=== PATIENT | male | born 1985 | race Caucasian/White ===

== ENCOUNTER 2023-04-23 09:48 | Emergency (ER) | payer SELFPAY ==
--- OUTSIDE RECORDS SUMMARY | 2023-04-23 10:05 | XMS REPORT | Continuity of Care Document ---
:1985 Author Organization [facility] t Address [address] [facility] [address] [place] [id number] Care Team Providers Name Role Phone PCP, PATIENT DOES NOT HAVE A Primary Care Physician Unavaila ble RADIOLOGY Attending Clinician Unavailable Radiology Attending Clinician Unavailable STEFANI WATSON Attending Clinician Unavailable Chapincito Anderson MD Attending Clinician Mahad Hayden DO Attending Clinician Stefani Dean Attending Clinician Jose Angel Kate DO Attending Clinician Lab, Ad[facility] I Attending Clinician Unavailable Malorie Altamirano Attending Clinician Doctor Unassigned, [place] Attending Clinician Unavailable Milana Arreguin DO Attending Clinician MILANA ARREGUIN Attending Clinician Unavailable Harsh Beaver S Attending Clinician HARSH BADILLO Attending Clinician Unavailable Patricia Nassar RN Attending Clinician Binh Caruso Attending Clinician Valarie Felder MD Attending Clinician BINH TAVERAS Attending Clinician Unavailable Mickie Roberts Attending Clinician Jeremias Hazel Attending Clinician Dora Olivia MD Attending Clinician JEREMIAS ELIZONDO Attending Clinician Unavailable BRIANA NOLAN Admitting Clinician Unavailable Bradford MUNIZ, Valarie Admitting Clinician Corwin MUNIZ, Dora Admitting Clinician Payers Payer Name Policy Type Policy Number Effective Date Expiration Date S lalo [employer] [id number] 2020 00:00:00 Problems Condition Condition Condition Status Onset Resolution Last Treating Co mments Source Name Details Category Date Date Treatment Clinician Date Alcohol Alcohol Disease Active Univers withdrawal withdrawal 8-02 it y of 00:: [place] [facility] Sinus Sinus Disease Active Univers tachycardi tachycardi 2- it y of a a 00:: [place] [address] [facility] Essential Essential Disease Active Uni vers hypertensi hypertensi 2-29 it y of on on 00:: [place] [address] [facility] Branch Alcohol Alcohol Disease Active Univers intoxicati intoxicati 2-28 it y of on on 00:: [place] [address] Medical Branch Obesity Obesity Disease Active Univers (BMI (BMI 4-17 ity of 30-39.9) 30-39.9) 00:00: [place] [address] Medical Branch Allergies, Adverse Reactions, Alerts Allergy Allergy Status Severity Reaction(s) Onset Inactive Treating Comm ents Source Name Type Date Date Clinician NO KNOWN Drug Active Univers ALLERGIE Class ity of S [place] [facility] Social History Social Habit Start Date Stop Date Quantity Comments Source Exposure to Not sure Rembrandt of SARS-CoV-2 [place] [facility] (event) Branch History [facility] University o f Alcohol Binge [place] [facility] History of Current smoker University of tobacco use [place] [facility] History [facility] University o f Alcohol Comment [place] [facility] Alcohol intake 2021-01-04 2021-01-04 Current drinker Unive rsity of 00:00:00 00:00:00 of alcohol [place] [facility] (finding) Branch History [facility] 2020-01-19 2020-01-19 5 University o f Alcohol Frequency 00:00:00 00:00:00 [place] [facility] History [facility] 2020-01-19 2020-01-19 5 University o f Alcohol Std 00:00:00 00:00:00 [place] [facility] Tobacco use and 2020-01-18 2020-01-18 Smokeless tobacco Un iversity of exposure 00:00:00 00:00:00 non-user [facility] Sex Assigned At [birth year] Universit y of 00:00:00 00:00:00 [facility] Smoking Status Start Date Stop Date Source Ex-smoker 2020-01-18 00:00:00 2020-01-18 00:00:00 [facility] Medications Ordered Filled Start Stop Current Ordering Indication Dosage Frequency Signature Comments Components Source Medication Medication Date Date Medication? Clinician (SIG) Name Name TAKE 1 2022-0 No TABLET 9-15 DAILY. 00:00: 00 TAKE 1 2022-0 No 10 TABLET 9-05 TWICE 00:00: DAILY. 00 TAKE 1 2022-0 No TABLET 9-05 TWICE 00:00: DAILY. 00 TAKE 1 2022-0 No 750 TABLET AT 8-09 BEDTIME 00:00: NEEDED. 00 TAKE 1 2022-0 No 750 TABLET AT 8-09 BEDTIME 00:00: NEEDED. 00 TAKE 1 2022-0 No 750 TABLET AT 8-09 BEDTIME 00:00: NEEDED. 00 lisinopril 2022-0 No 1mg 5 mg tablet 7 00:00: 00 propranolol 2022-0 No 1mg 10 mg 7-22 tablet 00:00: 00 lisinopril 2022-0 No 1mg 5 mg tablet 7 00:00: 00 propranolol 2022-0 No 1mg 10 mg 7-22 tablet 00:00: 00 TAKE 1 2022-0 No TABLET 7-22 DAILY. 00:00: 00 propranolol 2022-0 No 1mg 10 mg 7-22 tablet 00:00: 00 lisinopril 2022-0 No 1mg 5 mg tablet 6 00:00: 00 propranolol 2022-0 No 1mg 10 mg 6-22 tablet 00:00: 00 lisinopril 2022-0 No 1mg 5 mg tablet 6 00:00: 00 propranolol 2022-0 No 1mg 10 mg 6-22 tablet 00:00: 00 lisinopril 2022-0 No 1mg 5 mg tablet 05-12 00:00: 00 propranolol 2022-0 No 1mg 10 mg 6-22 tablet 00:00: 00 lisinopril 2022-0 No 1mg 5 mg tablet 05-12 00:00: 00 propranolol 2022-0 No 1mg 10 mg 6-22 tablet 00:00: 00 lisinopril 2022-0 No 1mg 5 mg tablet 5-16 00:00: 00 propranolol 2022-0 No 1mg 10 mg 5-16 tablet 00:00: 00 lisinopril 2022-0 No 1mg 5 mg tablet 5-16 00:00: 00 propranolol 2022-0 No 1mg 10 mg 5-16 tablet 00:00: 00 lisinopril 2022-0 No 1mg 5 mg tablet 5-16 00:00: 00 propranolol 2022-0 No 1mg 10 mg 5-16 tablet 00:00: 00 lisinopril 2022-0 No 1mg 5 mg tablet 5-16 00:00: 00 propranolol 2022-0 No 1mg 10 mg 5-16 tablet 00:00: 00 lisinopril 2022-0 No 1mg 5 mg tablet 1 00:00: 00 propranolol 2022-0 No 1mg 10 mg 1-25 tablet 00:00: 00 lisinopril 2022-0 No 1mg 5 mg tablet 125 00:00: 00 lisinopril 2022-0 No 1mg 5 mg tablet 1 00:00: 00 propranolol 2022-0 No 1mg 10 mg 1-25 tablet 00:00: 00 propranolol 2022-0 No 1mg 10 mg 1-25 tablet 00:00: 00 lisinopril 2022-0 No 1mg 5 mg tablet 1 00:00: 00 propranolol 2022-0 No 1mg 10 mg 1-25 tablet 00:00: 00 lisinopril 1-1 No 1mg 5 mg tablet 029 00:00: 00 propranolol 2021-1 No 1mg 10 mg 0-29 tablet 00:00: 00 lisinopril 2021-1 No 1mg 5 mg tablet 0-29 00:00: 00 propranolol 2021-1 No 1mg 10 mg 0-29 tablet 00:00: 00 lisinopril 2021-1 No 1mg 5 mg tablet 0-29 00:00: 00 propranolol 2021-1 No 1mg 10 mg 0-29 tablet 00:00: 00 lisinopril 2021-1 No 1mg 5 mg tablet 0-29 00:00: 00 propranolol 2021-1 No 1mg 10 mg 0-29 tablet 00:00: 00 lisinopril 2020-1 No 1mg 5 mg tablet 0-12 00:00: 00 lisinopril 2020-1 No 1mg 5 mg tablet 0-12 00:00: 00 lisinopril 2020-1 No 1mg 5 mg tablet 0-12 00:00: 00 lisinopril 2020-1 No 1mg 5 mg tablet 0-12 00:00: 00 lisinopril 1-0 No 1mg 5 mg tablet 7 00:00: 00 propranolol 2021-0 No 1mg 10 mg 7-07 tablet 00:00: 00 lisinopril 1-0 No 1mg 5 mg tablet 05-27 00:00: 00 propranolol 1-0 No 1mg 10 mg 7-07 tablet 00:00: 00 lisinopril 1-0 No 1mg 5 mg tablet 05-27 00:00: 00 propranolol 1-0 No 1mg 10 mg 7-07 tablet 00:00: 00 lisinopril 1-0 No 1mg 5 mg tablet 05-27 00:00: 00 propranolol 1-0 No 1mg 10 mg 7-07 tablet 00:00: 00 hydrOXYzine 2020-0 2020- No 25mg 25 mg, Uni vers (ATARAX) 01-05 Oral, ity of tablet 25 00:00: 23:04 ONCE, 1 [place] mg [place] :[place] dose, [facility] 01/04/21 at Branch 1800, TIA metoclopram 2020- No 10mg 10 mg, Uni vers niko HCl 01-04 Slow IV ity of (REGLAN) 23:45: 22:39 Push, [place] injection 00 :00 ONCE, 1 Medical 10 mg dose, [place] Branch 01/04/21 at 1745, TIA ondansetron 2020- No 4mg 4 mg, Slow Univers (ZOFRAN 01-04 IV Push, ity of (PF)) 20:30: 19:33 ONCE, 1 [place] injection 4 00 :00 dose, [facility] mg 01/04/21 at Branch 1430, TIA LORazepam 2020-0 2020- No 1mg 1 mg, Slow U nivers (ATIVAN) 2-14 02-14 IV Push, ity of injection 1 20:30: 19:35 ONCE, 1 [place] mg 00 :00 dose, [facility] 01/04/21 at Branch 1430, STAT NaCl 0.9% 2020- No 1000mL at 999 Uni vers (NS) bolus -14 02-14 mL/hr, ity of infusion 19:30: 23:52 1,000 mL, [place] 1,000 mL 00 :00 IV Medical Infusion, Branch ONCE, 1 dose, [place] 01/04/21 at 1330, TIA hydrOXYzine 2020-0 Yes [id number] 25mg Take 1 Univers 25 mg 2-14 tablet by ity of tablet 00:00: mouth [place] 00 every 6 Medical (six) Branch hours as needed for Anxiety. hydrOXYzine 2020-0 Yes [id number] 25mg Take 1 Univers 25 mg 2-14 tablet by ity of tablet 00:00: mouth [place] 00 every 6 Medical (six) Branch hours as needed for Anxiety. hydrOXYzine 2020-0 Yes [id number] 25mg Take 1 Univers 25 mg 2-14 tablet by ity of tablet 00:00: mouth [place] 00 every 6 Medical (six) Branch hours as needed for Anxiety. hydrOXYzine 2020-0 Yes [id number] 25mg Take 1 Univers 25 mg 2-14 tablet by ity of tablet 00:00: mouth [place] 00 every 6 Medical (six) Branch hours as needed for Anxiety. hydrOXYzine 2020-0 Yes [id number] 25mg Take 1 Univers 25 mg 2-14 tablet by ity of tablet 00:00: mouth [place] 00 every 6 Medical (six) Branch hours as needed for Anxiety. hydrOXYzine 2020-0 Yes [id number] 25mg Take 1 Univers 25 mg 2-14 tablet by ity of tablet 00:00: mouth [place] 00 every 6 Medical (six) Branch hours as needed for Anxiety. hydrOXYzine 2020-0 Yes [id number] 25mg Take 1 Univers 25 mg 2-14 tablet by ity of tablet 00:00: mouth [place] 00 every 6 Medical (six) Branch hours as needed for Anxiety. hydrOXYzine 2020-0 Yes [id number] 25mg Take 1 Univers 25 mg 2-14 tablet by ity of tablet 00:00: mouth [place] 00 every 6 Medical (six) Branch hours as needed for Anxiety. hydrOXYzine 2020-0 Yes [id number] 25mg Take 1 Univers 25 mg 2-14 tablet by ity of tablet 00:00: mouth [place] 00 every 6 Medical (six) Branch hours as needed for Anxiety. lisinopril 1-0 No 1mg 5 mg tablet 12-17 00:00: 00 lisinopril 1-0 No 1mg 5 mg tablet 12-17 00:00: 00 propranolol 1-0 No 1mg 10 mg -27 tablet 00:00: 00 propranolol 1-0 No 1mg 10 mg -27 tablet 00:00: 00 lisinopril 1-0 No 1mg 5 mg tablet 12-17 00:00: 00 propranolol 1-0 No 1mg 10 mg -27 tablet 00:00: 00 lisinopril 1-0 No 1mg 5 mg tablet 12-17 00:00: 00 propranolol 1-0 No 1mg 10 mg -27 tablet 00:00: 00 lisinopril 1-0 No 1mg 5 mg tablet 12-12 00:00: 00 propranolol 1-0 No 1mg 10 mg -22 tablet 00:00: 00 lisinopril 1-0 No 1mg 5 mg tablet 12-12 00:00: 00 propranolol 1-0 No 1mg 10 mg -22 tablet 00:00: 00 lisinopril 1-0 No 1mg 5 mg tablet 12-12 00:00: 00 propranolol 1-0 No 1mg 10 mg -22 tablet 00:00: 00 lisinopril 1-0 No 1mg 5 mg tablet 12-12 00:00: 00 propranolol 1-0 No 1mg 10 mg -22 tablet 00:00: 00 ondansetron 2019- No 4mg 4 mg, Slow Univers (ZOFRAN 06-29 IV Push, ity of (PF)) 00:15: 23:24 ONCE, 1 [place] injection 4 00 :00 dose, [facility] Med ical mg 06/28/20 at Branch 1915, TIA iohexol 0 2020- No 120mL 120 mL, Unive rs (OMNIPAQUE 06-28 08-08 Intravenou it y of 350 22:30: 22:30 s, ONCE, 1 [place] BULK-150 00 :00 dose, Sat Medica l mL) 06/28/20 at Branch injection 1730, 120 mL Routine ondansetron 2020-0 2020- No 4mg 4 mg, Univ ers (ZOFRAN-ODT 06-26- Oral, ity of ) 15:45: 14:38 ONCE, 1 [place] disintegrat 00 :00 dose, [facility] Med ical ing tablet 06/26/20 at Bran ch 4 mg 1045, Routine chlordiazeP 2020-0 2020- No 50mg 50 mg, Uni vers OXIDE 06-26-06 Oral, ity of (LIBRIUM) 15:15: 14:17 ONCE, 1 [place] capsule 50 00 :00 dose, [facility] Medi michelle mg 06/26/20 at Branch 1015, TIA ondansetron 2020-0 Yes [id number] 4mg Take 1 Univers 4 mg 8-06 tablet by ity of disintegrat 00:00: mouth [place] ing tablet 00 every 8 Medica l (eight) Branch hours as needed for Nausea and Vomiting (N/V). ondansetron 2020-0 Yes [id number] 4mg Take 1 Univers 4 mg 8-06 tablet by ity of disintegrat 00:00: mouth [place] ing tablet 00 every 8 Medica l (eight) Branch hours as needed for Nausea and Vomiting (N/V). ondansetron 2020-0 Yes [id number] 4mg Take 1 Univers 4 mg 8-06 tablet by ity of disintegrat 00:00: mouth [place] ing tablet 00 every 8 Medica l (eight) Branch hours as needed for Nausea and Vomiting (N/V). ondansetron 2020-0 Yes [id number] 4mg Take 1 Univers 4 mg 8-06 tablet by ity of disintegrat 00:00: mouth [place] ing tablet 00 every 8 Medica l (eight) Branch hours as needed for Nausea and Vomiting (N/V). ondansetron 2020-0 Yes [id number] 4mg Take 1 Univers 4 mg 8-06 tablet by ity of disintegrat 00:00: mouth [place] ing tablet 00 every 8 Medica l (eight) Branch hours as needed for Nausea and Vomiting (N/V). ondansetron 2020-0 Yes [id number] 4mg Take 1 Univers 4 mg 8-06 tablet by ity of disintegrat 00:00: mouth [place] ing tablet 00 every 8 Medica l (eight) Branch hours as needed for Nausea and Vomiting (N/V). ondansetron 2020-0 Yes [id number] 4mg Take 1 Univers 4 mg 8-06 tablet by ity of disintegrat 00:00: mouth [place] ing tablet 00 every 8 Medica l (eight) Branch hours as needed for Nausea and Vomiting (N/V). ondansetron 2020-0 Yes [id number] 4mg Take 1 Univers 4 mg 8-06 tablet by ity of disintegrat 00:00: mouth [place] ing tablet 00 every 8 Medica l (eight) Branch hours as needed for Nausea and Vomiting (N/V). ondansetron 2020-0 Yes [id number] 4mg Take 1 Univers 4 mg 8-06 tablet by ity of disintegrat 00:00: mouth [place] ing tablet 00 every 8 Medica l (eight) Branch hours as needed for Nausea and Vomiting (N/V). ondansetron 2020-0 Yes [id number] 4mg Take 1 Univers 4 mg 8-06 tablet by ity of disintegrat 00:00: mouth [place] ing tablet 00 every 8 Medica l (eight) Branch hours as needed for Nausea and Vomiting (N/V). ondansetron 2020-0 Yes [id number] 4mg Take 1 Univers 4 mg 8-06 tablet by ity of disintegrat 00:00: mouth [place] ing tablet 00 every 8 Medica l (eight) Branch hours as needed for Nausea and Vomiting (N/V). ondansetron 2020-0 Yes [id number] 4mg Take 1 Univers 4 mg 8-06 tablet by ity of disintegrat 00:00: mouth [place] ing tablet 00 every 8 Medica l (eight) Branch hours as needed for Nausea and Vomiting (N/V). chlordiazeP 2020-0 2020- No [id number] Take 2 Univers OXIDE 25 mg 8- 08-11 capsules ity of capsule 00:00: 04:59 by mouth 4 [place] 00 :00 (four) Medical times Branch daily for 1 day, THEN 1 capsule 4 (four) times daily for 1 day, THEN 1 capsule 2 (two) times daily for 1 day, THEN 1 capsule at bedtime for 1 day. chlordiazeP 2020-0 2020- No [id number] Take 2 Univers OXIDE 25 mg 8- 08-11 capsules ity of capsule 00:00: 04:59 by mouth 4 [place] 00 :00 (four) Medical times Branch daily for 1 day, THEN 1 capsule 4 (four) times daily for 1 day, THEN 1 capsule 2 (two) times daily for 1 day, THEN 1 capsule at bedtime for 1 day. chlordiazeP 2020-0 2020- No [id number] Take 2 Univers OXIDE 25 mg 8- capsules ity of capsule 00:00: 04:59 by mouth 4 [place] 00 :00 (four) Medical times Branch daily for 1 day, THEN 1 capsule 4 (four) times daily for 1 day, THEN 1 capsule 2 (two) times daily for 1 day, THEN 1 capsule at bedtime for 1 day. lisinopril 2020-0 Yes [id number] 5mg Take 1 Univers 5 mg tablet 8-05 tablet by ity of 00:00: mouth [place] 00 daily. Medical Branch lisinopril 2020-0 Yes [id number] 5mg Take 1 Univers 5 mg tablet 8-05 tablet by ity of 00:00: mouth [place] 00 daily. Medical Branch lisinopril 2020-0 Yes [id number] 5mg Take 1 Univers 5 mg tablet 8-05 tablet by ity of 00:00: mouth [place] 00 daily. Medical Branch lisinopril 2020-0 Yes [id number] 5mg Take 1 Univers 5 mg tablet 8-05 tablet by ity of 00:00: mouth [place] 00 daily. Medical Branch lisinopril 2020-0 Yes [id number] 5mg Take 1 Univers 5 mg tablet 8-05 tablet by ity of 00:00: mouth [place] 00 daily. Medical Branch lisinopril 2020-0 Yes [id number] 5mg Take 1 Univers 5 mg tablet 8-05 tablet by ity of 00:00: mouth [place] 00 daily. Medical Branch lisinopril 2020-0 Yes [id number] 5mg Take 1 Univers 5 mg tablet 8-05 tablet by ity of 00:00: mouth [place] 00 daily. Medical Branch lisinopril 2020-0 Yes [id number] 5mg Take 1 Univers 5 mg tablet 8-05 tablet by ity of 00:00: mouth [place] 00 daily. Medical Branch lisinopril 2020-0 Yes [id number] 5mg Take 1 Univers 5 mg tablet 8-05 tablet by ity of 00:00: mouth [place] 00 daily. Medical Branch lisinopril 2020-0 Yes [id number] 5mg Take 1 Univers 5 mg tablet 8-05 tablet by ity of 00:00: mouth [place] 00 daily. Medical Branch lisinopril 2020-0 Yes [id number] 5mg Take 1 Univers 5 mg tablet 8-05 tablet by ity of 00:00: mouth [place] 00 daily. Medical Branch lisinopril 2020-0 Yes [id number] 5mg Take 1 Univers 5 mg tablet 8-05 tablet by ity of 00:00: mouth [place] 00 daily. Medical Branch lisinopril 2020-0 Yes [id number] 5mg Take 1 Univers 5 mg tablet 8-05 tablet by ity of 00:00: mouth [place] 00 daily. Medical Branch lisinopril 2020-0 Yes [id number] 5mg Take 1 Univers 5 mg tablet 8-05 tablet by ity of 00:00: mouth [place] 00 daily. Medical Branch venlafaxine 2020-0 Yes 837 150mg Take 150 U nivers XR 150 mg 8-04 mg by ity of 24 hr 16:09: mouth [place] capsule 33 daily with Medica l breakfast. Branch Indication s: anxious venlafaxine 2020-0 Yes 837 150mg Take 150 U nivers XR 150 mg 8-04 mg by ity of 24 hr 16:09: mouth [place] capsule 33 daily with Medica l breakfast. Branch Indication s: anxious venlafaxine 2020-0 Yes 837 150mg Take 150 U nivers XR 150 mg 8-04 mg by ity of 24 hr 16:09: mouth [place] capsule 33 daily with Medica l breakfast. Branch Indication s: anxious venlafaxine 2020-0 Yes 837 150mg Take 150 U nivers XR 150 mg 8-04 mg by ity of 24 hr 16:09: mouth [place] capsule 33 daily with Medica l breakfast. Branch Indication s: anxious venlafaxine 2020-0 Yes 837 150mg Take 150 U nivers XR 150 mg 8-04 mg by ity of 24 hr 16:09: mouth [place] capsule 33 daily with Medica l breakfast. Branch Indication s: anxious venlafaxine 2020-0 Yes 837 150mg Take 150 U nivers XR 150 mg 8-04 mg by ity of 24 hr 16:09: mouth [place] capsule 33 daily with Medica l breakfast. Branch Indication s: anxious venlafaxine 2020-0 Yes 837 150mg Take 150 U nivers XR 150 mg 8-04 mg by ity of 24 hr 16:09: mouth [place] capsule 33 daily with Medica l breakfast. Branch Indication s: anxious venlafaxine 2020-0 Yes 837 150mg Take 150 U nivers XR 150 mg 8-04 mg by ity of 24 hr 16:09: mouth [place] capsule 33 daily with Medica l breakfast. Branch Indication s: anxious venlafaxine 2020-0 Yes 837 150mg Take 150 U nivers XR 150 mg 8-04 mg by ity of 24 hr 16:09: mouth [place] capsule 33 daily with Medica l breakfast. Branch Indication s: anxious venlafaxine 2020-0 Yes 837 150mg Take 150 U nivers XR 150 mg 8-04 mg by ity of 24 hr 16:09: mouth [place] capsule 33 daily with Medica l breakfast. Branch Indication s: anxious venlafaxine 2020-0 Yes 837 150mg Take 150 U nivers XR 150 mg 8-04 mg by ity of 24 hr 16:09: mouth [place] capsule 33 daily with Medica l breakfast. Branch Indication s: anxious venlafaxine 2020-0 Yes 837 150mg Take 150 U nivers XR 150 mg 8-04 mg by ity of 24 hr 16:09: mouth [place] capsule 33 daily with Medica l breakfast. Branch Indication s: anxious venlafaxine 2020-0 Yes 837 150mg Take 150 U nivers XR 150 mg 8-04 mg by ity of 24 hr 16:09: mouth [place] capsule 33 daily with Medica l breakfast. Branch Indication s: anxious traMADol 50 2020-0 2020- No [id number] 50mg Take 50 mg Univers mg tablet 06-24 by mouth ity o f 15:08: 00:00 every 6 [place] 48 :00 (six) Medical hours as Branch needed. Indication s: pain venlafaxine 2020-0 Yes 837 150mg Take 150 U nivers XR 150 mg 8-04 mg by ity of 24 hr 11:09: mouth [place] capsule 33 daily with Medica l breakfast. Branch Indication s: anxious oxazepam 2020-0 2020- No 15mg [Order 1 Univ ers (SERAX) 06-24 Start] ity of capsule 15 05:00: 02:59 Name: [place] mg 00 :00 oxazepam Medical (SERAX) Branch capsule 15 mg Signed Summary: 15 mg, Oral, Q8H, 3 doses, First dose on Tue06/24/20 at 0000, Last dose on Tue06/24/20 at 1400, Routine [Order 1 End] [Order 2 Start] Name: oxazepam (SERAX) capsule 15 mg Signed Summary: 15 mg, Oral, Q12H, 2 doses, First dose on Tue06/24/20 at 2200, Last dose on Tue06/25/20 at 0800, Routine [Order 2 End] melatonin 2020-0 Yes 3mg 3 mg, Univers (MELATIN) 8-04 Oral, ity of tablet 3 mg 02:10: QHSPRN, [place] 23 Starting Medical 06/23/20 Branch at 2110, Until Discontinu ed, Routine, Insomnia propranolol 2020-0 Yes [id number] 10mg Take 1 Univers 10 mg 8-04 tablet by ity of tablet 00:00: mouth 2 (two) Medical times Branch daily. propranolol 2020-0 Yes [id number] 10mg Take 1 Univers 10 mg 8-04 tablet by ity of tablet 00:00: mouth (two) Medical times Branch daily. propranolol 2020-0 Yes [id number] 10mg Take 1 [facility] 10 mg 8-04 tablet by ity of tablet 00:00: mouth (two) Medical times Branch daily. propranolol 2020-0 Yes [id number] 10mg Take 1 Univers 10 mg 8-04 tablet by ity of tablet 00:00: mouth (two) Medical times Branch daily. propranolol 2020-0 Yes [id number] 10mg Take 1 Univers 10 mg 8-04 tablet by ity of tablet 00:00: mouth (two) Medical times Branch daily. propranolol 2020-0 Yes [id number] 10mg Take 1 Univers 10 mg 8-04 tablet by ity of tablet 00:00: mouth 2 (two) Medical times Branch daily. propranolol 2020-0 Yes [id number] 10mg Take 1 Univers 10 mg 8-04 tablet by ity of tablet 00:00: mouth (two) Medical times Branch daily. propranolol 2020-0 Yes [id number] 10mg Take 1 Univers 10 mg 8-04 tablet by ity of tablet 00:00: mouth 2 (two) Medical times Branch daily. propranolol 2020-0 Yes [id number] 10mg Take 1 Univers 10 mg 8-04 tablet by ity of tablet 00:00: mouth 2 [place] 00 (two) Medical times Branch daily. propranolol 2020-0 Yes [id number] 10mg Take 1 Univers 10 mg 8-04 tablet by ity of tablet 00:00: mouth 2 [place] 00 (two) Medical times Branch daily. propranolol 2020-0 Yes [id number] 10mg Take 1 Univers 10 mg 8-04 tablet by ity of tablet 00:00: mouth 2 [place] 00 (two) Medical times Branch daily. propranolol 2020-0 Yes [id number] 10mg Take 1 Univers 10 mg 8-04 tablet by ity of tablet 00:00: mouth 2 [place] 00 (two) Medical times Branch daily. propranolol 2020-0 Yes [id number] 10mg Take 1 Univers 10 mg 8-04 tablet by ity of tablet 00:00: mouth 2 [place] (two) Medical times Branch daily. propranolol 2020-0 Yes [id number] 10mg Take 1 Univers 10 mg 8-04 tablet by ity of tablet 00:00: mouth 2 [place] (two) Medical times Branch daily. lisinopril 2020-0 Yes 5mg 5 mg, Univer s (PRINIVIL,Z 8- Oral, ity of ESTRIL) 14:00: DAILY, [place] tablet 5 mg 00 First dose Me dical on [facility] 06/23/20 at 0900, Until Discontinu ed, Routine foLIC acid 2020-0 Yes 1mg 1 mg, Univer s (FOLATE) 8 Oral, ity of tablet 1 mg 14:00: DAILY, [place] 00 First dose Medical on [facility] 06/23/20 at 0900, Until Discontinu ed, Routine thiamine 2020-0 Yes 100mg 100 mg, Unive rs (VITAMIN 8- Oral, ity of B1) tablet 14:00: DAILY, [place] 100 mg 00 First dose Medical on [facility] 06/23/20 at 0900, Until Discontinu ed, Routine enoxaparin 2020-0 Yes 40mg 40 mg, Unive rs (LOVENOX) 8 Subcutaneo ity of injection 14:00: [place], DAILY, [place] 40 mg 00 First dose Medical on [facility] 06/23/20 at 0900, Until Discontinu ed, Routine thiamine 2020-0 2020- No IV Univers (VITAMIN 8 08- Infusion, ity o f B1) 100 mg, 14:00: 22:09 at 100 [place] foLIC acid 00 :05 mL/hr, Medical (FOLATE) 1 DAILY, Branch mg, First dose multivitami on Tue n adult 06/23/20 at (INFUVITE 0900, ADULT) Until 3,300 unit- Discontinu 150 mcg/10 ed, 1,000 mL 10 mL in mL
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 venlafaxine 2020-0 Yes 837 75mg 75 mg, Univ ers XR (EFFEXOR 8-03 Oral, QAM ity of XR) 24 hr 13:00: WITH [place] capsule 75 00 BREAKFAST, Med ical mg First dose Branch on Tue06/23/20 at 0800, Until Discontinu ed, Routine propranolol 2020-0 Yes 10mg 10 mg, Univ ers (INDERAL) 8-03 Oral, BID, ity of tablet 10 03:00: First dose [place] mg 00 on [facility] 06/22/20 at Branch 2200, Until Discontinu ed, Routine LORazepam 2020-0 2020- No 2mg 2 mg, Slow U nivers (ATIVAN) 8 08-03 IV Push, ity of injection 2 03:00: 01:51 ONCE, 1 [place] mg 00 :00 dose, [facility] 06/22/20 at Branch 2200, STAT LORazepam 2020-0 Yes 2mg 2 mg, Slow Un jesus (ATIVAN) 8 IV Push, ity of injection 2 02:43: Q2HPRN, [place] mg 24 Starting [facility] 06/22/20 Branch at 2143, Until Discontinu ed, Routine, alcohol withdrawal oxazepam 2020-0 Yes 15mg 15 mg, Univers (SERAX) 8- Oral, ity of capsule 15 02:42: Q4HPRN, [place] mg 55 Starting [facility] 06/22/20 [place] at 2142, Until Discontinu ed, Routine, Only while awake for DBP equal to or greater than 100, HR equal to or greater than 100. glucagon 2020-0 Yes 1mg 1 mg, Univers (GLUCAGEN 06-23 Intramuscu ity of DIAGNOSTIC 02:41: [place], PRN, [place] KIT) 46 Starting Medical injection 1 [place] 06/22/20 Br anch mg at 2141, Until Discontinu ed, TIA, Blood Glucose < or = 70 mg/dL and patient is unable to swallow or has mental changes. dextrose 50 2019-0 Yes 25mL 25 mL, Univ ers % in water 06-23 Slow IV ity of (D50W) 02:41: Push, PRN, [place] injection 46 Starting Medica l 25 mL [place] 06/22/20 Branch at 2141, Until Discontinu ed, TIA, Blood Glucose < or = 70 mg/dL and patient is unable to swallow or has mental status changes. hydralAZINE 2019-0 2020- No 20mg 20 mg, Uni vers (APRESOLINE 06-23 Slow IV ity of ) injection 01:00: 00:22 Push, ONCE [place] 20 mg 00 :00 NOW, 1 Medical dose, [facility] 06/22/20 at 2000, TIA ondansetron 2019-0 2020- No 8mg 8 mg, Slow Univers (ZOFRAN 06-23 IV Push, ity of (PF)) 00:00: 23:09 ONCE, 1 [place] injection 8 00 :00 dose, [facility] mg 06/22/20 at Branch 1900, TIA LORazepam 2019- 2020- No 2mg 2 mg, Slow U nivers (ATIVAN) 06-23 IV Push, ity of injection 2 00:00: 23:11 ONCE[place] 1 [place] 00 :[place] dose, [facility] 06/22/20 at Branch 1900, STAT foLIC acid 2020- No 1mg 1 mg, Unive rs (FOLATE) 06-23 Oral, ity of tablet 1 mg 00:00: 23:14 [place]CE, 1 [place] :[place] dose, [facility] 06/22/20 at Branch 1900, TIA thiamine 2019-0 2020- No 100mg 100 mg, Univ ers (VITAMIN 06-23 Intravenou ity of B1) 00:00: 23:12 s, ONCE, 1 [place] injection 00 :00 dose, [facility] 100 mg 06/22/20 at Branch 1900, TIA
In dication: [place] NaCl 0.9% 2019-0 2020- No 30mL/kg at 999 Un jesus (NS) bolus 8 08-03 mL/hr, ity of infusion 23:00: 02:55 2,721 [place] 2,721 [place] 00 :00 (30 mL/kg Medica l ?90.7 kg), Branch IV Infusion, ONCE, 1 dose, 06/22/20 at 1800, TIA propranolol 2020-0 No 1mg 10 mg 7-21 tablet 00:00: 00 lisinopril 2020-0 No 1mg 5 mg tablet 7 00:00: 00 propranolol 2020-0 No 1mg 10 mg 7-21 tablet 00:00: 00 lisinopril 2020-0 No 1mg 5 mg tablet 7 00:00: 00 propranolol 2020-0 No 1mg 10 mg 7-21 tablet 00:00: 00 lisinopril 2020-0 No 1mg 5 mg tablet 7 00:00: 00 propranolol 2020-0 No 1mg 10 mg 7-21 tablet 00:00: 00 lisinopril 2020-0 No 1mg 5 mg tablet 7 00:00: 00 lisinopril 2020-0 No 1mg 5 mg tablet 6 00:00: 00 propranolol 2020-0 No 1mg 10 mg 6-09 tablet 00:00: 00 lisinopril 2020-0 No 1mg 5 mg tablet 6 00:00: 00 propranolol 2020-0 No 1mg 10 mg 6-09 tablet 00:00: 00 lisinopril 2020-0 No 1mg 5 mg tablet 6 00:00: 00 propranolol 2020-0 No 1mg 10 mg 6-09 tablet 00:00: 00 lisinopril 2020-0 No 1mg 5 mg tablet 6 00:00: 00 propranolol 2020-0 No 1mg 10 mg 6-09 tablet 00:00: 00 lisinopril 2020-0 No 1mg 10 mg 5-26 tablet 00:00: 00 lisinopril 2020-0 No 1mg 10 mg 5-26 tablet 00:00: 00 lisinopril 2020-0 No 1mg 10 mg 5-26 tablet 00:00: 00 lisinopril 2020-0 No 1mg 10 mg 5-26 tablet 00:00: 00 lisinopril 2020-0 No 1mg 10 mg 5-04 tablet 00:00: 00 lisinopril 2020-0 No 1mg 10 mg 5-04 tablet 00:00: 00 lisinopril 2020-0 No 1mg 10 mg 5-04 tablet 00:00: 00 lisinopril 2020-0 No 1mg 10 mg 5-04 tablet 00:00: 00 propranolol 2020-0 No 1mg 10 mg 4-07 tablet 00:00: 00 propranolol 2020-0 No 1mg 10 mg 4-07 tablet 00:00: 00 propranolol 2020-0 No 1mg 10 mg 4-07 tablet 00:00: 00 propranolol 2020-0 No 1mg 10 mg 4-07 tablet 00:00: 00 propranolol 2020-0 No 1mg 10 mg 3-01 tablet 00:00: 00 propranolol 2020-0 No 1mg 10 mg 3-01 tablet 00:00: 00 propranolol 2020-0 No 1mg 10 mg 3-01 tablet 00:00: 00 propranolol 2020-0 No 1mg 10 mg 3-01 tablet 00:00: 00 foLIC acid 2019-0 2020- No [id number] 1mg Take 1 Univers 1 mg tablet 01-19 tablet by it y of 00:00: 04:59 mouth [place] 00 :00 daily for Medical 30 days. Branch thiamine 2020-0 2020- No [id number] 100mg Take 1 U nivers 100 mg -02-19 tablet by ity of tablet 00:00: 04:59 mouth [place] 00 :00 daily for Medical 30 days. Branch foLIC acid 2019-0 2020- No [id number] 1mg Take 1 Univers 1 mg tablet 01-19 tablet by it y of 00:00: 04:59 mouth [place] 00 :00 daily for Medical 30 days. Branch thiamine 2020-0 2020- No [id number] 100mg Take 1 U nivers 100 mg -11 24- tablet by ity of tablet 00:00: 04:59 mouth [place] 00 :00 daily for Medical 30 days. Branch foLIC acid 2020-0 2020- No [id number] 1mg Take 1 Univers 1 mg tablet 01-19 tablet by it y of 00:00: 04:59 mouth [place] 00 :00 daily for Medical 30 days. Branch thiamine 2020-0 2020- No [id number] 100mg Take 1 U nivers 100 mg -02-19 tablet by ity of tablet 00:00: 04:59 mouth [place] 00 :00 daily for Medical 30 days. Branch oxazepam 15 2019-0 2020- No [id number] 15mg Take 1 Univers mg capsule 01-19 capsule by it y of 00:00: 05:59 mouth [place] 00 :00 every 12 Medical (twelve) Branch hours for 2 doses. oxazepam 15 2020-0 2020- No [id number] 15mg Take 1 Univers mg capsule 01-19 capsule by it y of 00:00: 05:59 mouth [place] 00 :00 every 12 Medical (twelve) Branch hours for 2 doses. oxazepam 15 2019-0 2020- No [id number] 15mg Take 1 Univers mg capsule 01-19 capsule by it y of 00:00: 05:59 mouth [place] 00 :00 every 12 Medical (twelve) Branch hours for 2 doses. oxazepam 2020-0 2020- No 15mg [Order 1 Univ ers (SERAX) 01-19 Start] ity of capsule 15 00:00: 19:59 Name: [place] mg 00 :00 oxazepam Medical (SERAX) Branch capsule 15 mg Signed Summary: 15 mg, Oral, Q8H, 3 doses, First dose on 01/19/20 at 1800, Last dose on 01/20/20 at 0600, Routine [Order 1 End] [Order 2 Start] Name: oxazepam (SERAX) capsule 15 mg Signed Summary: 15 mg, Oral, Q12H, 2 doses, First dose on 01/20/20 at 1400, Last dose on 01/20/20 at 2000, Routine [Order 2 End] venlafaxine 2020-0 Yes [id number] 150mg Take 150 U nivers XR 150 mg 2-29 mg by ity of 24 hr 19:35: mouth [place] capsule 37 daily with Medica l breakfast. Branch Indication s: anxious traMADol 50 2020-0 Yes [id number] 50mg Take 50 mg Univers mg tablet 2-29 by mouth ity of 19:35: every 6 [place] 37 (six) Medical hours as Branch needed. Indication s: pain venlafaxine 2020-0 Yes 837 150mg Take 150 U nivers XR 150 mg 2-29 mg by ity of 24 hr 19:35: mouth [place] capsule 37 daily with Medica l breakfast. Branch Indication s: anxious traMADol 50 2020-0 Yes [id number] 50mg Take 50 mg Univers mg tablet 2-29 by mouth ity of 19:35: every 6 [place] 37 (six) Medical hours as Branch needed. Indication s: pain venlafaxine 2020-0 Yes 837 150mg Take 150 U nivers XR 150 mg 2-29 mg by ity of 24 hr 19:35: mouth [place] capsule 37 daily with Medica l breakfast. Branch Indication s: anxious traMADol 50 2020-0 Yes [id number] 50mg Take 50 mg Univers mg tablet 2-29 by mouth ity of 19:35: every 6 [place] 37 (six) Medical hours as Branch needed. Indication s: pain venlafaxine 2020-0 Yes 837 150mg Take 150 U nivers XR 150 mg 2-29 mg by ity of 24 hr 19:35: mouth [place] capsule 37 daily with Medica l breakfast. Branch Indication s: anxious traMADol 50 2020-0 Yes [id number] 50mg Take 50 mg Univers mg tablet 2-29 by mouth ity of 19:35: every 6 [place] 37 (six) Medical hours as Branch needed. Indication s: pain foLIC acid 2020-0 Yes 1mg 1 mg, Univer s (FOLATE) -29 Oral, ity of tablet 1 mg 15:00: DAILY, [place] 00 First dose Medical on Sat Branch 01/19/20 at 0900, Until Discontinu ed, Routine docusate 2020-0 Yes 100mg 100 mg, Unive rs (COLACE) - Oral, BID, ity o f capsule 100 14:00: First dose [place] mg 00 on Sat Medical 01/19/20 at Branch 0800, Until Discontinu ed, Routine lactated 2020-0 2020- No 1000mL at 125 Univ ers ringers IV 03-01 mL/hr, ity of infusion 06:30: 06:29 1,000 mL, [place] 1,000 mL 00 :00 IV Medical Infusion, Branch CONTINUOUS , Starting 01/19/20 at 0030, Until 01/20/20 at 0029, Routine multivitami 2020-0 Yes 1{tbl} 1 tablet, Univers n tablet 1 Oral, ity of tablet 05:30: DAILY, [place] 00 First dose Medical on Tue Branch 01/18/20 at 2330, Until Discontinu ed, Routine thiamine 2020-0 Yes 100mg 100 mg, Unive rs (VITAMIN 2- Oral, ity of B1) tablet 05:30: DAILY, [place] 100 mg 00 First dose Medical on Fri Branch 01/18/20 at 2330, Until Discontinu ed, Routine propranolol 2020-0 Yes 10mg 10 mg, Univ ers (INDERAL) - Oral, BID, ity of tablet 10 05:30: First dose [place] 00 on [facility] 01/18/20 at Branch 2330, Until Discontinu ed, Routine traMADol 2020-0 Yes 50mg 50 mg, Univers (ULTRAM) - Oral, ity of tablet 50 05:19: Q8HPRN, [place] mg 25 Starting Medical [facility] 01/18/20 at 2319, Until Discontinu ed, Routine, Pain (scale 4-6), Pain (scale 7-10) ondansetron 2020-0 Yes 4mg 4 mg, Slow Univers (ZOFRAN IV Push, ity of (PF)) 05:18: Q6HPRN, [place] injection 4 23 Starting Medi michelle mg [facility] 01/18/20 at 2318, Until Discontinu ed, Routine, Nausea and Vomiting (N/V) NaCl 0.9% 2020-0 2020- No 1000mL at 999 Uni vers (NS) bolus -29 mL/hr, ity of infusion 03:00: 02:08 1,000 mL, [place] 1,000 mL 00 :00 IV Medical Infusion, [place] ONCE, 1 dose, [facility] 01/18/20 at 2100, STAT foLIC acid 2020-0 2020- No 1mg 1 mg, Unive rs (FOLATE) Oral, ity of tablet 1 mg 02:45: 02:08 ONCE, 1 [place] 00 :00 dose, [facility] 01/18/20 at Branch 2045, TIA oxazepam 2020-0 Yes 15mg 15 mg, Univers (SERAX) - Oral, ity of capsule 15 01:38: Q4HPRN, [place] mg 27 Starting Medical [facility] 01/18/20 at 1938, Until Discontinu ed, Routine, Only while awake for DBP equal to or greater than 100, HR equal to or greater than 100. NaCl 0.9% 2020-0 2020- No 1000mL at 999 Uni vers (NS) bolus --29 mL/hr, ity of infusion 00:15: 00:48 1,000 mL, [place] 1,000 mL 00 :00 IV Medical Infusion, Branch ONCE, 1 dose, 01/18/20 at 1815, STAT LORazepam 2019-2019- No 1mg 1 mg, Slow U nivers (ATIVAN) 01-18 IV Push, ity of injection 1 00:15: 23:24 ONCE, 1 [place] mg 00 :00 dose, Fri Medical 01/18/20 at Branch 1815, STAT propranolol 2019-0 2020- No [id number] 10mg Take 1 Univers 10 mg 02-18 tablet by ity of tablet 00:00: 04:59 mouth 2 [place] 00 :00 (two) Medical times Branch daily for 30 days. propranolol 2020-0 2020- No [id number] 10mg Take 1 Univers 10 mg 02-18 tablet by ity of tablet 00:00: 04:59 mouth 2 [place] 00 :00 (two) Medical times Branch daily for 30 days. propranolol 2019-0 2020- No [id number] 10mg Take 1 Univers 10 mg 02-18 tablet by ity of tablet 00:00: 04:59 mouth 2 [place] 00 :00 (two) Medical times Branch daily for 30 days. oxazepam 15 2019-0 2020- No [id number] 15mg Take 1 Univers mg capsule 01-20 capsule by it y of 00:00: 05:59 mouth [place] 00 :00 every 6 Medical (six) Branch hours for 2 doses. oxazepam 15 2019-0 2020- No [id number] 15mg Take 1 Univers mg capsule 01-20 capsule by it y of 00:00: 05:59 mouth [place] 00 :00 every 8 Medical (eight) Branch hours for 3 doses. Immunizations Ordered Immunization Filled Immunization Date Status Commen ts Source Name Name Pfizer COVID-19 Vaccine 2021-07-20 Completed 00:00:00 Pfizer COVID-19 Vaccine 2021-07-20 Completed 00:00:00 Pfizer COVID-19 Vaccine 2021-07-20 Completed 00:00:00 Pfizer COVID-19 Vaccine 2021-07-20 Completed 00:00:00 Pfizer COVID-19 Vaccine 2021-06-29 Completed 00:00:00 Pfizer COVID-19 Vaccine 2021-06-29 Completed 00:00:00 Pfizer COVID-19 Vaccine 2021-06-29 Completed 00:00:00 Pfizer COVID-19 Vaccine 2021-06-29 Completed 00:00:00 Vital Signs Vital Name Observation Time Observation Value Comments Source Systolic blood 2021-01-22 16:25:00 122 mm[Hg] Univer sity of pressure [place] [facility] Diastolic blood 2021-01-22 16:25:00 81 mm[Hg] Unive rsity of pressure [place] [facility] Body height 2021-01-22 16:25:00 172.7 cm [facility] [place] [facility] Body weight 2021-01-22 16:25:00 90.719 kg [facility] [place] [facility] BMI 2021-01-22 16:25:00 30.41 kg/m2 [facility] [place] [facility] Systolic blood 2021-01-21 14:49:00 134 mm[Hg] Univer sity of pressure [place] [facility] Diastolic blood 2021-01-21 14:49:00 83 mm[Hg] Unive rsity of pressure [place] [facility] Heart rate 2021-01-21 14:49:00 72 /min [facility] [place] [facility] Body temperature 2021-01-21 14:49:00 37.33 Sona [facility] ers[facility] [place] [facility] Respiratory rate 2021-01-21 14:49:00 16 /min Univ ersity [facility] [place] [facility] Body height 2021-01-21 14:49:00 172.7 cm [facility] [place] [facility] Body weight 2021-01-21 14:49:00 90.719 kg [facility] [place] [facility] BMI 2021-01-21 14:49:00 30.41 kg/m2 [facility] [place] [facility] Oxygen saturation in 2021-01-21 14:49:00 97 /min University of Arterial blood by [place] [employer]xim[facility] michelle Pulse oximetry Branch Heart rate 2021-01-04 23:35:00 93 /min [facility] [place] [facility] Respiratory rate 2021-01-04 23:35:00 18 /min Univ ersity of [place] [facility] Oxygen saturation in 2021-01-04 23:35:00 97 /min University of Arterial blood by [place] [employer] michelle Pulse oximetry Branch Systolic blood 2021-01-04 23:05:00 175 mm[Hg] Univer sity of pressure [place] [facility] Diastolic blood 2021-01-04 23:05:00 89 mm[Hg] Unive rsity of pressure [place] [facility] Body temperature 2021-01-04 19:08:00 37.06 Sona [facility] ers[facility] [place] [facility] Body weight 2021-01-04 19:08:00 95.255 kg [facility] [place] [facility] BMI 2021-01-04 19:08:00 31.93 kg/m2 [facility] [place] [facility] Systolic blood 2020-06-29 01:00:00 124 mm[Hg] Univer sity of pressure [place] [facility] Diastolic blood 2020-06-29 01:00:00 100 mm[Hg] Unive rsity of pressure [place] [facility] Heart rate 2020-06-29 01:00:00 70 /min [facility] [place] [facility] Respiratory rate 2020-06-29 01:00:00 18 /min Univ ersity [facility] [place] [facility] Oxygen saturation in 2020-06-29 01:00:00 100 /min University of Arterial blood by [place] Pulse oximetry Branch Body temperature 2020-06-28 20:12:00 37.5 Sona Univ ers[facility] [place] [facility] Body weight 2020-06-28 20:12:00 90.719 kg [facility] [place] [facility] BMI 2020-06-28 20:12:00 30.41 kg/m2 [facility] [place] [facility] Systolic blood 2020-06-26 15:00:00 110 mm[Hg] Univer sity of pressure [place] [facility] Diastolic blood 2020-06-26 15:00:00 73 mm[Hg] Unive rsity of pressure [place] [facility] Heart rate 2020-06-26 15:00:00 95 /min [facility] [place] [facility] Respiratory rate 2020-06-26 15:00:00 18 /min Univ ersity [facility] [place] [facility] Oxygen saturation in 2020-06-26 15:00:00 100 /min University of Arterial blood by [place] Pulse oximetry Branch Body temperature 2020-06-26 13:56:00 37.11 Sona Univ ers[facility] [place] [facility] Body weight 2020-06-26 13:56:00 99.791 kg [facility] [place] [facility] BMI 2020-06-26 13:56:00 33.45 kg/m2 [facility] [place] [facility] Systolic blood 2020-06-24 12:44:00 133 mm[Hg] Univer sity of pressure [place] [facility] Diastolic blood 2020-06-24 12:44:00 81 mm[Hg] Unive rsity of pressure [place] [facility] Heart rate 2020-06-24 12:44:00 71 /min [facility]i ty [facility] [place] [facility] [place] Body temperature 2020-06-24 12:44:00 36.56 Sona [facility] [place] [facility] Respiratory rate 2020-06-24 12:44:00 16 /min Univ ersity [facility] [place] [facility] Oxygen saturation in 2020-06-24 12:44:00 92 /min University of Arterial blood by [facility] Pulse oximetry Branch Body height 2020-06-23 03:30:00 172.7 cm [facility] [place] [facility] Body weight 2020-06-23 03:30:00 90.719 kg [facility] [place] [facility] BMI 2020-06-23 03:30:00 30.41 kg/m2 [facility] [place] [facility] [place] Body temperature 2020-01-19 11:07:00 36.17 Sona [facility] [place] [facility] Respiratory rate 2020-01-19 11:07:00 18 /min Univ ersity [facility] [place] [facility] Oxygen saturation in 2020-01-19 11:07:00 96 /min University of Arterial blood by [facility] Pulse oximetry Branch Systolic blood 2020-01-19 11:07:00 139 mm[Hg] Univer sity of pressure [place] [facility] Diastolic blood 2020-01-19 11:07:00 98 mm[Hg] Unive rsity of pressure [place] [facility] [place] Heart rate 2020-01-19 11:07:00 64 /min [facility] [place] [facility] Body height 2020-01-19 05:30:00 172.7 cm [facility] [place] [facility] Body weight 2020-01-19 05:30:00 91.491 kg [facility] [place] [facility] BMI 2020-01-19 05:30:00 30.67 kg/m2 [facility] [place] [facility] BP Systolic 2022-08-05 08:23:00 144 mm[Hg] BP Diastolic 2022-08-05 08:23:00 85 mm[Hg] Weight Measured 2022-08-05 08:23:00 226.00 pounds Height Measured 2022-08-05 08:23:00 68.00 inches Body Temperature 2022-08-05 08:23:00 98.20 degrees Heart Rate 2022-08-05 08:23:00 67.00 /min Respiratory Rate 2022-08-05 08:23:00 18.00 /min BP Systolic 2022-07-26 09:56:00 130 mm[Hg] BP Diastolic 2022-07-26 09:56:00 88 mm[Hg] Weight Measured 2022-07-26 09:56:00 223.00 pounds Height Measured 2022-07-26 09:56:00 68.00 inches Body Temperature 2022-07-26 09:56:00 98.10 degrees Heart Rate 2022-07-26 09:56:00 81.00 /min Respiratory Rate 2022-07-26 09:56:00 19.00 /min BP Systolic 2022-06-29 15:47:00 149 mm[Hg] BP Diastolic 2022-06-29 15:47:00 102 mm[Hg] Weight Measured 2022-06-29 15:47:00 225.20 pounds Height Measured 2022-06-29 15:47:00 68.00 inches Body Temperature 2022-06-29 15:47:00 98.30 degrees Heart Rate 2022-06-29 15:47:00 81.00 /min Respiratory Rate 2022-06-29 15:47:00 18.00 /min BP Systolic 2022-05-12 08:30:00 128 mm[Hg] BP Diastolic 2022-05-12 08:30:00 81 mm[Hg] Weight Measured 2022-05-12 08:30:00 224.20 pounds Height Measured 2022-05-12 08:30:00 68.00 inches Body Temperature 2022-05-12 08:30:00 98.20 degrees Heart Rate 2022-05-12 08:30:00 78.00 /min Respiratory Rate 2022-05-12 08:30:00 18.00 /min BP Systolic 2021-12-15 16:57:00 138 mm[Hg] BP Diastolic 2021-12-15 16:57:00 88 mm[Hg] Weight Measured 2021-12-15 16:57:00 221.80 pounds Height Measured 2021-12-15 16:57:00 68.00 inches Body Temperature 2021-12-15 16:57:00 98.20 degrees Heart Rate 2021-12-15 16:57:00 83.00 /min Respiratory Rate 2021-12-15 16:57:00 BP Systolic 2021-09-14 10:39:00 148 mm[Hg] BP Diastolic 2021-09-14 10:39:00 98 mm[Hg] Weight Measured 2021-09-14 10:39:00 218.20 pounds Height Measured 2021-09-14 10:39:00 68.00 inches Body Temperature 2021-09-14 10:39:00 97.40 degrees Heart Rate 2021-09-14 10:39:00 60.00 /min Respiratory Rate 2021-09-14 10:39:00 18.00 /min BP Systolic 2021-05-27 11:04:00 128 mm[Hg] BP Diastolic 2021-05-27 11:04:00 85 mm[Hg] Weight Measured 2021-05-27 11:04:00 216.40 pounds Height Measured 2021-05-27 11:04:00 68.00 inches Body Temperature 2021-05-27 11:04:00 98.10 degrees Heart Rate 2021-05-27 11:04:00 83.00 /min Respiratory Rate 2021-05-27 11:04:00 17.00 /min BP Systolic 2020-12-12 11:48:00 115 mm[Hg] BP Diastolic 2020-12-12 11:48:00 78 mm[Hg] Weight Measured 2020-12-12 11:48:00 210.00 pounds Height Measured 2020-12-12 11:48:00 68.00 inches Body Temperature 2020-12-12 11:48:00 98.20 degrees Heart Rate 2020-12-12 11:48:00 81.00 /min Respiratory Rate 2020-12-12 11:48:00 16.00 /min BP Systolic 2020-06-10 10:58:00 142 mm[Hg] BP Diastolic 2020-06-10 10:58:00 93 mm[Hg] Weight Measured 2020-06-10 10:58:00 207.00 pounds Height Measured 2020-06-10 10:58:00 68.00 inches Body Temperature 2020-06-10 10:58:00 98.60 degrees Heart Rate 2020-06-10 10:58:00 78.00 /min Respiratory Rate 2020-06-10 10:58:00 16.00 /min BP Systolic 2020-04-29 14:14:00 138 mm[Hg] BP Diastolic 2020-04-29 14:14:00 88 mm[Hg] Weight Measured 2020-04-29 14:14:00 202.00 pounds Height Measured 2020-04-29 14:14:00 68.00 inches Body Temperature 2020-04-29 14:14:00 98.30 degrees Heart Rate 2020-04-29 14:14:00 98.00 /min Respiratory Rate 2020-04-29 14:14:00 BP Systolic 2020-04-15 10:54:00 128 mm[Hg] BP Diastolic 2020-04-15 10:54:00 80 mm[Hg] Weight Measured 2020-04-15 10:54:00 206.00 pounds Height Measured 2020-04-15 10:54:00 68.00 inches Body Temperature 2020-04-15 10:54:00 97.90 degrees Heart Rate 2020-04-15 10:54:00 80.00 /min Respiratory Rate 2020-04-15 10:54:00 16.00 /min Height Measured 2020-03-24 14:12:00 68.00 inches Body Temperature 2020-03-24 14:12:00 98.00 degrees Heart Rate 2020-03-24 14:12:00 93.00 /min Respiratory Rate 2020-03-24 14:12:00 16.00 /min BP Systolic 2020-03-24 14:12:00 145 mm[Hg] BP Diastolic 2020-03-24 14:12:00 95 mm[Hg] Weight Measured 2020-03-24 14:12:00 201.80 pounds BP Systolic 2020-02-22 10:36:00 149 mm[Hg] BP Diastolic 2020-02-22 10:36:00 94 mm[Hg] Weight Measured 2020-02-22 10:36:00 Height Measured 2020-02-22 10:36:00 Body Temperature 2020-02-22 10:36:00 Heart Rate 2020-02-22 10:36:00 Respiratory Rate 2020-02-22 10:36:00 Procedures Procedure Date / Time Performing Clinician Source Performed US ABDOMEN LIMITED 2022-08-12 14:09:16 [facility] CONSENT/REFUSAL FOR 2022-08-12 13:30:26 Doctor Unassigned, [facility] ASSIGNMENT OF BENEFITS 2022-08-12 13:29:52 Doctor Unassigned, No [facility] XR HAND 3+ VW RIGHT 2021-01-21 15:30:47 Jose Angel Kate [facility] CONSENT/REFUSAL FOR 2021-01-21 14:42:20 Doctor Unassigned, No [facility] CT HEAD WO CONTRAST 2021-01-04 19:58:17 Milana Arreguin [facility] LIPASE 2021-01-04 19:33:00 Milana Arreguin [facility] HEPATIC FUNCTION PANEL 2021-01-04 19:33:00 Milana [facility] ([id number] (ALB,T.PRO,BILI [facility] Branch T,BU/BC,ALT,AST,ALK PHOS) BASIC METABOLIC PANEL 2021-01-04 19:33:00 [facility]reg[facility] [place] (NA, K, CL, CO2, Medical Branch GLUCOSE, BUN, CREATININE, CA) ETHANOL 2021-01-04 19:33:00 Milana Arreguin [facility] CBC WITH DIFF 2021-01-04 19:33:00 Milana Arreguin [facility] NOTICE OF PRIVACY 2021-01-04 19:03:20 Doctor Unassigned, No Univ [facility] PRACTICES [facility] CONSENT/REFUSAL FOR 2021-01-04 19:02:40 Doctor Unassigned, No Un iversity [facility] DIAGNOSIS AND TREATMENT [facility] CT ABDOMEN PELVIS W 2020-06-28 22:27:07 Harsh Badillo [facility] CONTRAST Medical Branch URINALYSIS 2020-06-28 21:34:00 Harsh Badillo [facility] Medical [place] LIPASE 2020-06-28 21:21:00 Harsh Badillo [facility] Medical Branch COMP. METABOLIC PANEL 2020-06-28 21:21:00 Harsh Badillo [facility] ([id number]) Medical Branch CBC WITH DIFF 2020-06-28 21:21:00 Harsh Badillo [facility] NOTICE OF PRIVACY 2020-06-28 20:01:32 Doctor Unassigned, No [facility] PRACTICES Name Medical Branch CONSENT/REFUSAL FOR 2020-06-28 20:00:56 Doctor Unassigned, No [facility] Name Medical Branch CONSENT/REFUSAL FOR 2020-06-26 13:52:05 Doctor Unassigned, No Un [facility] DIAGNOSIS AND TREATMENT Name Medical Branch COMP. METABOLIC PANEL 2020-06-24 08:57:00 Sin Rasmussen [facility] ([id number]) Medical Branch US ABDOMEN LIMITED 2020-06-24 00:05:32 Sin Rasmussen [facility] ADC / LCC - DRUG SCREEN 2020-06-23 11:38:00 [facility] TRIAGE Medical Branch MAGNESIUM 2020-06-23 10:51:00 [facility] BASIC METABOLIC PANEL 2020-06-23 10:51:00 [facility] (NA, K, CL, CO2, Medical Branch GLUCOSE, BUN, CREATININE, CA) COVID-19 (ID NOW RAPID 2020-06-23 00:20:00 Emigdio [facility] TESTING) Medical Branch XR CHEST 1 VW 2020-06-23 00:07:39 Emigdio [facility] EKG-12 LEAD 2020-06-22 23:24:24 Emigdio [facility] PHOSPHORUS 2020-06-22 23:05:00 Emigdio [facility] MAGNESIUM 2020-06-22 23:05:00 Emigdio [facility] TROPONIN I 2020-06-22 23:05:00 Emigdio [facility] HEPATIC FUNCTION PANEL 2020-06-22 23:05:00 Emigdio [facility] ([id number]) (ALB,T.PRO,BILI Medical Branch T,BU/BC,ALT,AST,ALK PHOS) BASIC METABOLIC PANEL 2020-06-22 23:05:00 Binh Taveras [facility] (NA, K, CL, CO2, Medical Branch GLUCOSE, BUN, CREATININE, CA) ETHANOL 2020-06-22 23:05:00 [facility] 2020-06-22 23:05:00 Emigdio [facility] URINALYSIS 2020-06-22 23:05:00 Emigdio [facility] N-TERMINAL PRO-BNP 2020-06-22 23:05:00 [facility] 2020-06-22 22:57:51 Emigdio [facility] NOTICE OF PRIVACY 2020-06-22 22:36:32 Doctor Unassigned, No [facility] PRACTICES Name Medical Branch CONSENT/REFUSAL FOR 2020-06-22 22:36:16 Doctor Unassigned, No [facility] DIAGNOSIS AND TREATMENT Name [facility] COMP. METABOLIC PANEL 2020-01-19 10:18:00 Corwin roney [facility] ([id number]) Medical Branch ETHANOL 2020-01-19 10:18:00 Corwin roney [facility] CBC WITH DIFFERENTIAL 2020-01-19 10:18:00 [facility]win [facility] HEPATITIS B SURFACE 2020-01-19 10:18:00 Corwin [facility] ANTIBODY [facility] HEPATITIS B SURFACE 2020-01-19 10:18:00 [facility] ANTIGEN [facility] HCV ANTIBODY 2020-01-19 10:18:00 Corwin [facility] HEPATITIS B CORE 2020-01-19 10:18:00 Corwin [facility] ANTIBODY IGM [facility] HAV ANTIBODY (IGG AND 2020-01-19 10:18:[address] [facility] IGM) [facility] EKG-12 LEAD 2020-01-19 05:28:07 Corwin [facility] EKG-12 LEAD 2020-01-18 23:25:58 Mihkail [facility] ADC / LCC - DRUG SCREEN 2020-01-18 23:23:00 Mikhail [facility] TRIAGE [facility] CREATINE KINASE 2020-01-18 23:07:00 Dora Olivia [facility] TROPONIN I 2020-01-18 23:07:00 Mikhail [facility] THYROID STIMULATING 2020-01-18 23:07:00 Dora Olivia [facility] HORMONE [facility] COMP. METABOLIC PANEL 2020-01-18 23:07:00 Mikhail Jeremias [facility] ([id number]) Medical Branch ETHANOL 2020-01-18 23:07:00 Mikhail [facility] CBC WITH DIFFERENTIAL 2020-01-18 23:07:00 Mikhail Jeremias [facility] GLYCOSYLATED HEMOGLOBIN 2020-01-18 23:07:00 Corwin [facility] (A1C) [facility] HIV 1/2 AG-AB WITH 2020-01-18 23:07:00 Dora Olivia [facility] REFLEX [facility] EKG-12 LEAD 2020-01-18 23:06:24 Mikhail Jeremias [facility] CONSENT/REFUSAL FOR 2020-01-18 22:29:16 Doctor Unassigned, No Un [facility] DIAGNOSIS AND TREATMENT Name Medical Branch Plan of Care Planned Activity Planned Date Details Comments Source Goal Plan of Care Note [code = 05269-3] Goal Plan of Care Note [code = 02857-4] Goal Plan of Care Note [code = 82920-5] Goal Plan of Care Note [code = 73246-3] Goal Plan of Care Note [code = 47090-9] Goal Plan of Care Note [code = 85636-0] Goal Plan of Care Note [code = 47542-7] Goal Plan of Care Note [code = 78916-6] Goal Plan of Care Note [code = 80257-6] Goal Plan of Care Note [code = 85394-5] Goal Plan of Care Note [code = 44201-8] Goal Plan of Care Note [code = 02756-3] Goal Plan of Care Note [code = 87250-5] Goal Plan of Care Note [code = 78512-6] Goal Plan of Care Note [code = 88394-4] Goal Plan of Care Note [code = 26485-1] Goal Plan of Care Note [code = 58613-9] Goal Plan of Care Note [code = 46929-4] Goal Plan of Care Note [code = 55653-5] Goal Plan of Care Note [code = 51081-4] Goal Plan of Care Note [code = 69533-7] Goal Plan of Care Note [code = 30206-6] Goal Plan of Care Note [code = 91492-5] Goal Plan of Care Note [code = 35399-6] Goal Plan of Care Note [code = 23670-2] Goal Plan of Care Note [code = 01453-1] Goal Plan of Care Note [code = 81864-2] Goal Plan of Care Note [code = 55919-7] Goal Plan of Care Note [code = 88382-1] Goal Plan of Care Note [code = 68086-3] Goal Plan of Care Note [code = 64333-4] Goal Plan of Care Note [code = 15235-7] Goal Plan of Care Note [code = 92259-1] Goal Plan of Care Note [code = 86207-3] Goal Plan of Care Note [code = 57135-2] Goal Plan of Care Note [code = 87724-2] Goal Plan of Care Note [code = 84237-0] Goal Plan of Care Note [code = 40347-5] Goal Plan of Care Note [code = 41337-5] Goal Plan of Care Note [code = 75891-9] Goal Plan of Care Note [code = 99762-6] Goal Plan of Care Note [code = 27281-7] Goal Plan of Care Note [code = 79024-1] Goal Plan of Care Note [code = 29623-1] Goal Plan of Care Note [code = 63896-9] Goal Plan of Care Note [code = 37724-5] Encounters Start End Encounter Admission Attending Care Care Encounter Source Date/Time Date/Time Type Type Clinicians Facility Department ID 2021-09-20 Emergency [facility] [id number] [facility]-02-02 2023-02-02 Outpatient NADEGE LIGHT [id number] Saleem 09:05:12 09:05:12 0315 Radha Mtz 2022-11-09 2022-11-09 Outpatient [facility] [id number] Saleem 10:37:35 10:37:35 1220 F Smith 2022-09-06 2022-09-06 Outpatient [facility] [id number] Saleem 12:56:10 12:56:10 1017 F Smith 2022-08-12 2022-08-12 Outpatient R RADIOLOGY [facility] RAD [id number] Univers 08:32:30 23:59:00 ity of [facility] 2022-08-12 2022-08-12 Hospital Radiology [facility] 1.2.840.114 [id number] [facility] 08:32:30 23:59:00 Encounter [place] 350.1.13.10 ity [facility] 4.2.7.2.686 [facility] [id number] [address] 2022-08-05 2022-08-05 Outpatient 2f4v2kk0- [id number] 0c 7d7xh3-9 00:00:00 00:00:00 Visit 35ab-4b63 5ab-4b63-a -l634-596 682-4890a5 5q6949td3 497bb9 2022-07-26 2022-07-26 Outpatient [id number] 788164-6 00:00:00 00:00:00 Visit 5140-4cb7 140-4cb7-a -g9h4-u60 7b0-b645s7 1y321gu44 07db18 2022-06-29 2022-06-29 Outpatient z3iew979- [id number] a2 iiw733-3 00:00:00 00:00:00 Visit 053d-4efe 53d-4efe-8 -83ff-e2a 3ff-e2a5c0 1m774fx15 58eb08 2022-06-11 2022-06-11 Outpatient 3kjgb5l8- [id number] 0e hhw3b7-1 00:00:00 00:00:00 Visit 28af-46f6 8af-46f6-a -c08x-475 66d-4312a6 7r6w61h51 f50e85 2021-02-23 2021-02-23 Outpatient Kristie WATSON [facility] [id number] Univers 14:45:00 14:45:00 [facility] 2021-02-23 2021-02-23 Telephone Justin [facility] 1.2.840.114 [id number] Univers 00:00:00 00:00:00 [place] [facility] [id number] it y of Surgical 4.2.7.2.686 [place] Specialti [phone] Me dical es 198 [facility] 2021-02-09 2021-02-09 Patient Catracho [facility] 1.2.840.114 [id number] Univers 00:00:00 00:00:00 Outreach Mahad PRIMARY [id number] i ty of [facility] [place]2.[place].2.[place] [facility] [phone] Me dical [address] [place] 2021-01-22 2021-01-22 Office Shirley [facility] 1.2.840.114 [id number] Univers 10:16:48 10:31:48 Visit [facility] [id number] it y of Surgical 4.2.7.2.686 [place] Specialti [phone] Me dical es 198 [facility] 2021-01-22 2021-01-22 Outpatient R SHIRLEY [facility] [id number] Univers 10:15:00 10:15:00 [facility] 2021-01-21 2021-01-21 Emergency [facility] 1.2.194.193 [id number] Univers 08:52:00 10:40:00 Jose Angel Dean [id number] i ty [place] [phone] [facility] michelle [address] [place] 2021-01-21 2021-01-21 Laboratory Lab, Adc Fam Pob I [facility] 1.2. 840.114 [id number] Univers 08:29:38 08:49:38 Only Malorie [facility] 350.1.13.10 ity of [place] 4.2.7.2.686 [place] as Professio [phone] Me dical nal [address] [place] [address] [facility] 2021-01-21 2021-01-21 Outpatient R [facility] [id number] Univers 08:20:00 08:20:00 ity of [facility] 2021-01-21 2021-01-21 Letter Doctor MARIA DOLORES 1.2.840.114 [id number] Univers 00:00:00 00:00:00 (Out) Unassigned, RICHARD [id number] ity of [place] [facility] 4.2.7.2.686 Twan as [phone] [facility] [address] [place] 2021-01-04 2021-01-04 Emergency [facility] 1.2.840.114 [id number] Univers 13:09:00 18:00:00 Milana Dean [id number] ity of [place] 4.2.7.2.686 [facility] [phone] [facility] [address] [place] 2021-01-04 2021-01-04 Emergency [facility] [id number] Univers 13:09:00 13:09:00 MILANA ity [facility] 2020-06-28 2020-06-28 Emergency [facility] 1.2.994.409 [id number] Univers 15:14:00 20:34:00 Harsh Dean 350.1.13.10 i ty of [place] 4.2.7.2.686 [facility] [id number] [facility] [address] [place] 2020-06-28 2020-06-28 Emergency [facility] [id number] Univers 15:01:00 15:01:00 HARSH ity [facility] 2020-06-28 2020-06-28 Orders Doctor MARIA DOLORES 1.2.840.114 [id number] Univers 00:00:00 00:00:00 Only Unassigned, RICHARD [id number] ity of [place] [facility] 4.2.7.2.686 Twan as [phone] [facility] 009 Branch 2020-06-26 2020-06-26 Emergency [facility] 1.2.853.824 [id number] Univers 09:01:00 10:58:00 Jose Angel Dean 350.1.13.10 i ty of [place] 4.2.7.2.686 [facility] [phone] [facility] [address] [place] 2020-06-26 2020-06-26 Emergency X [facility] ERT [id number] Univers 08:52:00 08:52:00 ity of [facility] 2020-06-25 2020-06-25 Transition Chito Nassar 1.2.840.114 [id number] Univers 00:00:00 00:00:00 of Care Patricia Goodmany 350.1.13.10 i ty of [place].2.[place] [phone] [facility] [address] [place] 2020-06-22 2020-06-24 [facility] Lenka Taverasanne [facility] 1.2.840. 114 [id number] Univers 17:49:00 11:00:00 Encounter Valarie Felder [id number] ity of [place] 4.2.7.2.686 [facility] [id number] [address] 2020-06-22 2020-06-22 Emergency X [facility] ERT [id number] Univers 17:38:00 17:38:00 BINH ity of [facility] 2020-06-22 2020-06-22 Orders Doctor MARIA DOLORES 1.2.840.114 [id number] Univers 00:00:00 00:00:00 Only Unassigned, RICHARD 350.1.13.10 ity of [place] [facility] 4.2.7.2.686 [place] [phone] [facility] 009 Branch 2020-01-21 2020-01-21 Transition Chito Roberts 1.2.840.114 [id number] Univers 00:00:00 00:00:00 of Care Mickie Goodmany 350.1.13.10 ity of [place]2.[place] [phone] [facility] [address] [place] 2020-01-18 2020-01-19 [facility] 1.2.840.1 14 [id number] Univers 16:59:04 13:32:00 Encounter Dora Olivia 350.1.13.10 ity of [place] 4.2.7.2.686 [facility] [phone] [facility] 081 Branch 2020-01-18 2020-01-18 Emergency X MIKHAIL [facility] ERT [id number] Univers 16:59:04 16:59:04 JEREMIAS redding [facility] Results Test Description Test Time Test Comments Results Result Comments Source LIPID PANEL 2023-02-03 06:06:02 Test Item Value Reference Range Interpretation Comme nts CHOLESTEROL (test code = 2210) 263 MG/DL <200 H TRIGLYCERIDES (test code = 2232) 171 MG/DL <150 H HDL CHOLESTEROL (test code = 38 MG/DL >39 L 2219) CALC LDL CHOL (test code = 2237) 191 MG/DL <100 H NOTE: CALCULATED LDL IS BASED ON MIKHAIL-VELIZ METHOD WHICHINCLUDES A DJUSTABLE TRIGLYCERIDE:VL DL CHOLESTEROL RATIO.THIS FACT OR VARIES BY MEASURED TRIGLY CERIDE AND NON-HDLCHOLESTE ROL CONCENTRATIONS WITH INCREASED CALCULATED LDL SEENIN HIGHER T RIGLYCERIDE OR LOWER NON-HDL S PECIMENS. FOR MOREINFORMATION , SEE CLIENT ANNOUNCEMENT AT [email or web address] RATIO LDL/HDL (test code = 5.03 RATIO <3.55 H 2237) COMPREHENSIVE METABOLIC [id number] 06:06:02 Test Item Value Reference Range Interpretation Comments GLUCOSE (test code = 129 MG/DL 70-99 H 2216) BUN (test code = 8 MG/DL 6-20 2207) CREATININE (test 0.57 MG/DL 0.80-1.40 L code = 2214) eGFR (2020 CKD-EPI) 128 >60 (test code = 94300) ML/MIN/1.73 CALC BUN/CREAT (test 14 RATIO 05-18 code = 2235) SODIUM (test code = 139 MEQ/L 055-480 7666) POTASSIUM (test code 4.4 MEQ/L 3.5-5.4 = 2227) CHLORIDE (test code 102 MEQ/L 95-107 = 221) CARBON DIOXIDE (test 23 MEQ/L 19-31 code = 2206) CALCIUM (test code = 9.5 MG/DL 8.5-10.5 2208) PROTEIN, TOTAL (test 7.4 G/DL 6.1-8.3 code = 2229) ALBUMIN (test code = 4.6 G/DL 3.5-5.2 2200) CALC GLOBULIN (test 2.8 G/DL 1.9-3.7 code = 2240) CALC A/G RATIO (test 1.6 RATIO 1.0-2.6 code = 2234) BILIRUBIN, TOTAL 0.5 MG/DL See_Comment [Automated message] (test code = 2207) The syste m which generated this result transmitted ref erence range: <=1.2. T he reference range was not used to int erpret this result as normal/abnormal . ALKALINE PHOSPHATASE 101 U/L 40-117 (test code = 220) AST (test code = 201 U/L 9-50 H 2217) ALT (test code = 128 U/L 5-50 H CPL leung s 2218) important patho logy staff changes effective 01/19. New patholo gy staff will prov niko uninterrupted, excellent patie nt care and clinic al consultation. S ee URL: [email or web address]. UNLE SS OTHERWISE INDIC ATED, ALL TESTING PER FORMED AT CL[facility]ICAL [facility] [employer], [facility]. [address] [place] [address] DELVIN PHILLIPS DIRECTOR: Caryn WEI EASTON NUMBER [id number] CAP ACCREDITATION N O. [id number] COMPREHENSIVE METABOLIC [id number] 03:35:07 Test Item Value Reference Range Interpretation Comments GLUCOSE (test code = 105 MG/DL 70-99 H 2216) BUN (test code = 7 MG/DL 6-20 2207) CREATININE (test 0.64 MG/DL 0.80-1.40 L code = 2214) eGFR (2020 CKD-EPI) 123 >60 (test code = 97260) ML/MIN/1.73 CALC BUN/CREAT (test 11 RATIO 6-28 code = 2235) SODIUM (test code = 141 MEQ/L 553-957 7447) POTASSIUM (test code 4.8 MEQ/L 3.5-5.4 = 2227) CHLORIDE (test code 103 MEQ/L 95-107 = 2214) CARBON DIOXIDE (test 23 MEQ/L 19-31 code = 220) CALCIUM (test code = 9.2 MG/DL 8.5-10.5 2208) PROTEIN, TOTAL (test 7.5 G/DL 6.1-8.3 code = 2229) ALBUMIN (test code = 4.5 G/DL 3.5-5.2 2200) CALC GLOBULIN (test 3.0 G/DL 1.9-3.7 code = 2240) CALC A/G RATIO (test 1.5 RATIO 1.0-2.6 code = 2234) BILIRUBIN, TOTAL 0.5 MG/DL See_Comment [Automated message] (test code = 2207) The syste m which generated this result transmitted ref erence range: <=1.2. T he reference range was not used to int erpret this result as normal/abnormal . ALKALINE PHOSPHATASE 103 U/L 40-117 (test code = 2204) AST (test code = 137 U/L 9-50 H 2217) ALT (test code = 115 U/L 5-50 H UNLESS OTH ERWISE 2218) INDICATED, ALL TESTING PERFORM ED [facility]CLINICAL PATH [facility] [employer], [facility]. [address] [place] [id number] [place] [address] DIRECTOR: PRISCA HERNANDEZ M.D. CLIA NUMBER [id number] CAP ACCREDITATION N O. [id number] HEPATITIS PANEL, [id number] 06:55:10 Test Item Value Reference Range Interpretation Comments HEPATITIS A IgM (test NON-REACTIVE NON-REACTIVE code = 95944) HEPATITIS B CORE IgM NON-REACTIVE NON-REACTIVE (test code = 4644) HEPATITIS B SURF AG NON-REACTIVE NON-REACTIVE (test code = 2739) HEPATITIS C ANTIBODY NON-REACTIVE NON-REACTIVE (test code = 4675) INTERPRETATION (NOTE) Hepatitis A HEPATITIS A: (test serology shows no code = 2552) evidence of acu te hepatitis A. INTERPRETATION (NOTE) Hepatitis B HEPATITIS B: (test serology shows no code = 51193) evidence of ac sherry hepatitis B and no indication of exposure to hepatitis B vir us in the previous si xto eight months. INTERPRETATION (NOTE) Hepatitis C HEPATITIS C: (test serology shows no code = 95540) evidence of ex posure to hepatitisC v irus at this time. I t can take up to 12 m onths after exposure tothe hepatitis C vir us for antibodies to become detectab le in the blood in ce rtain patients. UNLES S OTHERWISE INDIC ATED, ALL TESTING PERFORMED [facility] [place]. [address] [place] [address] [facility] DIRECTOR: Caryn CHARLESIA NUMBER [id number] [facility] [id number] HEMOGLOBIN [id number] 06:25:42 Test Item Value Reference Range Interpretation Comments HEMOGLOBIN A1c (test code = 35865) 6.0 % 4.2-5.6 H COMPREHENSIVE METABOLIC [id number] 06:24:21 Test Item Value Reference Range Interpretation Comments GLUCOSE (test code = 104 MG/DL 70-99 H 2216) BUN (test code = 7 MG/DL 6-20 2207) CREATININE (test 0.68 MG/DL 0.80-1.40 L code = 221) eGFR (2020 CKD-EPI) 122 >60 (test code = 04151) ML/MIN/1.73 CALC BUN/CREAT (test 10 RATIO 6-28 code = 2235) SODIUM (test code = 140 MEQ/L 356-720 1334) POTASSIUM (test code 4.3 MEQ/L 3.5-5.4 = 2227) CHLORIDE (test code 101 MEQ/L 95-107 = 221) CARBON DIOXIDE (test 22 MEQ/L 19-31 code = 2206) CALCIUM (test code = 9.6 MG/DL 8.5-10.5 2208) PROTEIN, TOTAL (test 7.1 G/DL 6.1-8.3 code = 2229) ALBUMIN (test code = 4.2 G/DL 3.5-5.2 2200) CALC GLOBULIN (test 2.9 G/DL 1.9-3.7 code = 2240) CALC A/G RATIO (test 1.4 RATIO 1.0-2.6 code = 2234) BILIRUBIN, TOTAL 0.6 MG/DL See_Comment [Automated message] (test code = 2207) The syste m which generated this result transmit charli reference range : <=1.2. The refe rence range was not u sed to interpret th is result as normal/abnormal . ALKALINE PHOSPHATASE 102 U/L 40-117 (test code = 2204) AST (test code = 170 U/L 9-50 H 2217) ALT (test code = 98 U/L 5-50 H 2218) LIPID [id number] 06:24:21 Test Item Value Reference Range Interpretation Comments CHOLESTEROL (test 235 MG/DL <200 H code = 2210) TRIGLYCERIDES (test 173 MG/DL <150 H code = 2232) HDL CHOLESTEROL (test 30 MG/DL >39 L code = 2220) CALC LDL CHOL (test 172 MG/DL <100 H NOTE: C ALCULATED LDL code = 2237) IS BASED ON MIKHAIL-VELIZ METHOD WHICHINCLUDES ADJUSTABLE TRIGLYCERIDE:VL DL CHOLESTEROL RAT IO.THIS FACTOR VARIES B Y MEASURED TRIGLY CERIDE AND NON-HDLCHOL ESTEROL CONCENTRATIONS WITH INCREASED CALCU LATED LDL SEENIN HIGH ER TRIGLYCERIDE OR LOWER NON-HDL SPECIME NS. FOR MOREINFORMATION , SEE CLIENT ANNOUNCE MENT AT [email or web address] [email or web address] RATIO LDL/HDL 5.73 RATIO <3.55 H UNLESS O THERWISE (test code = 2238) INDICATED , ALL TESTING PERFORMED [facility], [facility]. [address] [place] [address] [employer] DIRECTOR: PRISCA HERNANDEZ M.D. CLIA NUMBER [id number] CAP ACCREDITATION N O. [id number] COMPREHENSIVE METABOLIC [id number] 00:00:00 Test Item Value Reference Range Interpretation Comments GLUCOSE (test code = 2217) 104 MG/DL BUN (test code = 2208) 7 MG/DL CREATININE (test code = 2214) 0.68 MG/DL eGFR (2020 CKD-EPI) (test 122 ML/MIN/1.73 code = 99376) CALC BUN/CREAT (test code = 10 RATIO 2235) SODIUM (test code = 2231) 140 MEQ/L POTASSIUM (test code = 2228) 4.3 MEQ/L CHLORIDE (test code = 2215) 101 MEQ/L CARBON DIOXIDE (test code = 22 MEQ/L 2205) CALCIUM (test code = 2209) 9.6 MG/DL PROTEIN, TOTAL (test code = 7.1 G/DL 2228) ALBUMIN (test code = 2201) 4.2 G/DL CALC GLOBULIN (test code = 2.9 G/DL 2239) CALC A/G RATIO (test code = 1.4 RATIO 223) BILIRUBIN, TOTAL (test code = 0.6 MG/DL 2206) ALKALINE PHOSPHATASE (test 102 U/L code = 2204) AST (test code = 2218) 170 U/L ALT (test code = 2219) 98 U/L COMPREHENSIVE METABOLIC [id number] 00:00:00 Test Item Value Reference Range Interpretation Comments GLUCOSE (test code = 2217) 104 MG/DL BUN (test code = 2208) 7 MG/DL CREATININE (test code = 2214) 0.68 MG/DL eGFR (2020 CKD-EPI) (test 122 ML/MIN/1.73 code = 20456) CALC BUN/CREAT (test code = 10 RATIO 2235) SODIUM (test code = 2231) 140 MEQ/L POTASSIUM (test code = 2228) 4.3 MEQ/L CHLORIDE (test code = 2215) 101 MEQ/L CARBON DIOXIDE (test code = 22 MEQ/L 2205) CALCIUM (test code = 2209) 9.6 MG/DL PROTEIN, TOTAL (test code = 7.1 G/DL 2228) ALBUMIN (test code = 2201) 4.2 G/DL CALC GLOBULIN (test code = 2.9 G/DL 2240) CALC A/G RATIO (test code = 1.4 RATIO 2234) BILIRUBIN, TOTAL (test code = 0.6 MG/DL 2206) ALKALINE PHOSPHATASE (test 102 U/L code = 2204) AST (test code = 2218) 170 U/L ALT (test code = 2219) 98 U/L LIPID [id number] 00:00:00 Test Item Value Reference Range Interpretation Comments CHOLESTEROL (test code = 2210) 235 MG/DL TRIGLYCERIDES (test code = 2232) 173 MG/DL HDL CHOLESTEROL (test code = 2220) 30 MG/DL CALC LDL CHOL (test code = 2237) 172 MG/DL RISK RATIO LDL/HDL (test code = 5.73 RATIO 2238) LIPID [id number] 00:00:00 Test Item Value Reference Range Interpretation Comments CHOLESTEROL (test code = 2210) 235 MG/DL TRIGLYCERIDES (test code = 2232) 173 MG/DL HDL CHOLESTEROL (test code = 2220) 30 MG/DL CALC LDL CHOL (test code = 2237) 172 MG/DL RISK RATIO LDL/HDL (test code = 5.73 RATIO 2238) CBC W/AUTO [id number] 00:00:00 Test Item Value Reference Range Interpretation Comments WBC (test code = 1001) 7.2 K/UL RBC (test code = 1002) 4.46 M/UL HEMOGLOBIN (test code = 1003) 14.2 G/DL HEMATOCRIT (test code = 1004) 40.8 % MCV (test code = 1005) 91.5 fL MCH (test code = 1006) 31.8 PG MCHC (test code = 1007) 34.8 G/DL RDW (test code = 1038) 13.1 % NEUTROPHILS (test code = 1008) 60.0 % LYMPHOCYTES (test code = 1010) 28.0 % MONOCYTES (test code = 1011) 7.7 % EOSINOPHILS (test code = 1012) 2.2 % BASOPHILS (test code = 1013) 0.7 % IMMATURE GRANULOCYTES (test 1.4 % code = 1036) NUCLEATED RBCS (test code = 0.0 /100WBC'S 1065) PLATELET COUNT (test code = 197 K/UL 1015) ABSOLUTE NEUTROPHILS (test code 4.34 K/UL = 1066) ABSOLUTE LYMPHOCYTES (test code 2.03 K/UL = 1067) ABSOLUTE MONOCYTES (test code = 0.56 K/UL 1068) ABSOLUTE EOSINOPHILS (test code 0.16 K/UL = 1040) ABSOLUTE BASOPHILS (test code = 0.05 K/UL 1069) ABS IMMATURE GRANULOCYTES (test 0.10 K/UL code = 1020) ABS NUCLEATED RBCS (test code = 0.00 K/UL 13339) CBC W/AUTO [id number] 00:00:00 Test Item Value Reference Range Interpretation Comments WBC (test code = 1001) 7.2 K/UL RBC (test code = 1002) 4.46 M/UL HEMOGLOBIN (test code = 1003) 14.2 G/DL HEMATOCRIT (test code = 1004) 40.8 % MCV (test code = 1005) 91.5 fL MCH (test code = 1006) 31.8 PG MCHC (test code = 1007) 34.8 G/DL RDW (test code = 1038) 13.1 % NEUTROPHILS (test code = 1008) 60.0 % LYMPHOCYTES (test code = 1010) 28.0 % MONOCYTES (test code = 1011) 7.7 % EOSINOPHILS (test code = 1012) 2.2 % BASOPHILS (test code = 1013) 0.7 % IMMATURE GRANULOCYTES (test 1.4 % code = 1036) NUCLEATED RBCS (test code = 0.0 /100WBC'S 1065) PLATELET COUNT (test code = 197 K/UL 1015) ABSOLUTE NEUTROPHILS (test code 4.34 K/UL = 1066) ABSOLUTE LYMPHOCYTES (test code 2.03 K/UL = 1067) ABSOLUTE MONOCYTES (test code = 0.56 K/UL 1068) ABSOLUTE EOSINOPHILS (test code 0.16 K/UL = 1040) ABSOLUTE BASOPHILS (test code = 0.05 K/UL 1069) ABS IMMATURE GRANULOCYTES (test 0.10 K/UL code = 1020) ABS NUCLEATED RBCS (test code = 0.00 K/UL 02027) HEMOGLOBIN [id number] 00:00:00 Test Item Value Reference Range Interpretation Comments HEMOGLOBIN A1c (test code = 64557) 5.5 % HEMOGLOBIN [id number] 00:00:00 Test Item Value Reference Range Interpretation Comments HEMOGLOBIN A1c (test code = 88477) 5.5 % LIPID [id number] 00:00:00 Test Item Value Reference Range Interpretation Comments CHOLESTEROL (test code = 2210) 246 MG/DL TRIGLYCERIDES (test code = 2232) 347 MG/DL HDL CHOLESTEROL (test code = 2220) 47 MG/DL CALC LDL CHOL (test code = 2237) 146 MG/DL RISK RATIO LDL/HDL (test code = 3.11 RATIO 2238) COMPREHENSIVE METABOLIC [id number] 00:00:00 Test Item Value Reference Range Interpretation Comments GLUCOSE (test code = 2217) 116 MG/DL BUN (test code = 2208) 10 MG/DL CREATININE (test code = 2214) 0.79 MG/DL eGFR AMER. (test code 133 ML/MIN/1.73 = 94405) eGFR NON- AMER. (test 115 ML/MIN/1.73 code = 17167) CALC BUN/CREAT (test code = 13 RATIO 2235) SODIUM (test code = 2231) 141 MEQ/L POTASSIUM (test code = 2228) 4.2 MEQ/L CHLORIDE (test code = 2215) 102 MEQ/L CARBON DIOXIDE (test code = 24 MEQ/L 2205) CALCIUM (test code = 2209) 9.6 MG/DL PROTEIN, TOTAL (test code = 7.3 G/DL 2228) ALBUMIN (test code = 2201) 4.8 G/DL CALC GLOBULIN (test code = 2.5 G/DL 2240) CALC A/G RATIO (test code = 1.9 RATIO 2234) BILIRUBIN, TOTAL (test code = 0.4 MG/DL 2206) ALKALINE PHOSPHATASE (test 74 U/L code = 2204) AST (test code = 2218) 121 U/L ALT (test code = 2219) 124 U/L IRON, [id number] 00:00:00 Test Item Value Reference Range Interpretation Comments IRON, SERUM (test code = 2222) 129 UG/DL CBC W/AUTO [id number] 00:00:00 Test Item Value Reference Range Interpretation Comments WBC (test code = 1001) 7.2 K/UL RBC (test code = 1002) 4.46 M/UL HEMOGLOBIN (test code = 1003) 14.2 G/DL HEMATOCRIT (test code = 1004) 40.8 % MCV (test code = 1005) 91.5 fL MCH (test code = 1006) 31.8 PG MCHC (test code = 1007) 34.8 G/DL RDW (test code = 1038) 13.1 % NEUTROPHILS (test code = 1008) 60.0 % LYMPHOCYTES (test code = 1010) 28.0 % MONOCYTES (test code = 1011) 7.7 % EOSINOPHILS (test code = 1012) 2.2 % BASOPHILS (test code = 1013) 0.7 % IMMATURE GRANULOCYTES (test 1.4 % code = 1036) NUCLEATED RBCS (test code = 0.0 /100WBC'S 1065) PLATELET COUNT (test code = 197 K/UL 1015) ABSOLUTE NEUTROPHILS (test code 4.34 K/UL = 1066) ABSOLUTE LYMPHOCYTES (test code 2.03 K/UL = 1067) ABSOLUTE MONOCYTES (test code = 0.56 K/UL 1068) ABSOLUTE EOSINOPHILS (test code 0.16 K/UL = 1040) ABSOLUTE BASOPHILS (test code = 0.05 K/UL 1069) ABS IMMATURE GRANULOCYTES (test 0.10 K/UL code = 1020) ABS NUCLEATED RBCS (test code = 0.00 K/UL 21848) CBC W/AUTO [id number] 00:00:00 Test Item Value Reference Range Interpretation Comments WBC (test code = 1001) 7.2 K/UL RBC (test code = 1002) 4.46 M/UL HEMOGLOBIN (test code = 1003) 14.2 G/DL HEMATOCRIT (test code = 1004) 40.8 % MCV (test code = 1005) 91.5 fL MCH (test code = 1006) 31.8 PG MCHC (test code = 1007) 34.8 G/DL RDW (test code = 1038) 13.1 % NEUTROPHILS (test code = 1008) 60.0 % LYMPHOCYTES (test code = 1010) 28.0 % MONOCYTES (test code = 1011) 7.7 % EOSINOPHILS (test code = 1012) 2.2 % BASOPHILS (test code = 1013) 0.7 % IMMATURE GRANULOCYTES (test 1.4 % code = 1036) NUCLEATED RBCS (test code = 0.0 /100WBC'S 1065) PLATELET COUNT (test code = 197 K/UL 1015) ABSOLUTE NEUTROPHILS (test code 4.34 K/UL = 1066) ABSOLUTE LYMPHOCYTES (test code 2.03 K/UL = 1067) ABSOLUTE MONOCYTES (test code = 0.56 K/UL 1068) ABSOLUTE EOSINOPHILS (test code 0.16 K/UL = 1040) ABSOLUTE BASOPHILS (test code = 0.05 K/UL 1069) ABS IMMATURE GRANULOCYTES (test 0.10 K/UL code = 1020) ABS NUCLEATED RBCS (test code = 0.00 K/UL 65026) CBC W/AUTO [id number] 00:00:00 Test Item Value Reference Range Interpretation Comments WBC (test code = 1001) 7.2 K/UL RBC (test code = 1002) 4.46 M/UL HEMOGLOBIN (test code = 1003) 14.2 G/DL HEMATOCRIT (test code = 1004) 40.8 % MCV (test code = 1005) 91.5 fL MCH (test code = 1006) 31.8 PG MCHC (test code = 1007) 34.8 G/DL RDW (test code = 1038) 13.1 % NEUTROPHILS (test code = 1008) 60.0 % LYMPHOCYTES (test code = 1010) 28.0 % MONOCYTES (test code = 1011) 7.7 % EOSINOPHILS (test code = 1012) 2.2 % BASOPHILS (test code = 1013) 0.7 % IMMATURE GRANULOCYTES (test 1.4 % code = 1036) NUCLEATED RBCS (test code = 0.0 /100WBC'S 1065) PLATELET COUNT (test code = 197 K/UL 1015) ABSOLUTE NEUTROPHILS (test code 4.34 K/UL = 1066) ABSOLUTE LYMPHOCYTES (test code 2.03 K/UL = 1067) ABSOLUTE MONOCYTES (test code = 0.56 K/UL 1068) ABSOLUTE EOSINOPHILS (test code 0.16 K/UL = 1040) ABSOLUTE BASOPHILS (test code = 0.05 K/UL 1069) ABS IMMATURE GRANULOCYTES (test 0.10 K/UL code = 1020) ABS NUCLEATED RBCS (test code = 0.00 K/UL 81846) HEMOGLOBIN [id number] 00:00:00 Test Item Value Reference Range Interpretation Comments HEMOGLOBIN A1c (test code = 79427) 5.5 % HEMOGLOBIN [id number] 00:00:00 Test Item Value Reference Range Interpretation Comments HEMOGLOBIN A1c (test code = 99506) 5.5 % HEMOGLOBIN [id number] 00:00:00 Test Item Value Reference Range Interpretation Comments HEMOGLOBIN A1c (test code = 11318) 5.5 % LIPID [id number] 00:00:00 Test Item Value Reference Range Interpretation Comments CHOLESTEROL (test code = 2210) 246 MG/DL TRIGLYCERIDES (test code = 2232) 347 MG/DL HDL CHOLESTEROL (test code = 2220) 47 MG/DL CALC LDL CHOL (test code = 2237) 146 MG/DL RISK RATIO LDL/HDL (test code = 3.11 RATIO 2238) LIPID [id number] 00:00:00 Test Item Value Reference Range Interpretation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 RATIO (test code = 2.0 RATIO 2234) BILIRUBIN, TOTAL (test code = 0.3 MG/DL 2206) ALKALINE PHOSPHATASE (test 70 U/L code = 2204) AST (test code = 2218) 21 U/L ALT (test code = 2219) 24 U/L LIPID [id number] 00:00:00 Test Item Value Reference Range Interpretation Comments CHOLESTEROL (test code = 2210) 227 MG/DL TRIGLYCERIDES (test code = 2232) 164 MG/DL HDL CHOLESTEROL (test code = 2220) 42 MG/DL CALC LDL CHOL (test code = 2237) 155 MG/DL RISK RATIO LDL/HDL (test code = 3.69 RATIO 2238) LIPID [id number] 00:00:00 Test Item Value Reference Range Interpretation Comments CHOLESTEROL (test code = 2210) 227 MG/DL TRIGLYCERIDES (test code = 2232) 164 MG/DL HDL CHOLESTEROL (test code = 2220) 42 MG/DL CALC LDL CHOL (test code = 2237) 155 MG/DL RISK RATIO LDL/HDL (test code = 3.69 RATIO 2238) CBC W/AUTO [id number] 00:00:00 Test Item Value Reference Range Interpretation Comments WBC (test code = 1001) 5.9 K/UL RBC (test code = 1002) 4.09 M/UL HEMOGLOBIN (test code = 1003) 12.9 G/DL HEMATOCRIT (test code = 1004) 36.9 % MCV (test code = 1005) 90.2 fL MCH (test code = 1006) 31.5 PG MCHC (test code = 1007) 35.0 G/DL RDW (test code = 1038) 12.7 % NEUTROPHILS (test code = 1008) 59.2 % LYMPHOCYTES (test code = 1010) 29.7 % MONOCYTES (test code = 1011) 8.4 % EOSINOPHILS (test code = 1012) 2.2 % BASOPHILS (test code = 1013) 0.5 % PLATELET COUNT (test code = 1015) 235 K/UL CBC W/AUTO [id number] 00:00:00 Test Item Value Reference Range Interpretation Comments WBC (test code = 1001) 5.9 K/UL RBC (test code = 1002) 4.09 M/UL HEMOGLOBIN (test code = 1003) 12.9 G/DL HEMATOCRIT (test code = 1004) 36.9 % MCV (test code = 1005) 90.2 fL MCH (test code = 1006) 31.5 PG MCHC (test code = 1007) 35.0 G/DL RDW (test code = 1038) 12.7 % NEUTROPHILS (test code = 1008) 59.2 % LYMPHOCYTES (test code = 1010) 29.7 % MONOCYTES (test code = 1011) 8.4 % EOSINOPHILS (test code = 1012) 2.2 % BASOPHILS (test code = 1013) 0.5 % PLATELET COUNT (test code = 1015) 235 K/UL CBC W/AUTO [id number] 00:00:00 Test Item Value Reference Range Interpretation Comments WBC (test code = 1001) 5.9 K/UL RBC (test code = 1002) 4.09 M/UL HEMOGLOBIN (test code = 1003) 12.9 G/DL HEMATOCRIT (test code = 1004) 36.9 % MCV (test code = 1005) 90.2 fL MCH (test code = 1006) 31.5 PG MCHC (test code = 1007) 35.0 G/DL RDW (test code = 1038) 12.7 % NEUTROPHILS (test code = 1008) 59.2 % LYMPHOCYTES (test code = 1010) 29.7 % MONOCYTES (test code = 1011) 8.4 % EOSINOPHILS (test code = 1012) 2.2 % BASOPHILS (test code = 1013) 0.5 % PLATELET COUNT (test code = 1015) 235 K/UL COMPREHENSIVE METABOLIC [id number] 00:00:00 Test Item Value Reference Range Interpretation Comments GLUCOSE (test code = 2217) 147 MG/DL BUN (test code = 2208) 13 MG/DL CREATININE (test code = 2214) 0.64 MG/DL eGFR AMER. (test code 145 ML/MIN/1.73 = 75421) eGFR NON- AMER. (test 125 ML/MIN/1.73 code = 41295) CALC BUN/CREAT (test code = 20 RATIO 2235) SODIUM (test code = 2231) 141 MEQ/L POTASSIUM (test code = 2228) 4.3 MEQ/L CHLORIDE (test code = 2215) 105 MEQ/L CARBON DIOXIDE (test code = 24 MEQ/L 220) CALCIUM (test code = 2209) 9.1 MG/DL PROTEIN, TOTAL (test code = 6.8 G/DL 2228) ALBUMIN (test code = 2201) 4.5 G/DL CALC GLOBULIN (test code = 2.3 G/DL 2240) CALC A/G RATIO (test code = 2.0 RATIO 2234) BILIRUBIN, TOTAL (test code = 0.3 MG/DL 2207) ALKALINE PHOSPHATASE (test 70 U/L code = 2204) AST (test code = 2218) 21 U/L ALT (test code = 2219) 24 U/L COMPREHENSIVE METABOLIC [id number] 00:00:00 Test Item Value Reference Range Interpretation Comments GLUCOSE (test code = 2217) 147 MG/DL BUN (test code = 2208) 13 MG/DL CREATININE (test code = 2214) 0.64 MG/DL eGFR AMER. (test code 145 ML/MIN/1.73 = 38312) eGFR NON- AMER. (test 125 ML/MIN/1.73 code = 71286) CALC BUN/CREAT (test code = 20 RATIO 2235) SODIUM (test code = 2231) 141 MEQ/L POTASSIUM (test code = 2228) 4.3 MEQ/L CHLORIDE (test code = 2215) 105 MEQ/L CARBON DIOXIDE (test code = 24 MEQ/L 220) CALCIUM (test code = 2209) 9.1 MG/DL PROTEIN, TOTAL (test code = 6.8 G/DL 2228) ALBUMIN (test code = 2201) 4.5 G/DL CALC GLOBULIN (test code = 2.3 G/DL 2240) CALC A/G RATIO (test code = 2.0 RATIO 2234) BILIRUBIN, TOTAL (test code = 0.3 MG/DL 2206) ALKALINE PHOSPHATASE (test 70 U/L code = 2204) AST (test code = 2218) 21 U/L ALT (test code = 2219) 24 U/L COMPREHENSIVE METABOLIC [id number] 00:00:00 Test Item Value Reference Range Interpretation Comments GLUCOSE (test code = 2217) 147 MG/DL BUN (test code = 2208) 13 MG/DL CREATININE (test code = 2214) 0.64 MG/DL eGFR AMER. (test code 145 ML/MIN/1.73 = 18800) eGFR NON- AMER. (test 125 ML/MIN/1.73 code = 23845) CALC BUN/CREAT (test code = 20 RATIO 2235) SODIUM (test code = 2231) 141 MEQ/L POTASSIUM (test code = 2228) 4.3 MEQ/L CHLORIDE (test code = 2215) 105 MEQ/L CARBON DIOXIDE (test code = 24 MEQ/L 2206) CALCIUM (test code = 2209) 9.1 MG/DL PROTEIN, TOTAL (test code = 6.8 G/DL 2228) ALBUMIN (test code = 2201) 4.5 G/DL CALC GLOBULIN (test code = 2.3 G/DL 2239) CALC A/G RATIO (test code = 2.0 RATIO 2234) BILIRUBIN, TOTAL (test code = 0.3 MG/DL 2206) ALKALINE PHOSPHATASE (test 70 U/L code = 2204) AST (test code = 2218) 21 U/L ALT (test code = 2219) 24 U/L LIPID [id number] 00:00:00 Test Item Value Reference Range Interpretation Comments CHOLESTEROL (test code = 2210) 227 MG/DL TRIGLYCERIDES (test code = 2232) 164 MG/DL HDL CHOLESTEROL (test code = 2220) 42 MG/DL CALC LDL CHOL (test code = 2237) 155 MG/DL RISK RATIO LDL/HDL (test code = 3.69 RATIO 2238) LIPID [id number] 00:00:00 Test Item Value Reference Range Interpretation Comments CHOLESTEROL (test code = 2210) 227 MG/DL TRIGLYCERIDES (test code = 2232) 164 MG/DL HDL CHOLESTEROL (test code = 2220) 42 MG/DL CALC LDL CHOL (test code = 2237) 155 MG/DL RISK RATIO LDL/HDL (test code = 3.69 RATIO 2238) CBC W/AUTO [id number] 00:00:00 Test Item Value Reference Range Interpretation Comments WBC (test code = 1001) 5.9 K/UL RBC (test code = 1002) 4.09 M/UL HEMOGLOBIN (test code = 1003) 12.9 G/DL HEMATOCRIT (test code = 1004) 36.9 % MCV (test code = 1005) 90.2 fL MCH (test code = 1006) 31.5 PG MCHC (test code = 1007) 35.0 G/DL RDW (test code = 1038) 12.7 % NEUTROPHILS (test code = 1008) 59.2 % LYMPHOCYTES (test code = 1010) 29.7 % MONOCYTES (test code = 1011) 8.4 % EOSINOPHILS (test code = 1012) 2.2 % BASOPHILS (test code = 1013) 0.5 % PLATELET COUNT (test code = 1015) 235 K/UL CBC W/AUTO [id number] 00:00:00 Test Item Value Reference Range Interpretation Comments WBC (test code = 1001) 5.9 K/UL RBC (test code = 1002) 4.09 M/UL HEMOGLOBIN (test code = 1003) 12.9 G/DL HEMATOCRIT (test code = 1004) 36.9 % MCV (test code = 1005) 90.2 fL MCH (test code = 1006) 31.5 PG MCHC (test code = 1007) 35.0 G/DL RDW (test code = 1038) 12.7 % NEUTROPHILS (test code = 1008) 59.2 % LYMPHOCYTES (test code = 1010) 29.7 % MONOCYTES (test code = 1011) 8.4 % EOSINOPHILS (test code = 1012) 2.2 % BASOPHILS (test code = 1013) 0.5 % PLATELET COUNT (test code = 1015) 235 K/UL CBC W/AUTO [id number] 00:00:00 Test Item Value Reference Range Interpretation Comments WBC (test code = 1001) 5.9 K/UL RBC (test code = 1002) 4.09 M/UL HEMOGLOBIN (test code = 1003) 12.9 G/DL HEMATOCRIT (test code = 1004) 36.9 % MCV (test code = 1005) 90.2 fL MCH (test code = 1006) 31.5 PG MCHC (test code = 1007) 35.0 G/DL RDW (test code = 1038) 12.7 % NEUTROPHILS (test code = 1008) 59.2 % LYMPHOCYTES (test code = 1010) 29.7 % MONOCYTES (test code = 1011) 8.4 % EOSINOPHILS (test code = 1012) 2.2 % BASOPHILS (test code = 1013) 0.5 % PLATELET COUNT (test code = 1015) 235 K/UL LIPID [id number] 00:00:00 Test Item Value Reference Range Interpretation Comments CHOLESTEROL (test code = 2210) 227 MG/DL TRIGLYCERIDES (test code = 2232) 164 MG/DL HDL CHOLESTEROL (test code = 2220) 42 MG/DL CALC LDL CHOL (test code = 2237) 155 MG/DL RISK RATIO LDL/HDL (test code = 3.69 RATIO 2238) CBC W/AUTO [id number] 00:00:00 Test Item Value Reference Range Interpretation Comments WBC (test code = 1001) 5.9 K/UL RBC (test code = 1002) 4.09 M/UL HEMOGLOBIN (test code = 1003) 12.9 G/DL HEMATOCRIT (test code = 1004) 36.9 % MCV (test code = 1005) 90.2 fL MCH (test code = 1006) 31.5 PG MCHC (test code = 1007) 35.0 G/DL RDW (test code = 1038) 12.7 % NEUTROPHILS (test code = 1008) 59.2 % LYMPHOCYTES (test code = 1010) 29.7 % MONOCYTES (test code = 1011) 8.4 % EOSINOPHILS (test code = 1012) 2.2 % BASOPHILS (test code = 1013) 0.5 % PLATELET COUNT (test code = 1015) 235 K/UL CBC W/AUTO [id number] 00:00:00 Test Item Value Reference Range Interpretation Comments WBC (test code = 1001) 5.9 K/UL RBC (test code = 1002) 4.09 M/UL HEMOGLOBIN (test code = 1003) 12.9 G/DL HEMATOCRIT (test code = 1004) 36.9 % MCV (test code = 1005) 90.2 fL MCH (test code = 1006) 31.5 PG MCHC (test code = 1007) 35.0 G/DL RDW (test code = 1038) 12.7 % NEUTROPHILS (test code = 1008) 59.2 % LYMPHOCYTES (test code = 1010) 29.7 % MONOCYTES (test code = 1011) 8.4 % EOSINOPHILS (test code = 1012) 2.2 % BASOPHILS (test code = 1013) 0.5 % PLATELET COUNT (test code = 1015) 235 K/UL CT ABDOMEN PELVIS W [id number] 23:59:14 No acute intra-abdominal or pelvic process. Severe hepatic steatosis. Small vessels in periesophageal distribution may represent small varices. 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 Preliminary Report Dictated by Resident: Jared De Guzman MD., have reviewed this study and agree with theabove report.EXAM: CT ABDOMEN/PELVIS WITH CONTRAST HISTORY: ?Abd distension Nausea, vomiting ? COMPARISON: Ultrasound 06/23/2020. TECHNIQUE AND FINDINGS: Contiguous axial imaging from the level of the lungbases through the proximal thighs was performed after the administration ofintravenous Omnipaque contrast. Coronal and sagittal reconstructions wereobtained. Auto mAand/or iterative reconstruction were used to reduceradiation dose. FINDINGS: LOWER THORAX: The lungsbases are clear. LIVER: Diffusely hypoattenuating liver parenchyma, sparing the gallbladderfossa. Nohepatomegaly. No focal hepatic lesion identified. GALLBLADDER AND BILIARY TREE: No biliary ductal dilation. ?No gallbladderwall thickening. No radiopaque cholelithiasis. SPLEEN: No splenomegaly. PANCREAS: No ductal dilation or masses. ADRENAL GLANDS: No adrenal nodules. KIDNEYS: No hydronephrosis, stones or masses. PERITONEUM AND RETROPERITONEUM: No free air or fluid. LYMPH NODES: No lymphadenopathy.GI TRACT: No dilation or abnormal wall thickening. Appendix is normal. PELVIS/BLADDER: Urinary bladder wall thickening commensurate with degree ofdistention. VESSELS: Mild atherosclerotic calcifications affect the infrarenalabdominal aorta. Patent abdominal vasculature. Mild periesophageal varices. BONES AND SOFT TISSUES: No suspicious lytic or sclerotic bony lesions. Noacute fracture or subluxation.Evidence of avascular necrosis within theright hip without subchondral collapse. Small fat-containing bilateral inguinal hernia, left larger than right. [facility], Radiant Results Inft User - 06/28/2020 7:00 PM CDTEXAM: CT ABDOMEN/PELVIS WITH CONTRASTHISTORY: Abd distension Nausea, vomiting COMPARISON: Ultrasound 06/23/2020.TECHNIQUE AND FINDINGS: Contiguous axial imaging from the level of the lungbases through the proximal thighs was performed after the administration ofintravenous Omnipaque contrast. Coronal and sagittal reconstructions wereobtained. Auto mA and/or iterative reconstruction were used to r educeradiation dose.FINDINGS:LOWER THORAX: The lungs bases are clear. LIVER: Diffusely hypoattenuating liver parenchyma, sparing the gallbladderfossa. No hepatomegaly. No focal hepatic lesion identified.GALLBLADDER AND BILIARY TREE: No biliary ductal dilation. No gallbladderwall thickening. No radiopaque cholelithiasis.SPLEEN: No splenomegaly.PANCREAS: No ductal dilation or masses.ADRENAL GLANDS: No adrenal nodules.KIDNEYS: No hydronephrosis, stones or masses.PERITONEUM AND RETROPERITONEUM: No free air or fluid.LYMPH NODES: No lymphadenopathy.GI TRACT: No dilation or abnormal wall thickening. Appendix is normal.PELVIS/BLADDER: Urinary bladder wall thickening commensurate with degree ofdistention. VESSELS: Mild atherosclerotic calcifications affect the infrarenalabdominal aorta. Patent abdominal vasculature. Mild periesophageal varices.BONES AND SOFT TISSUES: No suspicious lytic or sclerotic bonylesions. Noacute fracture or subluxation. Evidence of avascular necrosis within theright hip withoutsubchondral collapse.Small fat-containing bilateral inguinal hernia, left larger than right. IMPRESSIONNo acute intra-abdominal or pelvic process.Severe hepatic steatosis.Small vessels in periesophageal distribution may represent small varices.Avascular necrosis of the right hip without subchondral collapse.Preliminary Report Dictated by Resident: Jared Rodríguez MD., have reviewed this study and agree with theabove report. [facility] Test Item Value Reference Range Interpretation Comments APPEARANCE (test code = Clear Clear 7776136263) COLOR (test code = Yellow Yellow 8901589026) PH (test code = 4.8-8.0 7564680934) SP GRAVITY (test code = 1.003-1.030 3140234555) GLU U QUAL (test code = Normal Normal 2610538886) BLOOD (test code = Negative Negative INTERFERE NCE FROM 7054464536) ASCORBIC ACID M AY CAUSE FALSE NEG ATIVE RESULT KETONES (test code = Negative Negative 1093830571) PROTEIN (test code = Negative Negative 2887-8) UROBILIN (test code = Normal Normal 8613496268) BILIRUBIN (test code = Negative Negative 8237770822) NITRITE (test code = Negative Negative 4900030877) LEUK ARON (test code = Negative Negative 7247102679) RBC/HPF (test code = See_Comment [Autom ated message] 6251527304) The system [employer] generated this result transmitted ref erence range: 0 - 3 HP F. The reference range was not used to int erpret this result as normal/abnormal . WBC/HPF (test code = <1 See_Comment [Autom ated message] 4264865585) The system [employer] generated this result transmitted ref erence range: 0 - 5 HP F. The reference range was not used to int erpret this result as normal/abnormal . BACTERIA (test code = Few Negative A 7115862844) MUCOUS (test code = Slight Negative LPF A 1301929625) Lab Interpretation (test Abnormal code = 05665-1) [facility] (00623)2020-06-28 21:46:00 Test Item Value Reference Range Interpretation Comments NA (test code = 136 mmol/L 135-145 0091899050) K (test code = 4.3 mmol/L 3.5-5 5537215376) CL (test code = 104 mmol/L 98-108 3649846552) CO2 TOTAL (test code = 23 mmol/L 23-31 8753826765) AGAP (test code = 2-16 6894344572) BUN (test code = 13 mg/dL 7-23 3844641097) GLUCOSE (test code = 99 mg/dL 70-110 0819025973) CREATININE (test code = 0.61 mg/dL 0.6-1.25 3156006719) TOTAL BILI (test code = 0.9 mg/dL 0.1-1.4 6918442156) CALCIUM (test code = 9.3 mg/dL 8.6-10.6 7562207058) T PROTEIN (test code = 8.0 g/dL 6.3-8.2 1821998626) ALBUMIN (test code = 4.8 g/dL 3.5-5 6757830203) ALK PHOS (test code = 60 U/L 34-122 1820332152) ALTv (test code = 372 U/L 5-50 H 1742-6) AST(SGOT) (test code = 202 U/L 13-40 H 6461811860) eGFR Calculation mL/min/1.73m2 (Non-) (test code = 0107758828) eGFR Calculation mL/min/1.73m2 () (test code = 3775125165) LILLIE (test code = LILLIE) Association of Glomerular Filtration Rate (GFR) and Staging of Kidney Disease* + --+ --+ ------+| GFR (mL/min/1.73 m2) ?| With Kidney Damage ?| ?Without Kidney Damage+ --------+ --------+ +| ?>90 ?| ?Stage one ?| ? Normal ?+ ---+ ---+ -------+| ?60-89 ?| ?Stage two ?| ? Decreased GFR ? + --+ --+ ------+| ?30-59 ?| ?Stage three ?| ? Stage three ? + --+ --+ ------+| ?15-29 ?| ?Stage four ? | ? Stage four ?+ ---+ ---+ -------+| ?<15 (or dialysis) ? ?| ?Stage five ? | ? Stage five ?+ ---+ ---+ -------+ *Each stage assumes the associated GFR level has been in effect for at least three months. ?Stages 1 to 5, with or without kidney disease, indicate chronic kidney disease. Notes: Determination of stages one and two (with eGFR >59mL/min/1.73 m2) requires estimation of kidney damage for at least three months as defined by structural or functional abnormalities of the kidney, manifested by either:Pathological abnormalities or Markers of kidney damage (including abnormalities in the composition of the blood or urine or abnormalities in imaging tests). Lab Interpretation Abnormal (test code = 60204-3) [facility] 21:46:00 Test Item Value Reference Range Interpretation Comments LIPASE (test code = 0843649635) 63 U/L 0-220 Lab Interpretation (test code = Normal 98088-3) [facility] WITH [id number] 21:34:00 Test Item Value Reference Range Interpretation Comments WBC (test code = See_Comment [Automated 8551-2) message] The sy stem which generated this result transmitted reference range : 4.20 - 10.70 10*3/?L. The reference range was not used to interpret this result as normal/abnormal . RBC (test code = See_Comment L [Automated 257-8) message] The sy stem which generated this result transmitted reference range : 4.26 - 5.52 10*6/?L. The reference range was not used to interpret this result as normal/abnormal . HGB (test code = 13.2 g/dL 12.2-16.4 718-7) HCT (test code = 36.5 % 38.4-49.3 L 4544-3) MCV (test code = 89.7 fL 81.7-95.6 787-2) MCH (test code = 32.4 pg 26.1-32.7 785-6) MCHC (test code = 36.2 g/dL 31.2-35 H 786-4) RDW-SD (test code = 39.6 fL 38.5-51.6 80107-1) RDW-CV (test code = 12.1 % 12.1-15.4 788-0) PLT (test code = See_Comment [Automated 777-3) message] The sy stem which generated this result transmitted reference range : 150 - 328 10*3/ ?L. The reference r betzy was not used to interpret this result as normal/abnormal . MPV (test code = 9.0 fL 9.8-13 L 17974-5) NRBC/100 WBC (test See_Comment [Automat ed code = 2779064920) message] The system which generated this result transmitted reference range : 0.0 - 10.0 /100 WBCs. The refer ence range was not u sed to interpret th is result as normal/abnormal . NRBC x10^3 (test code <0.01 See_Comment [Auto mated = 6927816181) message] The s ystem which generated this result transmitted reference range : 10*3/?L. The reference range was not used to interpret this result as normal/abnormal . GRAN MAT (NEUT) % 58.4 % (test code = 770-8) IMM GRAN % (test code 0.50 % = 5982796224) LYMPH % (test code = 25.0 % 736-9) MONO % (test code = 12.3 % 5905-5) EOS % (test code = 3.3 % 713-8) BASO % (test code = 0.5 % 706-2) GRAN MAT x10^3(ANC) 3.84 10*3/uL 1.99-6.95 (test code = 0542860181) IMM GRAN x10^3 (test 0.03 10*3/uL 0-0.06 code = 5069594384) LYMPH x10^3 (test code 1.64 10*3/uL 1.09-3.23 = 731-0) MONO x10^3 (test code 0.81 10*3/uL 0.36-1.02 = 742-7) EOS x10^3 (test code = 0.22 10*3/uL 0.06-0.53 711-2) BASO x10^3 (test code 0.03 10*3/uL 0.01-0.09 = 704-7) Lab Interpretation Abnormal (test code = 73750-1) [id number]2020-06-24 10:12:00 Test Item Value Reference Range Interpretation Comments NA (test code = 139 mmol/L 135-145 6939437889) K (test code = 4.0 mmol/L 3.5-5 3011594067) CL (test code = 110 mmol/L 98-108 H 5718928283) CO2 TOTAL (test code = 22 mmol/L 23-31 L 4330625627) AGAP (test code = 2-16 1641845819) BUN (test code = 10 mg/dL 7-23 8676026207) GLUCOSE (test code = 104 mg/dL 70-110 6308607732) CREATININE (test code = 0.65 mg/dL 0.6-1.25 8058362806) TOTAL BILI (test code = 0.9 mg/dL 0.1-1.3 5342204340) CALCIUM (test code = 9.2 mg/dL 8.6-10.6 5728813876) T PROTEIN (test code = 6.9 g/dL 6.3-8.2 6716271719) ALBUMIN (test code = 4.1 g/dL 3.5-5 6220267826) ALK PHOS (test code = 66 U/L 34-122 2248596198) ALTv (test code = 195 U/L 5-50 H 1742-6) AST(SGOT) (test code = 134 U/L 13-40 H 0787236813) eGFR Calculation mL/min/1.73m2 (Non-) (test code = 4380120063) eGFR Calculation mL/min/1.73m2 () (test code = 0554334374) LILLIE (test code = LILLIE) Association of Glomerular Filtration Rate (GFR) and Staging of Kidney Disease* + --+ --+ ------+| GFR (mL/min/1.73 m2) ?| With Kidney Damage ?| ?Without Kidney Damage+ --------+ --------+ +| ?>90 ?| ?Stage one ?| ? Normal ?+ ---+ ---+ -------+| ?60-89 ?| ?Stage two ?| ? Decreased GFR ? + --+ --+ ------+| ?30-59 ?| ?Stage three ?| ? Stage three ? + --+ --+ ------+| ?15-29 ?| ?Stage four ? | ? Stage four ?+ ---+ ---+ -------+| ?<15 (or dialysis) ? ?| ?Stage five ? | ? Stage five ?+ ---+ ---+ -------+ *Each stage assumes the associated GFR level has been in effect for at least three months. ?Stages 1 to 5, with or without kidney disease, indicate chronic kidney disease. Notes: Determination of stages one and two (with eGFR >59mL/min/1.73 m2) requires estimation of kidney damage for at least three months as defined by structural or functional abnormalities of the kidney, manifested by either:Pathological abnormalities or Markers of kidney damage (including abnormalities in the composition of the blood or urine or abnormalities in imaging tests). Lab Interpretation Abnormal (test code = 31752-0) [facility] ABDOMEN [id number] 01:37:33 1. ?Hyperechoic and mild coarse hepatic echotexture, nonspecific, and maybe seen with hepatocellular disease, including steatosis. No focal hepaticlesions identified. Preliminary Report Dictated by Resident: Lisa Cook MD., have reviewed this study and agree with the abovereport. LIMITED ABDOMINAL ULTRASOUND HISTORY: Evaluate for cirrhosis COMPARISON: None. FINDINGS: LIVER: Theliver is diffusely hyperechoic, with mildly coarse echotexture,normal in size and contour, measures 16.3 cm. No focal hepatic lesion. Normal hepatopetal ?flow within the main portal vein. The main portal veinmeasures 1.2 cm. GALLBLADDER: No cholelithiasis, pericholecystic fluid, or gallbladderdistention. The gallbladder wall measures 0.3 cm. No sonographic Zhu'ssign. The common bile duct measures 0.5 cm. PANCREAS: Incompletely visualized due to overlying bowel gas. RIGHT KIDNEY: The visualized portion of the right kidney is unremarkable. The supra renal abdominal aorta measures 2.3 cm in AP diameter. [facility], Radiant Results Inft User - 06/23/2020 8:38 PM CDTLIMITED ABDOMINAL ULTRASOUND HISTORY: Evaluate for cirrhosis COMPARISON: None. FINDINGS: LIVER: The liver is diffusely hyperechoic, with mildly coarse echotexture,normal in size and contour, measures 16.3 cm. No focal hepatic lesion. Normal hepatopetal flow within the main portal vein. The main portal veinmeasures 1.2 cm.GALLBLADDER: No cholelithiasis, pericholecystic fluid, or gallbladderdistention. The gallbladder wall measures 0.3 cm. No sonographic Zhu'ssign. The common bile duct measures 0.5 cm.PANCREAS: Incompletely visualized due to overlying bowel gas.RIGHT KIDNEY: The visualized portion of the right kidney is unremarkable.Thesupra renal abdominal aorta measures 2.3 cm in AP diameter.IMPRESSION 1. Hyperechoic and mild coarsehepatic echotexture, nonspecific, and maybe seen with hepatocellular disease, including steatosis. No focal hepaticlesions identified.Preliminary Report Dictated by Resident: Foreign Johnston, Lisa Llanes MD., have reviewed this study and agree with the abovereport.[facility] / [facility] - DRUG SCREEN TRIAGE 2020-06-23 12:49:00 Test Item Value Reference Range Interpretation Comments BENZO U (test code = Presumptive Negative A 7106099072) Positive ANA MARIA U (test code = Negative Negative 6281400315) AMPHET (test code = Negative Negative 4522243568) THC (test code = Presumptive Negative A Confirmatio n of 6555233574) Positive Presumptive Positive THC result requires physician order . METHADONE (test code Negative Negative = 5563676611) Meth U (test code = Negative Negative 9219050126) OPIATES (test code = Negative Negative 5318731384) Cocaine Metabolite Negative Negative (test code = 1253501571) PROPOXY (test code = Negative Negative 8182209514) Tric U (test code = Negative Negative 2212375953) PCP (test code = Negative Negative 5347286696) OXYCOD (test code = Negative Negative 9151502197) LILLIE (test code = Urine Drug Cutoff LILLIE) Ranges Benzodiazepines: ? ? 150 ng/mLBarbiturates : ?200 ng/mLAmphetamine: ? 500 ng/mLCannabinoids : ?50 ?ng/mLMethadone: ? 200 ng/mLMethamphetam ine: ? ? 500 ng/mL Opiates: ? 100 ng/mL or 2000 ng/mLCocaine: ? 150 ng/mLPropoxyphene : ?300 ng/mLTricyclics: ?300 ng/mLOxycodone: ? 100 ng/mLPCP: ? 25 ?ng/mL The results are to be used only for medical (i.e., treatment) purposes. Unconfirmed screening results must not be used for non-medical purposes (e.g., employment testing, legal testing). Lab Interpretation Abnormal (test code = 38175-4) [facility] METABOLIC PANEL (NA, K, CL, CO2, GLUCOSE, BUN, CREATININE, CA)2020-06-23 11:37:00 Test Item Value Reference Range Interpretation Comments NA (test code = 139 mmol/L 135-145 4861102915) K (test code = 4.0 mmol/L 3.5-5 6181564667) CL (test code = 108 mmol/L 98-108 2725995069) CO2 TOTAL (test code = 25 mmol/L 23-31 0509308465) AGAP (test code = 2-16 7754300746) BUN (test code = 8 mg/dL 7-23 4587114668) GLUCOSE (test code = 105 mg/dL 70-110 1547701041) CREATININE (test code 0.65 mg/dL 0.6-1.25 = 2501157428) CALCIUM (test code = 8.7 mg/dL 8.6-10.6 0304264686) eGFR Calculation mL/min/1.73m2 (Non-) (test code = 2708041114) eGFR Calculation mL/min/1.73m2 () (test code = 2596399699) LILLIE (test code = LILLIE) Association of Glomerular Filtration Rate (GFR) and Staging of Kidney Disease* + -+ + ---+| GFR (mL/min/1.73 m2) ?| With Kidney Damage ?| ?Without Kidney Damage+ -------+ ------+ ---------+| ?>90 ?| ?Stage one ?| ? Normal ?+ --+ -+ ----+| ?60-89 ?| ?Stage two ?| ? Decreased GFR ? + -+ + ---+| ?30-59 ?| ?Stage three ?| ? Stage three ? + -+ + ---+| ?15-29 ?| ?Stage four ? | ? Stage four ?+ --+ -+ ----+| ?<15 (or dialysis) ? ?| ?Stage five ? | ? Stage five ?+ --+ -+ ----+ *Each stage assumes the associated GFR level has been in effect for at least three months. ?Stages 1 to 5, with or without kidney disease, indicate chronic kidney disease. Notes: Determination of stages one and two (with eGFR >59mL/min/1.73 m2) requires estimation of kidney damage for at least three months as defined by structural or functional abnormalities of the kidney, manifested by either:Pathological abnormalities or Markers of kidney damage (including abnormalities in the composition of the blood or urine or abnormalities in imaging tests). [facility] Test Item Value Reference Range Interpretation Comments MAGNESIUM (test code = 9861025148) 1.9 mg/dL 1.7-2.4 Lab Interpretation (test code = Normal 07692-8) [facility] [address] [id number] 01:36:48 No acute cardiopulmonary abnormality. Preliminary Report Dictated by Resident: Lisa Mendiola MD., have reviewed this study and agree with the abovereport.EXAM: XR CHEST 1 VW CLINICAL INDICATION: SOB COMPARISON: None FINDINGS: The lungs are well-expanded and clear without focal consolidation, pleuraleffusion, or pneumothorax. Mild pulmonary vascular congestion. The cardiac silhouette is normal in size. No acute osseous abnormality. [facility], Radiant Results Inft User - 06/22/2020 8:37 PM CDTEXAM: XR CHEST 1 VWCLINICAL INDICATION: SOB COMPARISON: NoneFINDINGS:The lungs are well-expanded andclear without focal consolidation, pleuraleffusion, or pneumothorax. Mild pulmonary vascular congestion.The cardiac silhouette is normal in size. No acute osseous abnormality. IMPRESSIONNo acute cardiopulmonary abnormality.Preliminary Report Dictated by Resident: Huy Oglesby, Lisa Llanes MD., have reviewed this study and agree with the abovereport.[facility] RAPID TESTING)2020-06-23 00:58:00 Test Item Value Reference Range Interpretation Comments SARS-CoV-2 Rapid ID NOW Not Detected Not Detected (test code = 36698-7) LILLIE (test code = LILLIE) ID NOW COVID-19 Assay is an isothermal nucleic acid amplification test intended for the qualitative detection of nucleic acid from SARS-CoV-2 viral RNA in nasopharyngeal (MANAGER OF PURCHASING) specimens. It is used under Emergency Use Authorization (EUA) by FDA. The limit of detection (LOD) of the assay is 125 Genome Equivalents/mL. A positive result is indicative of the presence of SARS-CoV-2 RNA. ?Clinical correlation with patient history and other diagnostic information is necessary to determine patient infection status. A negative (Not Detected) result does not preclude SARS-CoV-2 infection. In patients with clinical symptoms and other tests that are consistent with SARS-CoV-2 infection, negative results should be treated as presumptive negative and a new specimen should be tested with alternative PCR molecular test. Invalid: Please collect a new specimen for repeat patient testing if clinically indicated. Lab Interpretation Normal (test code = 89522-4) [facility] DallasN-TERMINAL [id number] 00:50:00 Test Item Value Reference Range Interpretation Comments NT-proBNP (test code <11 See_Comment [Autom ated = [id number]) message] The system which generated this result transmitted reference range : <=125 pg/mL. Th e reference range was not used to interpret this result as normal/abnormal . LILLIE (test code = LILLIE) Biotin has been reported to cause a negative bias, interpret results relative to patient's use of biotin. Lab Interpretation Normal (test code = 60908-4) [facility] DallasTroponin [id number] 23:46:00 Test Item Value Reference Range Interpretation Comments TROPONIN I (test <0.012 See_Comment [Automated code = 6972868812) message] The system which generated this result transmitted reference range : <=0.034 ng/mL. The reference range was not used to interpr et this result as normal/abnormal . LILLIE (test code = Equal or Less than LILLIE) 0.034 ng/ml---Normal ?Note: Cardiac troponin begins to rise 3-4 hours after the onset of ischemia. Repeat in 4-6 hours if the sample was drawn within 3-4 hours of the onset of the symptom and found normal. Between 0.035 and 0.120 ng/mL--- Borderline. Questionable myocardial injury or necrosis ? ?Note: Serial measurement may be necessary to confirm or exclude the diagnosis of myocardial injury or necrosis; Clinical correlation (symptoms, EKGs, imaging studies, and others) required; Repeat in 4-6 hours if clinically indicated. ? Equal or Higher than 0.121 ng/mL---Abnormal. Myocardial Injury or Necrosis Likely ? Biotin has been reported to cause a negative bias, interpret results relative to patient's use of biotin. ? Lab Interpretation Normal (test code = 82194-4) [facility] (NA, K, CL, CO2, GLUCOSE, BUN, CREATININE, CA)2020-06-22 23:35:00 Test Item Value Reference Range Interpretation Comments NA (test code = 141 mmol/L 135-145 0738107250) K (test code = 4.2 mmol/L 3.5-5 9944755386) CL (test code = 105 mmol/L 98-108 6094414122) CO2 TOTAL (test code = 23 mmol/L 23-31 6482657536) AGAP (test code = 2-16 5491671697) BUN (test code = 8 mg/dL 7-23 3278823082) GLUCOSE (test code = 114 mg/dL 70-110 H 8277348949) CREATININE (test code = 0.65 mg/dL 0.6-1.25 4928749604) CALCIUM (test code = 10.2 mg/dL 8.6-10.6 2694670852) eGFR Calculation mL/min/1.73m2 (Non-) (test code = 7104978899) eGFR Calculation mL/min/1.73m2 () (test code = 3344678107) LILLIE (test code = LILLIE) Association of Glomerular Filtration Rate (GFR) and Staging of Kidney Disease* + --+ --+ ------+| GFR (mL/min/1.73 m2) ?| With Kidney Damage ?| ?Without Kidney Damage+ --------+ --------+ +| ?>90 ?| ?Stage one ?| ? Normal ?+ ---+ ---+ -------+| ?60-89 ?| ?Stage two ?| ? Decreased GFR ? + --+ --+ ------+| ?30-59 ?| ?Stage three ?| ? Stage three ? + --+ --+ ------+| ?15-29 ?| ?Stage four ? | ? Stage four ?+ ---+ ---+ -------+| ?<15 (or dialysis) ? ?| ?Stage five ? | ? Stage five ?+ ---+ ---+ -------+ *Each stage assumes the associated GFR level has been in effect for at least three months. ?Stages 1 to 5, with or without kidney disease, indicate chronic kidney disease. Notes: Determination of stages one and two (with eGFR >59mL/min/1.73 m2) requires estimation of kidney damage for at least three months as defined by structural or functional abnormalities of the kidney, manifested by either:Pathological abnormalities or Markers of kidney damage (including abnormalities in the composition of the blood or urine or abnormalities in imaging tests). Lab Interpretation Abnormal (test code = 81271-4) [facility] DallasMAGN[facility]IUM2020-08-02 23:35:00 Test Item Value Reference Range Interpretation Comments MAGNESIUM (test code = 9094375846) 2.0 mg/dL 1.7-2.4 Lab Interpretation (test code = Normal 65003-5) [facility] DallasETHANOL2020-08-02 23:35:00 Test Item Value Reference Range Interpretation Comments ALCOHOL (test code = 13 mg/dL 5229447175) LILLIE (test code = LILLIE) <10 [id number] Toxic>100 Depression of FRUIT II FARMWORKER>400 Fatalities Reported [facility] DallasHepatic Function Panel (ALB, T.PRO, BILI T, BU/BC, ALT, AST, ALK PHOS)2020-06-22 23:34:00 Test Item Value Reference Range Interpretation Comments TOTAL BILI (test code = 9149997775) 0.7 mg/dL 0.1-1.1 BILI UNCON (test code = 8848111418) 0.7 mg/dL 0.1-1.1 BILI CONJ (test code = 3249066273) 0.0 mg/dL 0-0.3 T PROTEIN (test code = 9323822995) 9.1 g/dL 6.3-8.2 H ALBUMIN (test code = 5921971157) 5.2 g/dL 3.5-5 H ALK PHOS (test code = 8892405265) 93 U/L 34-122 ALTv (test code = 1742-6) 296 U/L 5-50 H AST(SGOT) (test code = 3942666036) 183 U/L 13-40 H Lab Interpretation (test code = Abnormal 50748-8) [facility] DallasPHOSPHORUS2020-08-02 23:34:00 Test Item Value Reference Range Interpretation Comments PHOSPHORUS (test code = 2663561610) 4.0 mg/dL 2.5-5 Lab Interpretation (test code = Normal 93891-7) [facility] DallasUrinalysis2020-08-02 23:28:00 Test Item Value Reference Range Interpretation Comments APPEARANCE (test code = Clear Clear 4104268937) COLOR (test code = Yellow Yellow 8337260537) PH (test code = 4.8-8.0 1651120127) SP GRAVITY (test code = 1.003-1.030 1694538830) GLU U QUAL (test code = Normal Normal 7107883884) BLOOD (test code = Negative Negative 7454039410) KETONES (test code = Negative Negative 4895764859) PROTEIN (test code = Negative Negative 2887-8) UROBILIN (test code = Normal Normal 2351023961) BILIRUBIN (test code = Negative Negative 3869424876) NITRITE (test code = Negative Negative 5513218659) LEUK ARON (test code = Negative Negative 4298600811) RBC/HPF (test code = <1 See_Comment [Autom ated message] 5965469878) The system [employer] generated this result transmitted ref erence range: 0 - 3 HP F. The reference range was not used to int erpret this result as normal/abnormal . WBC/HPF (test code = See_Comment [Autom ated message] 3369415994) The system [employer] generated this result transmitted ref erence range: 0 - 5 HP F. The reference range was not used to int erpret this result as normal/abnormal . BACTERIA (test code = Negative Negative 3416360571) MUCOUS (test code = Slight Negative LPF A 1893874207) HYAL CAST (test code = See_Comment [Aut omated message] 4757867977) The system [employer] h generated this result transmitted ref erence range: <=2 LPF. The reference range was not used to int erpret this result as normal/abnormal . Lab Interpretation (test Abnormal code = 66173-7) [facility] with [id number] 23:22:00 Test Item Value Reference Range Interpretation Comments WBC (test code = See_Comment [Automated 6690-2) message] The sy stem which generated this result transmitted reference range : 4.20 - 10.70 10*3/?L. The reference range was not used to interpret this result as normal/abnormal . RBC (test code = See_Comment [Automated 789-8) message] The sy stem which generated this result transmitted reference range : 4.26 - 5.52 10*6/?L. The reference range was not used to interpret this result as normal/abnormal . HGB (test code = 15.7 g/dL 12.2-16.4 718-7) HCT (test code = 44.4 % 38.4-49.3 4544-3) MCV (test code = 91.0 fL 81.7-95.6 787-2) MCH (test code = 32.2 pg 26.1-32.7 785-6) MCHC (test code = 35.4 g/dL 31.2-35 H 786-4) RDW-SD (test code = 40.5 fL 38.5-51.6 86065-2) RDW-CV (test code = 12.0 % 12.1-15.4 L 788-0) PLT (test code = See_Comment [Automated 777-3) message] The sy stem which generated this result transmitted reference range : 150 - 328 10*3/ ?L. The reference r betzy was not used to interpret this result as normal/abnormal . MPV (test code = 8.3 fL 9.8-13 L 55296-1) NRBC/100 WBC (test See_Comment [Automat ed code = 6603406436) message] The system which generated this result transmitted reference range : 0.0 - 10.0 /100 WBCs. The refer ence range was not u sed to interpret th is result as normal/abnormal . NRBC x10^3 (test code <0.01 See_Comment [Auto mated = 7554200094) message] The s ystem which generated this result transmitted reference range : 10*3/?L. The reference range was not used to interpret this result as normal/abnormal . GRAN MAT (NEUT) % 61.8 % (test code = 770-8) IMM GRAN % (test code 0.70 % = 6315209405) LYMPH % (test code = 23.5 % 736-9) MONO % (test code = 11.6 % 5905-5) EOS % (test code = 1.7 % 713-8) BASO % (test code = 0.7 % 706-2) GRAN MAT x10^3(ANC) 4.65 10*3/uL 1.99-6.95 (test code = 5757992938) IMM GRAN x10^3 (test 0.05 10*3/uL 0-0.06 code = 1250724001) LYMPH x10^3 (test code 1.77 10*3/uL 1.09-3.23 = 731-0) MONO x10^3 (test code 0.87 10*3/uL 0.36-1.02 = 742-7) EOS x10^3 (test code = 0.13 10*3/uL 0.06-0.53 711-2) BASO x10^3 (test code 0.05 10*3/uL 0.01-0.09 = 704-7) Lab Interpretation Abnormal (test code = 30851-6) [facility] DallasCOMPREHENSIVE METABOLIC PANEL [ADDED] 2020-06-11 00:00:00 Test Item Value Reference Range Interpretation Comments GLUCOSE (test code = 2217) 143 MG/DL BUN (test code = 2208) 9 MG/DL CREATININE (test code = 2214) 0.75 MG/DL eGFR AMER. (test code 137 ML/MIN/1.73 = 45890) eGFR NON- AMER. (test 118 ML/MIN/1.73 code = 76088) CALC BUN/CREAT (test code = 12 RATIO 2235) SODIUM (test code = 2231) 143 MEQ/L POTASSIUM (test code = 2228) 4.7 MEQ/L CHLORIDE (test code = 2215) 102 MEQ/L CARBON DIOXIDE (test code = 28 MEQ/L 2205) CALCIUM (test code = 2209) 9.7 MG/DL PROTEIN, TOTAL (test code = 7.3 G/DL 2228) ALBUMIN (test code = 2201) 4.7 G/DL CALC GLOBULIN (test code = 2.6 G/DL 2239) CALC A/G RATIO (test code = 1.8 RATIO 223) BILIRUBIN, TOTAL (test code = 0.3 MG/DL 2206) ALKALINE PHOSPHATASE (test 96 U/L code = 2204) AST (test code = 2218) 145 U/L ALT (test code = 2219) 196 U/L LIPID PANEL [ADDED]2020-06-11 00:00:00 Test Item Value Reference Range Interpretation Comments CHOLESTEROL (test code = 2210) 312 MG/DL TRIGLYCERIDES (test code = 2232) 209 MG/DL HDL CHOLESTEROL (test code = 2220) 53 MG/DL CALC LDL CHOL (test code = 2237) 220 MG/DL RISK RATIO LDL/HDL (test code = 4.15 RATIO 2238) COMPREHENSIVE METABOLIC PANEL [ADDED]2020-06-11 00:00:00 Test Item Value Reference Range Interpretation Comments GLUCOSE (test code = 2217) 143 MG/DL BUN (test code = 2208) 9 MG/DL CREATININE (test code = 2214) 0.75 MG/DL eGFR AMER. (test code 137 ML/MIN/1.73 = 64222) eGFR NON- AMER. (test 118 ML/MIN/1.73 code = 82111) CALC BUN/CREAT (test code = 12 RATIO 2235) SODIUM (test code = 2231) 143 MEQ/L POTASSIUM (test code = 2228) 4.7 MEQ/L CHLORIDE (test code = 2215) 102 MEQ/L CARBON DIOXIDE (test code = 28 MEQ/L 2205) CALCIUM (test code = 2209) 9.7 MG/DL PROTEIN, TOTAL (test code = 7.3 G/DL 2228) ALBUMIN (test code = 2201) 4.7 G/DL CALC GLOBULIN (test code = 2.6 G/DL 2240) CALC A/G RATIO (test code = 1.8 RATIO 2234) BILIRUBIN, TOTAL (test code = 0.3 MG/DL 220) ALKALINE PHOSPHATASE (test 96 U/L code = 2204) AST (test code = 2218) 145 U/L ALT (test code = 2219) 196 U/L COMPREHENSIVE METABOLIC PANEL [ADDED]2020-06-11 00:00:00 Test Item Value Reference Range Interpretation Comments GLUCOSE (test code = 2217) 143 MG/DL BUN (test code = 2208) 9 MG/DL CREATININE (test code = 2214) 0.75 MG/DL eGFR AMER. (test code 137 ML/MIN/1.73 = 54074) eGFR NON- AMER. (test 118 ML/MIN/1.73 code = 28537) CALC BUN/CREAT (test code = 12 RATIO 2235) SODIUM (test code = 2231) 143 MEQ/L POTASSIUM (test code = 2228) 4.7 MEQ/L CHLORIDE (test code = 2215) 102 MEQ/L CARBON DIOXIDE (test code = 28 MEQ/L 2205) CALCIUM (test code = 2209) 9.7 MG/DL PROTEIN, TOTAL (test code = 7.3 G/DL 2228) ALBUMIN (test code = 2201) 4.7 G/DL CALC GLOBULIN (test code = 2.6 G/DL 2240) CALC A/G RATIO (test code = 1.8 RATIO 2234) BILIRUBIN, TOTAL (test code = 0.3 MG/DL 2206) ALKALINE PHOSPHATASE (test 96 U/L code = 2204) AST (test code = 2218) 145 U/L ALT (test code = 2219) 196 U/L LIPID PANEL [ADDED]2020-06-11 00:00:00 Test Item Value Reference Range Interpretation Comments CHOLESTEROL (test code = 2210) 312 MG/DL TRIGLYCERIDES (test code = 2232) 209 MG/DL HDL CHOLESTEROL (test code = 2220) 53 MG/DL CALC LDL CHOL (test code = 2237) 220 MG/DL RISK RATIO LDL/HDL (test code = 4.15 RATIO 2238) LIPID PANEL [ADDED]2020-06-11 00:00:00 Test Item Value Reference Range Interpretation Comments CHOLESTEROL (test code = 2210) 312 MG/DL TRIGLYCERIDES (test code = 2232) 209 MG/DL HDL CHOLESTEROL (test code = 2220) 53 MG/DL CALC LDL CHOL (test code = 2237) 220 MG/DL RISK RATIO LDL/HDL (test code = 4.15 RATIO 2238) COMPREHENSIVE METABOLIC PANEL [ADDED]2020-06-11 00:00:00 Test Item Value Reference Range Interpretation Comments GLUCOSE (test code = 2217) 143 MG/DL BUN (test code = 2208) 9 MG/DL CREATININE (test code = 2214) 0.75 MG/DL eGFR AMER. (test code 137 ML/MIN/1.73 = 29610) eGFR NON- AMER. (test 118 ML/MIN/1.73 code = 84339) CALC BUN/CREAT (test code = 12 RATIO 2235) SODIUM (test code = 2231) 143 MEQ/L POTASSIUM (test code = 2228) 4.7 MEQ/L CHLORIDE (test code = 2215) 102 MEQ/L CARBON DIOXIDE (test code = 28 MEQ/L 2205) CALCIUM (test code = 2209) 9.7 MG/DL PROTEIN, TOTAL (test code = 7.3 G/DL 2228) ALBUMIN (test code = 2201) 4.7 G/DL CALC GLOBULIN (test code = 2.6 G/DL 2240) CALC A/G RATIO (test code = 1.8 RATIO 2234) BILIRUBIN, TOTAL (test code = 0.3 MG/DL 2206) ALKALINE PHOSPHATASE (test 96 U/L code = 2204) AST (test code = 2218) 145 U/L ALT (test code = 2219) 196 U/L COMPREHENSIVE METABOLIC PANEL [ADDED]2020-06-11 00:00:00 Test Item Value Reference Range Interpretation Comments GLUCOSE (test code = 2217) 143 MG/DL BUN (test code = 2208) 9 MG/DL CREATININE (test code = 2214) 0.75 MG/DL eGFR AMER. (test code 137 ML/MIN/1.73 = 39914) eGFR NON- AMER. (test 118 ML/MIN/1.73 code = 94930) CALC BUN/CREAT (test code = 12 RATIO 2235) SODIUM (test code = 2231) 143 MEQ/L POTASSIUM (test code = 2228) 4.7 MEQ/L CHLORIDE (test code = 2215) 102 MEQ/L CARBON DIOXIDE (test code = 28 MEQ/L 220) CALCIUM (test code = 2209) 9.7 MG/DL PROTEIN, TOTAL (test code = 7.3 G/DL 2228) ALBUMIN (test code = 2201) 4.7 G/DL CALC GLOBULIN (test code = 2.6 G/DL 2239) CALC A/G RATIO (test code = 1.8 RATIO 223) BILIRUBIN, TOTAL (test code = 0.3 MG/DL 2206) ALKALINE PHOSPHATASE (test 96 U/L code = 2204) AST (test code = 2218) 145 U/L ALT (test code = 2219) 196 U/L LIPID PANEL [ADDED]2020-06-11 00:00:00 Test Item Value Reference Range Interpretation Comments CHOLESTEROL (test code = 2210) 312 MG/DL TRIGLYCERIDES (test code = 2232) 209 MG/DL HDL CHOLESTEROL (test code = 2220) 53 MG/DL CALC LDL CHOL (test code = 2237) 220 MG/DL RISK RATIO LDL/HDL (test code = 4.15 RATIO 2238) COMPREHENSIVE METABOLIC PANEL [ADDED]2020-06-11 00:00:00 Test Item Value Reference Range Interpretation Comments GLUCOSE (test code = 2217) 143 MG/DL BUN (test code = 2208) 9 MG/DL CREATININE (test code = 2214) 0.75 MG/DL eGFR AMER. (test code 137 ML/MIN/1.73 = 99889) eGFR NON- AMER. (test 118 ML/MIN/1.73 code = 68328) CALC BUN/CREAT (test code = 12 RATIO 2235) SODIUM (test code = 2231) 143 MEQ/L POTASSIUM (test code = 2228) 4.7 MEQ/L CHLORIDE (test code = 2215) 102 MEQ/L CARBON DIOXIDE (test code = 28 MEQ/L 220) CALCIUM (test code = 2209) 9.7 MG/DL PROTEIN, TOTAL (test code = 7.3 G/DL 2228) ALBUMIN (test code = 2201) 4.7 G/DL CALC GLOBULIN (test code = 2.6 G/DL 2240) CALC A/G RATIO (test code = 1.8 RATIO 2234) BILIRUBIN, TOTAL (test code = 0.3 MG/DL 2206) ALKALINE PHOSPHATASE (test 96 U/L code = 2204) AST (test code = 2218) 145 U/L ALT (test code = 2219) 196 U/L LIPID PANEL [ADDED]2020-06-11 00:00:00 Test Item Value Reference Range Interpretation Comments CHOLESTEROL (test code = 2210) 312 MG/DL TRIGLYCERIDES (test code = 2232) 209 MG/DL HDL CHOLESTEROL (test code = 2220) 53 MG/DL CALC LDL CHOL (test code = 2237) 220 MG/DL RISK RATIO LDL/HDL (test code = 4.15 RATIO 2238) LIPID PANEL [ADDED]2020-06-11 00:00:00 Test Item Value Reference Range Interpretation Comments CHOLESTEROL (test code = 2210) 312 MG/DL TRIGLYCERIDES (test code = 2232) 209 MG/DL HDL CHOLESTEROL (test code = 2220) 53 MG/DL CALC LDL CHOL (test code = 2237) 220 MG/DL RISK RATIO LDL/HDL (test code = 4.15 RATIO 2238) HEPATITIS B SURFACE [id number] 18:36:00 Test Item Value Reference Range Interpretation Comments HBsAB (test code = Negative 4327136670) HBsAb mIU/mL Semi-Quantitative (test code = 3251843302) LILLIE (test code = Interpretation: LILLIE) ?Hepatitis B Surface Antibody ? Negative - Patient is considered to be not immune to infection with HBV. ? ? Positive - Anti-HBs detected at greater than or equal to 12 mIU/mL. ?Patient is considered to be immune to infection with HBV. ? [facility] [id number] 18:36:00 Test Item Value Reference Range Interpretation Comments HCV Ab (test code = 30504-0) Negative HCV Semi-Quantitative (test code = 20875-2) [facility]TIBODY (IGG AND IGM)2020-01-19 18:36:00 Test Item Value Reference Range Interpretation Comments HAV Total (test code = 0286148309) Negative HAVT Semi-Quantitative (test code = 6621559920) [facility] CORE ANTIBODY [id number] 18:23:00 Test Item Value Reference Range Interpretation Comments HBCM Negative Semi-Quantitative (test code = 28462-3) LILLIE (test code = Biotin has been reported LILLIE) to cause a negative bias, interpret results relative to patient's use of biotin. 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 METABOLIC PANEL (54277)2020-01-19 12:41:00 Test Item Value Reference Range Interpretation Comments NA (test code = 141 mmol/L 135-145 9876207075) K (test code = 3.8 mmol/L 3.5-5 8379263548) CL (test code = 108 mmol/L 98-108 9480812615) CO2 TOTAL (test code = 25 mmol/L 23-31 7764495964) AGAP (test code = 2-16 3157031110) BUN (test code = 12 mg/dL 7-23 9923702867) GLUCOSE (test code = 96 mg/dL 70-110 6793146156) CREATININE (test code = 0.52 mg/dL 0.6-1.25 L 0055886738) TOTAL BILI (test code = 0.6 mg/dL 0.1-1.2 1862261571) CALCIUM (test code = 8.7 mg/dL 8.6-10.6 0464420359) T PROTEIN (test code = 6.5 g/dL 6.3-8.2 3148713173) ALBUMIN (test code = 4.1 g/dL 3.5-5 4311083206) ALK PHOS (test code = 72 U/L 34-122 6295643282) ALTv (test code = 132 U/L 5-50 H 1742-6) AST(SGOT) (test code = 90 U/L 13-40 H 4776269318) eGFR Calculation mL/min/1.73m2 (Non-) (test code = 6930795132) eGFR Calculation mL/min/1.73m2 () (test code = 4340406641) LILLIE (test code = LILLIE) Association of Glomerular Filtration Rate (GFR) and Staging of Kidney Disease* + --+ --+ ------+| GFR (mL/min/1.73 m2) ?| With Kidney Damage ?| ?Without Kidney Damage+ --------+ --------+ +| ?>90 ?| ?Stage one ?| ? Normal ?+ ---+ ---+ -------+| ?60-89 ?| ?Stage two ?| ? Decreased GFR ? + --+ --+ ------+| ?30-59 ?| ?Stage three ?| ? Stage three ? + --+ --+ ------+| ?15-29 ?| ?Stage four ? | ? Stage four ?+ ---+ ---+ -------+| ?<15 (or dialysis) ? ?| ?Stage five ? | ? Stage five ?+ ---+ ---+ -------+ *Each stage assumes the associated GFR level has been in effect for at least three months. ?Stages 1 to 5, with or without kidney disease, indicate chronic kidney disease. Notes: Determination of stages one and two (with eGFR >59mL/min/1.73 m2) requires estimation of kidney damage for at least three months as defined by structural or functional abnormalities of the kidney, manifested by either:Pathological abnormalities or Markers of kidney damage (including abnormalities in the composition of the blood or urine or abnormalities in imaging tests). Lab Interpretation Abnormal (test code = 92111-8) [facility] WITH [id number] 11:42:00 Test Item Value Reference Range Interpretation Comments WBC (test code = See_Comment [Automated 8143-2) message] The sy stem which generated this result transmitted reference range : 4.20 - 10.70 10*3/?L. The reference range was not used to interpret this result as normal/abnormal . RBC (test code = See_Comment L [Automated 539-8) message] The sy stem which generated this result transmitted reference range : 4.26 - 5.52 10*6/?L. The reference range was not used to interpret this result as normal/abnormal . HGB (test code = 11.8 g/dL 12.2-16.4 L 718-7) HCT (test code = 34.3 % 38.4-49.3 L 4544-3) MCV (test code = 92.0 fL 81.7-95.6 787-2) MCH (test code = 31.6 pg 26.1-32.7 785-6) MCHC (test code = 34.4 g/dL 31.2-35 786-4) RDW-SD (test code = 41.3 fL 38.5-51.6 24169-1) RDW-CV (test code = 12.3 % 12.1-15.4 788-0) PLT (test code = See_Comment [Automated 777-3) message] The sy stem which generated this result transmitted reference range : 150 - 328 10*3/ ?L. The reference r betzy was not used to interpret this result as normal/abnormal . MPV (test code = 8.6 fL 9.8-13 L 52044-4) NRBC/100 WBC (test See_Comment [Automat ed code = 3118243225) message] The system which generated this result transmitted reference range : 0.0 - 10.0 /100 WBCs. The refer ence range was not u sed to interpret th is result as normal/abnormal . NRBC x10^3 (test code <0.01 See_Comment [Auto mated = 1493427902) message] The s ystem which generated this result transmitted reference range : 10*3/?L. The reference range was not used to interpret this result as normal/abnormal . GRAN MAT (NEUT) % 46.6 % (test code = 770-8) IMM GRAN % (test code 0.60 % = 9050651159) LYMPH % (test code = 39.3 % 736-9) MONO % (test code = 10.2 % 5905-5) EOS % (test code = 2.4 % 713-8) BASO % (test code = 0.9 % 706-2) GRAN MAT x10^3(ANC) 3.17 10*3/uL 1.99-6.95 (test code = 6009505589) IMM GRAN x10^3 (test 0.04 10*3/uL 0-0.06 code = 3658847858) LYMPH x10^3 (test code 2.67 10*3/uL 1.09-3.23 = 731-0) MONO x10^3 (test code 0.69 10*3/uL 0.36-1.02 = 742-7) EOS x10^3 (test code = 0.16 10*3/uL 0.06-0.53 711-2) BASO x10^3 (test code 0.06 10*3/uL 0.01-0.09 = 704-7) Lab Interpretation Abnormal (test code = 32528-7) [facility] AG-AB WITH [id number] 06:15:00 Test Item Value Reference Range Interpretation Comments HIV Negative Negative Semi-quantitative (test code = 05162-1) LILLIE (test code = Non-reactive for HIV-1 LILLIE) antigen and HIV-1/HIV-2 antibodies. ?No laboratory evidence of HIV infection. ?Repeat in 2-4 weeks if acute HIV infection is suspected. [facility] DallasTHYROID STIMULATING [id number] 06:05:00 Test Item Value Reference Range Interpretation Comments TSH (test code = See_Comment [Automated message] 2743724549) The system [employer] generated this result transmitted ref erence range: 0.45 - 4 .70 mIU/L. The refe rence range was not u sed to interpret this result as normal/abnor mal. Lab Interpretation (test Normal code = 40161-5) [facility] DallasGLYCOSYLATED HEMOGLOBIN (A1C)2020-01-19 05:39:00 Test Item Value Reference Interpretation Comments Range HGB A1C (test code = See_Comment [Autom ated 4548-4) message] The system which generated this result transmitted reference range : 4.0 - 6.0 % NGSP. The reference range was not used to interpret this result as normal/abnormal . LILLIE (test code = %A1C (NGSP) LILLIE) Interpretation (ADA)4.8-5.6 ? ? Normal or (Non-Diabetic Range)5.7-6.4 ? ? Increased Risk (Pre-Diabetic)>6.5 ?Diabetes Indicated Lab Interpretation Normal (test code = 62182-7) [facility] DallasCREATINE [id number] 05:33:00 Test Item Value Reference Range Interpretation Comments CK (test code = 7341338279) 143 U/L 33-194 Lab Interpretation (test code = Normal 66204-7) [facility] DallasAD / [facility] - DRUG SCREEN [id number] 00:30:00 Test Item Value Reference Range Interpretation Comments BENZO U (test code = Negative Negative 4806606061) ANA MARIA U (test code = Negative Negative 1173204859) AMPHET (test code = Negative Negative 9810882864) THC (test code = Presumptive Negative A Confirmatio n of 4165730537) Positive Presumptive Positive THC result requires physician order . METHADONE (test code Negative Negative = 7764343598) Meth U (test code = Negative Negative 3633119300) OPIATES (test code = Negative Negative 6152445643) Cocaine Metabolite Negative Negative (test code = 2318691171) PROPOXY (test code = Negative Negative 8344193604) Tric U (test code = Negative Negative 8129965126) PCP (test code = Negative Negative 9189086085) OXYCOD (test code = Negative Negative 2817286362) LILLIE (test code = Urine Drug Cutoff LILLIE) Ranges Benzodiazepines: ? ? 150 ng/mLBarbiturates : ?200 ng/mLAmphetamine: ? 500 ng/mLCannabinoids : ?50 ?ng/mLMethadone: ? 200 ng/mLMethamphetam ine: ? ? 500 ng/mL Opiates: ? 100 ng/mL or 2000 ng/mLCocaine: ? 150 ng/mLPropoxyphene : ?300 ng/mLTricyclics: ?300 ng/mLOxycodone: ? 100 ng/mLPCP: ? 25 ?ng/mL The results are to be used only for medical (i.e., treatment) purposes. Unconfirmed screening results must not be used for non-medical purposes (e.g., employment testing, legal testing). Lab Interpretation Abnormal (test code = 04966-7) [facility] DallasTROPONIN [id number] 23:42:00 Test Item Value Reference Range Interpretation Comments TROPONIN I (test 0.003 ng/mL See_Comment [Automated code = 4923195383) message] The system which generated this result transmitted reference range : <=0.034. The reference range was not used to interpret this result as normal/abnormal . LILLIE (test code = Equal or Less than LILLIE) 0.034 ng/ml---Normal ?Note: Cardiac troponin begins to rise 3-4 hours after the onset of ischemia. Repeat in 4-6 hours if the sample was drawn within 3-4 hours of the onset of the symptom and found normal. Between 0.035 and 0.120 ng/mL--- Borderline. Questionable myocardial injury or necrosis ? ?Note: Serial measurement may be necessary to confirm or exclude the diagnosis of myocardial injury or necrosis; Clinical correlation (symptoms, EKGs, imaging studies, and others) required; Repeat in 4-6 hours if clinically indicated. ? Equal or Higher than 0.121 ng/mL---Abnormal. Myocardial Injury or Necrosis Likely ? Biotin has been reported to cause a negative bias, interpret results relative to patient's use of biotin. ? Lab Interpretation Normal (test code = 84781-1) [facility]. METABOLIC PANEL (88013)2020-01-18 23:30:00 Test Item Value Reference Range Interpretation Comments NA (test code = 144 mmol/L 135-145 4130310135) K (test code = 3.8 mmol/L 3.5-5 9902836362) CL (test code = 107 mmol/L 98-108 0159550242) CO2 TOTAL (test code = 23 mmol/L -31 2427033520) AGAP (test code = 2-16 4096861653) BUN (test code = 7 mg/dL 7-23 8017215437) GLUCOSE (test code = 143 mg/dL 70-110 H 6233040257) CREATININE (test code = 0.60 mg/dL 0.6-1.25 5756631643) TOTAL BILI (test code = 0.2 mg/dL 0.1-1.1 6397856348) CALCIUM (test code = 9.5 mg/dL 8.6-10.6 2274214831) T PROTEIN (test code = 8.3 g/dL 6.3-8.2 H 9308059443) ALBUMIN (test code = 5.3 g/dL 3.5-5 H 6811729852) ALK PHOS (test code = 91 U/L 34-122 4074639261) ALTv (test code = 199 U/L 5-50 H 1742-6) AST(SGOT) (test code = 108 U/L 13-40 H 8413327795) eGFR Calculation mL/min/1.73m2 (Non-) (test code = 9888865259) eGFR Calculation mL/min/1.73m2 () (test code = 1506425490) LILLIE (test code = LILLIE) Association of Glomerular Filtration Rate (GFR) and Staging of Kidney Disease* + --+ --+ ------+| GFR (mL/min/1.73 m2) ?| With Kidney Damage ?| ?Without Kidney Damage+ --------+ --------+ +| ?>90 ?| ?Stage one ?| ? Normal ?+ ---+ ---+ -------+| ?60-89 ?| ?Stage two ?| ? Decreased GFR ? + --+ --+ ------+| ?30-59 ?| ?Stage three ?| ? Stage three ? + --+ --+ ------+| ?15-29 ?| ?Stage four ? | ? Stage four ?+ ---+ ---+ -------+| ?<15 (or dialysis) ? ?| ?Stage five ? | ? Stage five ?+ ---+ ---+ -------+ *Each stage assumes the associated GFR level has been in effect for at least three months. ?Stages 1 to 5, with or without kidney disease, indicate chronic kidney disease. Notes: Determination of stages one and two (with eGFR >59mL/min/1.73 m2) requires estimation of kidney damage for at least three months as defined by structural or functional abnormalities of the kidney, manifested by either:Pathological abnormalities or Markers of kidney damage (including abnormalities in the composition of the blood or urine or abnormalities in imaging tests). Lab Interpretation Abnormal (test code = 67971-3) [facility] Dallas[facility]OL2020-02-28 23:30:00 Test Item Value Reference Range Interpretation Comments ALCOHOL (test code = 112 mg/dL 1964235576) LILLIE (test code = LILLIE) <10 Krbqmmgi42-887 Toxic>100 Depression of FRUIT II FARMWORKER>400 Fatalities Reported [facility] DallasCBC WITH [id number] 23:19:00 Test Item Value Reference Range Interpretation Comments WBC (test code = See_Comment [Automated 0790-2) message] The sy stem which generated this result transmitted reference range : 4.20 - 10.70 10*3/?L. The reference range was not used to interpret this result as normal/abnormal . RBC (test code = See_Comment [Automated 789-8) message] The sy stem which generated this result transmitted reference range : 4.26 - 5.52 10*6/?L. The reference range was not used to interpret this result as normal/abnormal . HGB (test code = 14.8 g/dL 12.2-16.4 718-7) HCT (test code = 42.4 % 38.4-49.3 4544-3) MCV (test code = 89.5 fL 81.7-95.6 787-2) MCH (test code = 31.2 pg 26.1-32.7 785-6) MCHC (test code = 34.9 g/dL 31.2-35 786-4) RDW-SD (test code = 40.7 fL 38.5-51.6 55041-9) RDW-CV (test code = 12.4 % 12.1-15.4 788-0) PLT (test code = See_Comment [Automated 777-3) message] The sy stem which generated this result transmitted reference range : 150 - 328 10*3/ ?L. The reference r betzy was not used to interpret this result as normal/abnormal . MPV (test code = 8.1 fL 9.8-13 L 09263-3) NRBC/100 WBC (test See_Comment [Automat ed code = 3961245376) message] The system which generated this result transmitted reference range : 0.0 - 10.0 /100 WBCs. The refer ence range was not u sed to interpret th is result as normal/abnormal . NRBC x10^3 (test code <0.01 See_Comment [Auto mated = 7025630359) message] The s ystem which generated this result transmitted reference range : 10*3/?L. The reference range was not used to interpret this result as normal/abnormal . GRAN MAT (NEUT) % 66.2 % (test code = 770-8) IMM GRAN % (test code 0.30 % = 8013650118) LYMPH % (test code = 22.7 % 736-9) MONO % (test code = 9.3 % 5905-5) EOS % (test code = 0.9 % 713-8) BASO % (test code = 0.6 % 706-2) GRAN MAT x10^3(ANC) 5.92 10*3/uL 1.99-6.95 (test code = 7075510841) IMM GRAN x10^3 (test 0.03 10*3/uL 0-0.06 code = 8744381383) LYMPH x10^3 (test code 2.03 10*3/uL 1.09-3.23 = 731-0) MONO x10^3 (test code 0.83 10*3/uL 0.36-1.02 = 742-7) EOS x10^3 (test code = 0.08 10*3/uL 0.06-0.53 711-2) BASO x10^3 (test code 0.05 10*3/uL 0.01-0.09 = 704-7) Lab Interpretation Abnormal (test code = 94038-4) [facility]"
[2023-04-23] MEDS ORDERED: KETOROLAC 30 MG/ML INJ ONE (10:15)
--- NOTE | 2023-04-23 11:08 | RAD REPORT ---
EXAM DESCRIPTION: RAD - Ribs Left - 04/23/2023 10:21 am CLINICAL HISTORY: PAIN COMPARISON: Chest Single View dated 04/23/2023 FINDINGS/IMPRESSION: No acute fracture. No malalignment. No significant focal degenerative changes. ACDF the cervical spine.
--- NOTE | 2023-04-23 11:08 | RAD REPORT ---
EXAM DESCRIPTION: RAD - Chest Single View - 04/23/2023 10:22 am CLINICAL HISTORY: PAIN COMPARISON: No comparisons FINDINGS: Lines: None. Lungs: No evidence of edema or pneumonia. Pleural: No significant pleural effusions or pneumothorax. Cardiac: The heart size is within normal limits. Mediastinum: Within normal limits. Bones: No acute fractures. ACDF in the cervical spine. Other: None IMPRESSION: No acute cardiopulmonary disease.
--- NOTE | 2023-04-23 11:15 | ER ---
Nurse's Notes [facility] Name: Morro Norwood Age: 37 yrs Sex: Male : 1985 Arrival Date: 04/23/2023 Time: 09:48 Bed 13 Private MD: Diagnosis: Rib contusion Presentation: 04/23 10:06 Chief complaint: Patient states: Tripped going up his stairs last night. L sided ll1 anterior rib pain since. Coronavirus screen: Vaccine status: Patient reports receiving the 2nd dose of the covid vaccine. Client denies travel out of the [place] in the last 14 days. At this time, the client does not indicate any symptoms associated with coronavirus-19. Ebola Screen: Patient denies travel to an Ebola-affected area in the 21 days before illness onset. Initial Sepsis Screen: Does the patient meet any 2 criteria? No. Patient's initial sepsis screen is negative. Does the patient have a suspected source of infection? No. Patient's initial sepsis screen is negative. Risk Assessment: Do you want to hurt yourself or someone else? Patient reports no desire to harm self or others. Onset of symptoms was April 22, 2023. 10:06 Method Of Arrival: Ambulatory ll1 10:06 Acuity: SHAYNE 4 ll1 11:41 Care prior to arrival: None. Mechanism of Injury: Fall down steps. Trauma event kr3 details: Injury occurred in the [facility]. Triage Assessment: 10:08 General: Appears uncomfortable, Behavior is calm, cooperative, appropriate for age. ll1 Pain: Complains of pain in L rib cage Quality of pain is described as aching. Musculoskeletal: Reports pain in L rib cage. Historical: - Allergies: 09:59 No Known Allergies; ll1 - PMHx: 09:59 Anxiety; Hypertensive disorder; ll1 - PSHx: 09:59 neck; ll1 - Immunization history:: Adult Immunizations up to date. - Social history:: Smoking status: Patient denies any tobacco usage or history of. - Immunization history: Last tetanus immunization: - up to date. Screenin:[facility] ED Fall Risk Assessment (Adult) History of falling in the last 3 months, kr3 including since admission Yes- single mechanical fall (1 pt) Confusion or Disorientation No (0 pts) Intoxicated or Sedated No (0 pts) Impaired Gait No (0 pts) Mobility Assist Device Used No (0 pt) Altered Elimination No (0 pt) Score/Fall Risk Level 0 - 2 = Low Risk Oriented to surroundings, Maintained a safe environment, Educated pt \T\ family on fall prevention, incl call for assistance when getting out of bed. Abuse screen: Denies threats or abuse. Nutritional screening: No deficits noted. Tuberculosis screening: No symptoms or risk factors identified. Primary Survey: 09:59 NO uncontrolled hemorrhage observed. A: The client is awake and alert. The airway is kr3 patent. 09:59 Circulation: No external hemorrhage present. Regular and strong central pulse, skin kr3 warm/dry/normal color. Disability Pupils are equal, round, reactive to light and accommodation. Exposure/Environment: A warming method has been applied: A warm blanket has been provided to the patient. Reassessment. 11:45 Breathing/Chest: Spontaneous respiratory effort, equal unlabored respirations, breath kr3 sounds clear bilaterally, regular pattern, symmetrical chest rise and fall. 11:45 Reassessment Breathing: Spontaneous respiratory effort, equal unlabored respirations, kr3 breath sounds clear bilaterally, regular pattern with symmetrical chest rise and fall. Assessment: 10:46 General: Appears in no apparent distress. uncomfortable, Behavior is calm, cooperative, kr3 appropriate for age. Pain: Complains of pain in left side rib cage area. 11:35 Reassessment: Patient appears in no apparent distress at this time. Patient and/or kr3 family updated on plan of care and expected duration. Pain level reassessed. Patient is alert, oriented x 3, equal unlabored respirations, skin warm/dry/pink. Vital Signs: 10:06 BP 157 / 95; Pulse 75; Resp 17; Temp 97.8; Pulse Ox 94% on R/A; Weight 99.79 kg; Height ll1 5 ft. 8 in. ; Pain 10/10; 11:15 BP 129 / 92; Pulse 67; Resp 18; Pulse Ox 96% on R/A; kr3 10:06 Body Mass Index 33.45 (99.79 kg, 172.72 cm) ll1 10:06 Pain Scale: Adult ll1 Fairchance Coma Score: 11:45 Eye Response: spontaneous(4). Motor Response: obeys commands(6). Verbal Response: kr3 oriented(5). Total: 15. Trauma Score (Adult): 11:44 Eye Response: spontaneous(1); Verbal Response: oriented(1); Motor Response: obeys kr3 commands(2); Systolic BP: > 89 mm Hg(4); Respiratory Rate: 10 to 29 per min(4); Fairchance Score: 15; Trauma Score: 12 ED Course: 09:51 Patient arrived in ED. mr 09:52 [facility] 09:52 Dale Mayers MD is Attending Physician. jh7 09:59 Arm band placed on Patient placed in an exam room, on a stretcher. ll1 09:59 Call light in reach. Side rails up X 1. kr3 10:04 Maris Mann, JG is Primary Nurse. kr3 10:07 Triage completed. ll1 10:23 XRAY Ribs LEFT In Process Unspecified. EDMS 10:23 XRAY Chest (1 view) In Process Unspecified. EDMS 11:44 No provider procedures requiring assistance completed. Patient did not have IV access kr3 during this emergency room visit. 11:46 Patient maintains SpO2 saturation greater than 95% on room air. kr3 11:46 Thermoregulation: warm blanket given to patient. kr3 Administered Medications: 10:17 Drug: Ketorolac IM 60 mg Route: IM; Site: right deltoid; kr3 11:47 Follow up: Response: No adverse reaction kr3 Medication: 11:41 VIS not applicable for this client. kr3 Intake: 11:45 PO: 0ml; Total: 0ml. kr3 Outcome: 11:14 Discharge ordered by . jh7 11:45 Discharged to home ambulatory. kr3 11:45 Condition: stable 11:45 Discharge instructions given to patient, Instructed on discharge instructions, follow up and referral plans. Prescriptions given X 2. 11:46 Patient's length of stay was not longer than 2 hours. kr3 11:46 Patient left the ED. kr3 Signatures: Dispatcher [employer] [facility] AugustusFay mr WolfeParish, RN RN 1 Kellie Aguirre FNP [employer] [facility] Maris Mann, JG RN kr3
--- NOTE | 2023-04-23 11:15 | EDPHYS ---
Physician Documentation [facility] Name: Morro Norwood Age: 37 yrs Sex: Male : 1985 Arrival Date: 04/23/2023 Time: 09:48 Bed 13 Private MD: ED Physician Dale Mayers HPI: 04/23 09:55 This 37 yrs old Male presents to ER via Unassigned with complaints of Fall Injury, Rib jh7 pain. 09:55 Details of fall: The patient fell from an upright position, while standing. Onset: The jh7 symptoms/episode began/occurred last night. Associated injuries: The patient sustained L lateral ribs 5-8, painful injury. 56-year-old male states that last night he lost his balance and fell into the stairs striking his left lateral ribs. Denies tenderness to palpation but reports pain in the affected area with movement and taking a deep breath. No other symptoms at this time.. Historical: - Allergies: 09:59 No Known Allergies; ll1 - PMHx: 09:59 Anxiety; Hypertensive disorder; ll1 - PSHx: 09:59 neck; ll1 - Immunization history:: Adult Immunizations up to date. - Social history:: Smoking status: Patient denies any tobacco usage or history of. - Immunization history: Last tetanus immunization: - up to date. ROS: 09:55 Constitutional: Negative for fever, chills, and weight loss, Eyes: Negative for injury, jh7 pain, redness, and discharge, Neck: Negative for injury, pain, and swelling, Cardiovascular: Negative for chest pain, palpitations, and edema, Respiratory: Negative for shortness of breath, cough, wheezing, and pleuritic chest pain, Abdomen/GI: Negative for abdominal pain, nausea, vomiting, diarrhea, and constipation, Back: Negative for injury and pain, Skin: Negative for injury, rash, and discoloration, Neuro: Negative for headache, weakness, numbness, tingling, and seizure. 09:55 MS/extremity: Positive for injury or acute deformity, pain, tenderness, of the Left lateral ribs 5 through 8. 09:55 All other systems are negative. Exam: 09:55 Constitutional: This is a well developed, well nourished patient who is awake, alert, jh7 and in no acute distress. Neck: Trachea midline, no thyromegaly or masses palpated, and no cervical lymphadenopathy. Supple, full range of motion without nuchal rigidity, or vertebral point tenderness. No Meningismus. Cardiovascular: Regular rate and rhythm with a normal S1 and S2. No gallops, murmurs, or rubs. Normal PMI, no JVD. No pulse deficits. Respiratory: Lungs have equal breath sounds bilaterally, clear to auscultation and percussion. No rales, rhonchi or wheezes noted. No increased work of breathing, no retractions or nasal flaring. Abdomen/GI: Soft, non-tender, with normal bowel sounds. No distension or tympany. No guarding or rebound. No evidence of tenderness throughout. Back: No spinal tenderness. No costovertebral tenderness. Full range of motion. Skin: Warm, dry with normal turgor. Normal color with no rashes, no lesions, and no evidence of cellulitis. MS/ Extremity: Pulses equal, no cyanosis. Neurovascular intact. Full, normal range of motion. Neuro: Awake and alert, GCS 15, oriented to person, place, time, and situation. Motor strength 5/5 in all extremities. Sensory grossly intact. Normal gait. 09:55 Chest/axilla: Inspection: normal, Palpation: is normal, Left lateral rib pain 5 through 8 exacerbated by movement and taking a deep breath. No tenderness or swelling noted.. Vital Signs: 10:06 BP 157 / 95; Pulse 75; Resp 17; Temp 97.8; Pulse Ox 94% on R/A; Weight 99.79 kg; Height ll1 5 ft. 8 in. ; Pain 10/10; 11:15 BP 129 / 92; Pulse 67; Resp 18; Pulse Ox 96% on R/A; kr3 10:06 Body Mass Index 33.45 (99.79 kg, 172.72 cm) ll1 10:06 Pain Scale: Adult ll1 Pam Coma Score: 11:45 Eye Response: spontaneous(4). Motor Response: obeys commands(6). Verbal Response: kr3 oriented(5). Total: 15. Trauma Score (Adult): 11:44 Eye Response: spontaneous(1); Verbal Response: oriented(1); Motor Response: obeys kr3 commands(2); Systolic BP: > 89 mm Hg(4); Respiratory Rate: 10 to 29 per min(4); Pam Score: 15; Trauma Score: 12 MDM: 09:52 Patient medically screened. [facility] 11:15 Differential diagnosis: contusion, fracture, strain. Data reviewed: vital signs, nurses [facility] notes, radiologic studies, plain films. I considered the following discharge prescriptions or medication management in the emergency department Medications were administered in the Emergency Department. See MAR. Independent interpretation of the following test(s) in the Emergency Department X-Ray: My interpretation is No acute fractures. Care significantly affected by the following chronic conditions: Hypertension. Counseling: I had a detailed discussion with the patient and/or guardian regarding: the historical points, exam findings, and any diagnostic results supporting the discharge/admit diagnosis, to return to the emergency department if symptoms worsen or persist or if there are any questions or concerns that arise at home. Response to treatment: the patient's symptoms have mildly improved after treatment. 04/23 09:59 Order name: XRAY Ribs LEFT; Complete Time: 11:13 [facility] 04/23 09:59 Order name: XRAY Chest (1 view); Complete Time: 11:13 [facility] Administered Medications: 10:17 Drug: Ketorolac IM 60 mg Route: IM; Site: right deltoid; kr3 11:47 Follow up: Response: No adverse reaction [facility] Disposition Summary: 04/23/23 11:14 Discharge Ordered Location: Home [facility] Problem: new [facility] Symptoms: have improved [facility] Condition: Stable [facility] Diagnosis - Rib contusion [facility] Followup: [facility] - With: Private Physician - When: 2 - 3 days - Reason: Recheck today's complaints Discharge Instructions: - Discharge Summary Sheet [facility] - Rib Contusion [facility] - Fall Prevention in the Home, Adult [facility] Forms: - Work release form eb - Medication Reconciliation Form [facility] - Thank You Letter [facility] Prescriptions: - Naprosyn 500 mg Oral Tablet - take 1 tablet by ORAL route 2 times per day take with food; 30 tablet; Refills: [facility] 0, Product Selection Permitted - Zanaflex 4 mg Oral Tablet - take 1 tablet by ORAL route every 8 hours As needed; 20 tablet; Refills: 0, jh7 Product Selection Permitted Signatures: Dis[facility] RN RN ll1 Kellie Aguirre FNP DRAWER WAXER 7 Johnathan, Maris, RN RN kr3
[2023-04-23 11:55] VITALS: TEMP 97.8
[2023-04-23 11:57] VITALS: BP 129/92; O2SAT 96
== END 2023-04-23 11:46 | disposition home or self-care (01) ==
LOC: ER 09:48
DX: S20.219A Contusion of unspecified front wall of thorax, initial encounter (principal)
CPT/HCPCS: 71045; 96372; 99284

== ENCOUNTER 2023-09-20 15:40 | Emergency (ER) | payer SELFPAY ==
--- OUTSIDE RECORDS SUMMARY | 2023-09-20 15:47 | XMS REPORT | Continuity of Care Document ---
:1985 Author Organization [facility] t Address [address] [place] [address] [place] [id number] Care Team Providers Name Role Phone PCP, PATIENT DOES NOT HAVE A Primary Care Physician Unavaila ble RADIOLOGY Attending Clinician Unavailable Radiology Attending Clinician Unavailable STEFANI WATSON Attending Clinician Unavailable Chapincito Anderson MD Attending Clinician Mahad Hayden DO Attending Clinician Stefani Dean Attending Clinician Jose Angel Kate DO Attending Clinician Lab, [facility] Pob I Attending Clinician Unavailable Malorie Altamirano Attending Clinician Doctor Unassigned, [place] Attending Clinician Unavailable Milana Arreguin DO Attending [...] Date Expiration Date S lalo MULTIPLAN GENERIC [id number] 2020 00:00:00 Problems Condition Condition Condition Status Onset Resolution Last Treating Co mments Source Name Details Category Date Date Treatment Clinician Date Alcohol Alcohol Disease Active Univers withdrawal withdrawal 8-02 it y of 00:: [place] [facility] Sinus Sinus Disease Active Univers tachycardi tachycardi 2- it y of a a 00:: [place] [address] Medical Branch Essential Essential Disease Active Uni vers hypertensi hypertensi 2-29 it y of on on 00:: [place] [address] Medical Branch Alcohol Alcohol Disease Active Univers intoxicati intoxicati 2-28 it y of on on 00:: [place] [address] Medical Branch Obesity Obesity Disease Active Univers (BMI (BMI 4-17 ity of 30-39.9) 30-39.9) 00:00: [place] [address] Medical Branch Allergies, Adverse Reactions, Alerts Allergy Allergy Status Severity Reaction(s) Onset Inactive Treating Comm ents Source Name Type Date Date Clinician NO KNOWN Drug Active Univers ALLERGIE Class ity of S [place] [facility] Social History Social Habit Start Date Stop Date Quantity Comments Source Exposure to Not sure [place] of SARS-CoV-2 [place] [facility] (event) [facility] History [facility] University o f Alcohol Binge [place] [facility] History of Current smoker University of tobacco use [place] [facility] History [facility] University o f Alcohol Comment [place] [facility] Alcohol intake 2021-01-04 2021-01-04 Current drinker Unive rsity of 00:00:00 00:00:00 of alcohol [place] [facility] (finding) Branch History [facility] 2020-01-19 2020-01-19 5 University o f Alcohol Frequency 00:00:00 00:00:00 [place] [facility] History [facility] 2020-01-19 2020-01-19 5 University o f Alcohol Std 00:00:00 00:00:00 [place] [facility] Tobacco use and 2020-01-18 2020-01-18 Smokeless tobacco Un iversity of exposure 00:00:00 00:00:00 non-user [facility] Sex Ass[birth year] At [birth year] Universit y of 00:00:00 00:00:00 [facility] Smoking Status Start Date Stop Date Source Ex-smoker 2020-01-18 00:00:00 2020-01-18 00:00:00 [facility] Medications Ordered Filled Start Stop Current Ordering [...] :00 ONCE, 1 Medical 10 mg dose, [place] Branch 01/04/21 at 1745, TIA ondansetron 2020- [...] IV Medical Infusion, Branch ONCE, 1 dose, [place] 01/04/21 at 1330, TIA hydrOXYzine 2020-0 Yes [id number] 25mg Take 1 Univers 25 mg 2-14 tablet by ity of tablet 00:00: mouth [place] 00 every 6 Medical (six) Branch hours as needed for Anxiety. hydrOXYzine 2020-0 Yes [id number] 25mg Take 1 Univers 25 mg 2-14 tablet by ity of tablet 00:00: mouth [place] 00 every 6 Medical (six) Branch hours as needed for Anxiety. hydrOXYzine 2020-0 Yes [id number] 25mg Take 1 Univers 25 mg 2-14 tablet by ity of tablet 00:00: mouth [place] 00 every 6 Medical (six) Branch hours as needed for Anxiety. hydrOXYzine 2020-0 Yes [id number] 25mg Take 1 Univers 25 mg 2-14 tablet by ity of tablet 00:00: mouth [place] 00 every 6 Medical (six) Branch hours as needed for Anxiety. hydrOXYzine 2020-0 Yes [id number] 25mg Take 1 [facility] 25 mg 2-14 tablet by ity of tablet 00:00: mouth [place] 00 every 6 Medical (six) Branch hours as needed for Anxiety. hydrOXYzine 2020-0 Yes [id number] 25mg Take 1 Univers 25 mg 2-14 tablet by ity of tablet 00:00: mouth [place] 00 every 6 Medical (six) Branch hours as needed for Anxiety. hydrOXYzine 2020-0 Yes [id number] 25mg Take 1 Univers 25 mg 2-14 tablet by ity of tablet 00:00: mouth [place] 00 every 6 Medical (six) Branch hours as needed for Anxiety. hydrOXYzine 2020-0 Yes [id number] 25mg Take 1 Univers 25 mg 2-14 tablet by ity of tablet 00:00: mouth [place] 00 every 6 Medical (six) Branch hours as needed for Anxiety. hydrOXYzine 2020-0 Yes [id number] 25mg Take 1 Univers 25 mg 2-14 [...] at Branch 1015, TIA ondansetron 2020-0 Yes [id number] 4mg Take 1 Univers 4 mg 8-06 tablet by ity of disintegrat 00:00: mouth [place] ing tablet 00 every 8 Medica l (eight) Branch hours as needed for Nausea and Vomiting (N/V). ondansetron 2020-0 Yes [id number] 4mg Take 1 Univers 4 mg 8-06 tablet by ity of disintegrat 00:00: mouth [place] ing tablet 00 every 8 Medica l (eight) Branch hours as needed for Nausea and Vomiting (N/V). ondansetron 2020-0 Yes [id number] 4mg Take 1 Univers 4 mg 8-06 tablet by ity of disintegrat 00:00: mouth [place] ing tablet 00 every 8 Medica l (eight) Branch hours as needed for Nausea and Vomiting (N/V). ondansetron 2020-0 Yes [id number] 4mg Take 1 Univers 4 mg 8-06 tablet by ity of disintegrat 00:00: mouth [place] ing tablet 00 every 8 Medica l (eight) Branch hours as needed for Nausea and Vomiting (N/V). ondansetron 2020-0 Yes [id number] 4mg Take 1 Univers 4 mg 8-06 tablet by ity of disintegrat 00:00: mouth [place] ing tablet 00 every 8 Medica l (eight) Branch hours as needed for Nausea and Vomiting (N/V). ondansetron 2020-0 Yes [id number] 4mg Take 1 Univers 4 mg 8-06 tablet by ity of disintegrat 00:00: mouth [place] ing tablet 00 every 8 Medica l (eight) Branch hours as needed for Nausea and Vomiting (N/V). ondansetron 2020-0 Yes [id number] 4mg Take 1 Univers 4 mg 8-06 tablet by ity of disintegrat 00:00: mouth [place] ing tablet 00 every 8 Medica l (eight) Branch hours as needed for Nausea and Vomiting (N/V). ondansetron 2020-0 Yes [id number] 4mg Take 1 Univers 4 mg 8-06 tablet by ity of disintegrat 00:00: mouth [place] ing tablet 00 every 8 Medica l (eight) Branch hours as needed for Nausea and Vomiting (N/V). ondansetron 2020-0 Yes [id number] 4mg Take 1 Univers 4 mg 8-06 tablet by ity of disintegrat 00:00: mouth [place] ing tablet 00 every 8 Medica l (eight) Branch hours as needed for Nausea and Vomiting (N/V). ondansetron 2020-0 Yes [id number] 4mg Take 1 Univers 4 mg 8-06 tablet by ity of disintegrat 00:00: mouth [place] ing tablet 00 every 8 Medica l (eight) Branch hours as needed for Nausea and Vomiting (N/V). ondansetron 2020-0 Yes [id number] 4mg Take 1 Univers 4 mg 8-06 tablet by ity of disintegrat 00:00: mouth [place] ing tablet 00 every 8 Medica l (eight) Branch hours as needed for Nausea and Vomiting (N/V). ondansetron 2020-0 Yes [id number] 4mg Take 1 Univers 4 mg 8-06 tablet by ity of disintegrat 00:00: mouth [place] ing tablet 00 every 8 Medica l (eight) Branch hours as needed for Nausea and Vomiting (N/V). chlordiazeP 2020-0 2020- No [id number] Take 2 Univers OXIDE 25 mg 8- 08-11 capsules ity of capsule 00:00: 04:59 by mouth 4 [place] 00 :00 (four) Medical times Branch daily for 1 day, THEN 1 capsule 4 (four) times daily for 1 day, THEN 1 capsule 2 (two) times daily for 1 day, THEN 1 capsule at bedtime for 1 day. chlordiazeP 2020-0 2020- No [id number] Take 2 Univers OXIDE 25 mg 8- 08-11 capsules ity of capsule 00:00: 04:59 by mouth 4 [place] 00 :00 (four) Medical times Branch daily for 1 day, THEN 1 capsule 4 (four) times daily for 1 day, THEN 1 capsule 2 (two) times daily for 1 day, THEN 1 capsule at bedtime for 1 day. chlordiazeP 2020-0 2020- No [id number] Take 2 Univers OXIDE 25 mg 8- capsules ity of capsule 00:00: 04:59 by mouth 4 [place] 00 :00 (four) Medical times Branch daily for 1 day, THEN 1 capsule 4 (four) times daily for 1 day, THEN 1 capsule 2 (two) times daily for 1 day, THEN 1 capsule at bedtime for 1 day. lisinopril 2020-0 Yes [id number] 5mg Take 1 Univers 5 mg tablet 8-05 tablet by ity of 00:00: mouth [place] 00 daily. Medical Branch lisinopril 2020-0 Yes [id number] 5mg Take 1 Univers 5 mg tablet 8-05 tablet by ity of 00:00: mouth [place] 00 daily. Medical Branch lisinopril 2020-0 Yes [id number] 5mg Take 1 Univers 5 mg tablet 8-05 tablet by ity of 00:00: mouth [place] 00 daily. Medical Branch lisinopril 2020-0 Yes [id number] 5mg Take 1 Univers 5 mg tablet 8-05 tablet by ity of 00:00: mouth [place] 00 daily. Medical Branch lisinopril 2020-0 Yes [id number] 5mg Take 1 Univers 5 mg tablet 8-05 tablet by ity of 00:00: mouth [place] 00 daily. Medical Branch lisinopril 2020-0 Yes [id number] 5mg Take 1 Univers 5 mg tablet 8-05 tablet by ity of 00:00: mouth [place] 00 daily. Medical Branch lisinopril 2020-0 Yes [id number] 5mg Take 1 Univers 5 mg tablet 8-05 tablet by ity of 00:00: mouth [place] 00 daily. Medical Branch lisinopril 2020-0 Yes [id number] 5mg Take 1 Univers 5 mg tablet 8-05 tablet by ity of 00:00: mouth [place] 00 daily. Medical Branch lisinopril 2020-0 Yes [id number] 5mg Take 1 Univers 5 mg tablet 8-05 tablet by ity of 00:00: mouth [place] 00 daily. Medical Branch lisinopril 2020-0 Yes [id number] 5mg Take 1 Univers 5 mg tablet 8-05 tablet by ity of 00:00: mouth [place] 00 daily. Medical Branch lisinopril 2020-0 Yes [id number] 5mg Take 1 Univers 5 mg tablet 8-05 tablet by ity of 00:00: mouth [place] 00 daily. Medical Branch lisinopril 2020-0 Yes [id number] 5mg Take 1 Univers 5 mg tablet 8-05 tablet by ity of 00:00: mouth [place] 00 daily. Medical Branch lisinopril 2020-0 Yes [id number] 5mg Take 1 Univers 5 mg tablet 8-05 tablet by ity of 00:00: mouth [place] 00 daily. Medical Branch lisinopril 2020-0 Yes [id number] 5mg Take 1 Univers 5 mg tablet [...] Discontinu ed, Routine, Insomnia propranolol 2020-0 Yes [id number] 10mg Take 1 Univers 10 mg 8-04 tablet by ity of tablet 00:00: mouth 2 (two) Medical times Branch daily. propranolol 2020-0 Yes [id number] 10mg Take 1 Univers 10 mg 8-04 tablet by ity of tablet 00:00: mouth (two) Medical times Branch daily. propranolol 2020-0 Yes [id number] 10mg Take 1 Univers 10 mg 8-04 tablet by ity of tablet 00:00: mouth (two) Medical times Branch daily. propranolol 2020-0 Yes [id number] 10mg Take 1 Univers 10 mg 8-04 tablet by ity of tablet 00:00: mouth (two) Medical times Branch daily. propranolol 2020-0 Yes [id number] 10mg Take 1 Univers 10 mg 8-04 tablet by ity of tablet 00:00: mouth (two) Medical times Branch daily. propranolol 2020-0 Yes [id number] 10mg Take 1 Univers 10 mg 8-04 tablet by ity of tablet 00:00: mouth 2 (two) Medical times Branch daily. propranolol 2020-0 Yes [id number] 10mg Take 1 Univers 10 mg 8-04 tablet by ity of tablet 00:00: mouth (two) Medical times Branch daily. propranolol 2020-0 Yes [id number] 10mg Take 1 Univers 10 mg 8-04 tablet by ity of tablet 00:00: mouth 2 (two) Medical times Branch daily. propranolol 2020-0 Yes [id number] 10mg Take 1 Univers 10 mg 8-04 tablet by ity of tablet 00:00: mouth 2 [place] 00 (two) Medical times Branch daily. propranolol 2020-0 Yes [id number] 10mg Take 1 Univers 10 mg 8-04 tablet by ity of tablet 00:00: mouth 2 [place] 00 (two) Medical times Branch daily. propranolol 2020-0 Yes [id number] 10mg Take 1 Univers 10 mg 8-04 tablet by ity of tablet 00:00: mouth 2 [place] 00 (two) Medical times Branch daily. propranolol 2020-0 Yes [id number] 10mg Take 1 Univers 10 mg 8-04 tablet by ity of tablet 00:00: mouth 2 [place] 00 (two) Medical times Branch daily. propranolol 2020-0 Yes [id number] 10mg Take 1 Univers 10 mg 8-04 tablet by ity of tablet 00:00: mouth 2 [place] (two) Medical times Branch daily. propranolol 2020-0 Yes [id number] 10mg Take 1 Univers 10 mg 8-04 tablet by ity of tablet 00:00: mouth 2 [place] (two) Medical times Branch daily. lisinopril 2020-0 Yes 5mg 5 mg, Univer s (PRINIVIL,Z 8- Oral, ity of ESTRIL) 14:00: DAILY, [place] tablet 5 mg 00 First dose Me dical on [facility] 06/23/20 at 0900, Until Discontinu ed, Routine foLIC acid 2020-0 Yes 1mg 1 mg, Univer s (FOLATE) 8 Oral, ity of tablet 1 mg 14:00: DAILY, [place] 00 First dose Medical on [facility] 06/23/20 at 0900, Until Discontinu ed, Routine thiamine 2020-0 Yes 100mg 100 mg, Unive rs (VITAMIN 8- Oral, ity of B1) tablet 14:00: DAILY, [place] 100 mg 00 First dose Medical on [facility] 06/23/20 at 0900, Until Discontinu ed, Routine enoxaparin 2020-0 Yes 40mg 40 mg, Unive rs (LOVENOX) 8 Subcutaneo ity of injection 14:00: [place], DAILY, [place] 40 mg 00 First dose Medical on [facility] 06/23/20 at 0900, Until Discontinu ed, Routine [...] First dose [place] mg 00 on [facility] 06/22/20 at Branch 2200, Until Discontinu ed, Routine LORazepam 2020-0 2020- No 2mg 2 mg, Slow U nivers (ATIVAN) 8 08-03 IV Push, ity of injection 2 03:00: 01:51 ONCE, 1 [place] mg 00 :00 dose, [facility] 06/22/20 at Branch 2200, STAT LORazepam 2020-0 Yes 2mg 2 mg, Slow Un jesus (ATIVAN) 8 IV Push, ity of injection 2 02:43: Q2HPRN, [place] mg 24 Starting [facility] 06/22/20 Branch at 2143, Until Discontinu ed, Routine, alcohol withdrawal oxazepam 2020-0 Yes 15mg 15 mg, Univers (SERAX) 8- Oral, ity of capsule 15 02:42: Q4HPRN, [place] mg 55 Starting [facility] 06/22/20 [place] at 2142, Until Discontinu ed, Routine, Only while awake for DBP equal to or greater than 100, HR equal to or greater than 100. glucagon 2020-0 Yes 1mg 1 mg, Univers (GLUCAGEN 06-23 Intramuscu ity of DIAGNOSTIC 02:41: lar, PRN, [place] KIT) 46 Starting Medical injection 1 [place] 06/22/20 Br anch mg at 2141, Until Discontinu ed, TIA, Blood Glucose < or = 70 mg/dL and patient is unable to swallow or has mental changes. dextrose 50 2019-0 Yes 25mL 25 mL, Univ ers % in water 06-23 Slow IV ity of (D50W) 02:41: Push, PRN, [place] injection 46 Starting Medica l 25 mL [place] 06/22/20 Branch at 2141, Until Discontinu ed, TIA, Blood Glucose < or = 70 mg/dL and patient is unable to swallow or has mental status changes. hydralAZINE 2019-0 2020- No 20mg 20 mg, Uni vers (APRESOLINE 06-23 Slow IV ity of ) injection 01:00: 00:22 Push, ONCE [place] 20 mg 00 :00 NOW, 1 Medical dose, [facility] 06/22/20 at 2000, TIA ondansetron 2019-0 [...] 1 [place] mg 00 :00 dose, [facility] 06/22/20 at Branch 1900, STAT foLIC acid 2020- No 1mg 1 mg, Unive rs (FOLATE) 06-23 Oral, ity of tablet 1 mg 00:00: 23:14 ONCE, 1 [place] 00 :00 dose, [facility] 06/22/20 at Branch 1900, TIA thiamine [...] 00:00: 00 foLIC acid 2019-0 2020- No [id number] 1mg Take 1 Univers 1 mg tablet 01-19 tablet by it y of 00:00: 04:59 mouth [place] 00 :00 daily for Medical 30 days. Branch thiamine 2020-0 2020- No [id number] 100mg Take 1 U nivers 100 mg -02-19 tablet by ity of tablet 00:00: 04:59 mouth [place] 00 :00 daily for Medical 30 days. Branch foLIC acid 2019-0 2020- No [id number] 1mg Take 1 Univers 1 mg tablet 01-19 tablet by it y of 00:00: 04:59 mouth [place] 00 :00 daily for Medical 30 days. Branch thiamine 2020-0 2020- No [id number] 100mg Take 1 U nivers 100 mg -11 24- tablet by ity of tablet 00:00: 04:59 mouth [place] 00 :00 daily for Medical 30 days. Branch foLIC acid 2020-0 2020- No [id number] 1mg Take 1 Univers 1 mg tablet 01-19 tablet by it y of 00:00: 04:59 mouth [place] 00 :00 daily for Medical 30 days. Branch thiamine 2020-0 2020- No [id number] 100mg Take 1 U nivers 100 mg -02-19 tablet by ity of tablet 00:00: 04:59 mouth [place] 00 :00 daily for Medical 30 days. Branch oxazepam 15 2019-0 2020- No [id number] 15mg Take 1 Univers mg capsule 01-19 capsule by it y of 00:00: 05:59 mouth [place] 00 :00 every 12 Medical (twelve) Branch hours for 2 doses. oxazepam 15 2020-0 2020- No [id number] 15mg Take 1 Univers mg capsule 01-19 capsule by it y of 00:00: 05:59 mouth [place] 00 :00 every 12 Medical (twelve) Branch hours for 2 doses. oxazepam 15 2019-0 2020- No [id number] 15mg Take 1 Univers mg capsule 01-19 [...] by mouth ity of 19:35: every 6 [place] 37 (six) Medical hours as Branch needed. Indication s: pain venlafaxine 2020-0 Yes [id number] 150mg Take 150 U nivers XR 150 mg 2-29 mg by ity of 24 hr 19:35: mouth [place] capsule 37 daily with Medica l breakfast. Branch Indication s: anxious traMADol 50 2020-0 Yes [id number] 50mg Take 50 mg Univers mg tablet 2-29 by mouth ity of 19:35: every 6 [place] 37 (six) Medical hours as Branch needed. Indication s: pain venlafaxine 2020-0 Yes [id number] 150mg Take 150 U nivers XR 150 mg 2-29 mg by ity of 24 hr 19:35: mouth [place] capsule 37 daily with Medica l breakfast. Branch Indication s: anxious traMADol 50 2020-0 Yes [id number] 50mg Take 50 mg Univers mg tablet 2-29 by mouth ity of 19:35: every 6 [place] 37 (six) Medical hours as Branch needed. [...] First dose [place] mg 00 on [facility] 01/18/20 at Branch 2330, Until Discontinu ed, Routine traMADol 2020-0 Yes 50mg 50 mg, Univers (ULTRAM) - Oral, ity of tablet 50 05:19: Q8HPRN, [place] mg 25 Starting Medical [facility] 01/18/20 at 2319, Until Discontinu ed, Routine, Pain (scale 4-6), Pain (scale 7-10) ondansetron 2020-0 Yes 4mg 4 mg, Slow Univers (ZOFRAN IV Push, ity of (PF)) 05:18: Q6HPRN, [place] injection 4 23 Starting Medi michelle mg [facility] 01/18/20 at 2318, Until Discontinu ed, Routine, Nausea and Vomiting (N/V) NaCl 0.9% 2020-0 2020- No 1000mL at 999 Uni vers (NS) bolus -29 mL/hr, ity of infusion 03:00: 02:08 1,000 mL, [place] 1,000 mL 00 :00 IV Medical Infusion, [place] ONCE, 1 dose, [facility] 01/18/20 at 2100, STAT foLIC acid 2020-0 2020- No 1mg 1 mg, Unive rs (FOLATE) Oral, ity of tablet 1 mg 02:45: 02:08 ONCE, 1 [place] 00 :00 dose, [facility] 01/18/20 at Branch 2045, TIA oxazepam 2020-0 Yes 15mg 15 mg, Univers (SERAX) - Oral, ity of capsule 15 01:38: Q4HPRN, [place] mg 27 Starting Medical [facility] 01/18/20 at 1938, Until Discontinu ed, Routine, [...] Medical 01/18/20 at Branch 1815, STAT propranolol 2019- 2020- No [id number] 10mg Take 1 Univers 10 mg 02-18 tablet by ity of tablet 00:00: 04:59 mouth 2 [place] 00 :00 (two) Medical times Branch daily for 30 days. propranolol 2019- 2020- No [id number] 10mg Take 1 Univers 10 mg 02-18 tablet by ity of tablet 00:00: 04:59 mouth 2 [place] 00 :00 (two) Medical times Branch daily for 30 days. propranolol 2019-0 2019- No [id number] 10mg Take 1 Univers 10 mg 02-18 tablet by ity of tablet 00:00: 04:59 mouth 2 [place] 00 :00 (two) Medical times Branch daily for 30 days. oxazepam 15 2019-0 2020- No [id number] 15mg Take 1 Univers mg capsule 01-20 capsule by it y of 00:00: 05:59 mouth [place] 00 :00 every 6 Medical (six) Branch hours for 2 doses. oxazepam 15 2019-0 2020- No [id number] 15mg Take 1 Univers mg capsule 01-20 capsule by it y of 00:00: 05:59 mouth [place] 00 :00 every 8 Medical (eight) Branch hours for 3 doses. Vital Signs Vital Name Observation Time Observation Value Comments Source Systolic blood 2021-01-22 16:25:00 122 mm[Hg] Univer sity [facility] [place] Diastolic blood 2021-01-22 16:25:00 81 [facility]Hg[facility] 16:25:[address] [facility] Body weight 2021-01-22 16:25:[address] [facility] BMI 2021-01-22 16:25:00 30.41 kg/m2 Universi ty [facility] [place] [facility] Systolic blood 2021-01-21 14:49:00 134 mm[Hg] Univer sity of pressure [place] [facility] Diastolic blood 2021-01-21 14:49:00 83 mm[Hg] Unive rsity of pressure [place] [facility] Heart rate 2021-01-21 14:49:00 72 /min Universi ty of [place] [facility] Body temperature 2021-01-21 14:49:00 37.33 Sona Univ ersity of [place] [facility] Respiratory rate 2021-01-21 14:49:00 16 /min Univ ersity of [place] [facility] Body height 2021-01-21 14:49:00 172.7 cm Universi ty [facility] [place] [facility] Body weight 2021-01-21 14:49:00 90.719 kg Universi ty of [place] [facility] BMI 2021-01-21 14:49:00 30.41 kg/m2 Universi ty of [place] [facility] Oxygen saturation in 2021-01-21 14:49:00 97 /min University of Arterial blood by [facility] Pulse oximetry Branch Heart rate 2021-01-04 23:35:00 93 /min Universi ty of [place] [facility] Respiratory rate 2021-01-04 23:35:00 18 /min Univ ersity of [place] [facility] Oxygen saturation in 2021-01-04 23:35:00 97 /min University of Arterial blood by [facility] Pulse oximetry Branch Systolic blood 2021-01-04 23:05:00 175 mm[Hg] Univer sity of pressure [place] [facility] Diastolic blood 2021-01-04 23:05:00 89 mm[Hg] Unive rsity of pressure [place] [facility] Body temperature 2021-01-04 19:08:00 37.06 Sona Univ ersity of [place] [facility] Body weight 2021-01-04 19:08:00 95.255 kg Universi ty of [place] [facility] BMI 2021-01-04 19:08:00 31.93 kg/m2 Universi ty [facility] [place] [facility] Systolic blood 2020-06-29 01:00:00 124 mm[Hg] Univer sity of pressure [place] [facility] Diastolic blood 2020-06-29 01:00:00 100 mm[Hg] Unive rsity of pressure [place] [facility] Heart rate 2020-06-29 01:00:00 70 /min Universi ty of [place] [facility] Respiratory rate 2020-06-29 01:00:00 18 /min Univ ersity of [place] [facility] Oxygen saturation in 2020-06-29 01:00:00 100 /min University of Arterial blood by [facility] michelle Pulse oximetry Branch Body temperature 2020-06-28 20:12:00 37.5 Sona Univ ersity of [place] [facility] Body weight 2020-06-28 20:12:00 90.719 kg Universi ty of [place] [facility] BMI 2020-06-28 20:12:00 30.41 kg/m2 Universi ty of [place] [facility] Systolic blood 2020-06-26 15:00:00 110 mm[Hg] Univer sity of pressure [place] [facility] Diastolic blood 2020-06-26 15:00:00 73 mm[Hg] Unive rsity of pressure [place] [facility] Heart rate 2020-06-26 15:00:00 95 /min Universi ty of [place] [facility] Respiratory rate 2020-06-26 15:00:00 18 /min Univ ersity of [place] [facility] Oxygen saturation in 2020-06-26 15:00:00 100 /min University of Arterial blood by [facility] michelle Pulse oximetry Branch Body temperature 2020-06-26 13:56:00 37.11 Sona Univ ersity of [place] [facility] Body weight 2020-06-26 13:56:00 99.791 kg Universi ty of [place] [facility] BMI 2020-06-26 13:56:00 33.45 kg/m2 Universi ty of [place] [facility] Systolic blood 2020-06-24 12:44:00 133 mm[Hg] Univer sity of pressure [place] [facility] Diastolic blood 2020-06-24 12:44:00 81 mm[Hg] Unive rsity of pressure [place] [facility] Heart rate 2020-06-24 12:44:00 71 /min Universi ty [facility] [place] [facility] Body temperature 2020-06-24 12:44:00 36.56 S[place] Univ ersity of [place] [facility] Respiratory rate 2020-06-24 12:44:00 16 /min Univ ersity of [place] [facility] Oxygen saturation in 2020-06-24 12:44:00 92 /min University of Arterial blood by [place] Pulse oximetry Branch Body height 2020-06-23 03:30:00 172.7 cm Universi ty [facility] Body weight 2020-06-23 03:30:00 90.719 kg Universi ty [facility] Medical [place] BMI 2020-06-23 03:30:00 30.41 kg/m2 Universi ty [facility] Body temperature 2020-01-19 11:07:00 36.17 [facility] 2020-01-19 11:07:00 18 /min [facility] O[facility] in 2020-01-19 11:07:00 96 /min [facility] Arterial blood by [facility] Pulse oximetry Branch Systolic blood 2020-01-19 11:07:00 139 mm[Hg] Univer sity of pressure [facility] Diastolic blood 2020-01-19 11:07:00 98 mm[Hg] Unive rsity of pressure [facility] Heart rate 2020-01-19 11:07:00 64 /min Universi ty [facility] Body height 2020-01-19 05:30:00 172.7 cm Universi ty [facility] Body weight 2020-01-19 05:30:00 91.491 kg Universi ty [facility] BMI 2020-01-19 05:30:00 30.67 kg/m2 [facility] BP Systolic 2022-08-05 08:23:00 144 mm[Hg] BP [...] US ABDOMEN LIMITED 2022-08-12 14:09:16 [facility], [facility] CONSENT/REFUSAL FOR 2022-08-12 13:30:26 Doctor Unassigned, No [facility]REATMENT Name [facility] ASSIGNMENT OF BENEFITS 2022-08-12 13:29:52 Doctor Unassigned, No [facility] XR HAND 3+ VW RIGHT 2021-01-21 15:30:47 Jose Angel Kate [facility] CONSENT/REFUSAL FOR 2021-01-21 14:42:20 Doctor Unassigned, No [facility] TREATMENT Name Medical Branch CT HEAD WO CONTRAST 2021-01-04 19:58:17 Milana Arreguin [facility] [place] LIPASE 2021-01-04 19:33:00 Milana Arreguin [facility] HEPATIC FUNCTION PANEL 2021-01-04 19:33:00 Milana [facility]reguin [facility] ([id number]) (ALB,T.PRO,BILI Medical Branch T,BU/BC,ALT,AST,ALK PHOS) BASIC METABOLIC PANEL 2021-01-04 19:33:00 Milana Arreguin Uni versity [facility] (NA, K, CL, CO2, Medical Branch GLUCOSE, BUN, CREATININE, CA) ETHANOL 2021-01-04 19:33:00 Milana Arreguin [facility] CBC WITH DIFF 2021-01-04 19:33:00 Milana Arreguin [facility] NOTICE OF PRIVACY 2021-01-04 19:03:20 Doctor Unassigned, No [facility] Medical Branch CONSENT/REFUSAL FOR 2021-01-04 19:02:40 Doctor Unassigned, No [facility] [place] [facility]NOSIS AND TREATMENT Name Medical Branch CT ABDOMEN PELVIS W 2020-06-28 22:27:07 Harsh Badillo [facility] CONTRAST Medical Branch URINALYSIS 2020-06-28 21:34:[address] [facility] LIPASE 2020-06-28 21:21:00 Harsh Badillo [facility] COMP. METABOLIC PANEL 2020-06-28 21:21:00 Harsh Badillo [facility] ([id number]) Medical Branch CBC WITH DIFF 2020-06-28 21:21:[address] [facility] NOTICE OF PRIVACY 2020-06-28 20:01:32 Doctor Unassigned, No [facility] PRACTICES Name Medical Branch CONSENT/REFUSAL FOR 2020-06-28 20:00:56 Doctor Unassigned, No [facility] [place] DIAGNOSIS AND TREATMENT Name Medical Branch CONSENT/REFUSAL FOR 2020-06-26 13:52:05 Doctor Unassigned, No [facility] [place] DIAGNOSIS AND TREATMENT Name Medical Branch COMP. METABOLIC PANEL 2020-06-24 08:57:00 Sin Rsamussen [facility] ([id number]) Medical Branch US ABDOMEN LIMITED 2020-06-24 00:05:32 Sin Rasmussen [facility] ADC / LCC - DRUG SCREEN 2020-06-23 11:38:00 [facility] TRIAGE Medical Branch MAGNESIUM 2020-06-23 10:51:00 [facility] o [facility] BASIC METABOLIC PANEL 2020-06-23 10:51:00 [facility] (NA, K, CL, CO2, [facility] GLUCOSE, BUN, CREATININE, CA) COVID-19 (ID NOW RAPID 2020-06-23 00:20:00 [facility] XR CHEST 1 VW 2020-06-23 00:07:39 Emigdio [facility] EKG-12 LEAD 2020-06-22 23:24:24 Emigdio [facility] PHOSPHORUS 2020-06-22 23:05:00 Emigdio [facility] MAGNESIUM 2020-06-22 23:05:00 [facility] TROP[facility]IN I 2020-06-22 23:05:00 Emigdio [facility] HEPATIC FUNCTION PANEL 2020-06-22 23:05:00 [facility] ([id number] (ALB,T.PRO,BILI [facility] T,BU/BC,ALT,AST,ALK PHOS) BASIC METABOLIC PANEL 2020-06-22 23:05:00 Binh Taveras [facility] (NA, K, CL, CO2, [facility] GLUCOSE, BUN, CREATININE, CA) ETHANOL 2020-06-22 23:05:00 Emigdio [facility] CBC WITH DIFF 2020-06-22 23:05:00 Emigdio [facility] URINALYSIS 2020-06-22 23:05:00 Emigdio [facility] N-TERMINAL PRO-BNP 2020-06-22 23:05:00 Emigdio [facility] EKG-12 LEAD 2020-06-22 22:57:51 Binh Taveras [facility] NOTICE OF PRIVACY 2020-06-22 22:36:32 Doctor Unassigned, No [facility] PRACTICES Name Medical Branch CONSENT/REFUSAL FOR 2020-06-22 22:36:16 Doctor Unassigned, No [facility] DIAGNOSIS AND TREATMENT Name Medical Branch COMP. METABOLIC PANEL 2020-01-19 10:18:00 Corwin [facility] ([id number]) Medical Branch ETHANOL 2020-01-19 10:18:00 Corwin [facility] CBC WITH DIFFERENTIAL 2020-01-19 10:18:00 Corwin [facility] HEPATITIS B SURFACE 2020-01-19 10:18:00 Corwin [facility] ANTIBODY [facility] HEPATITIS B SURFACE 2020-01-19 10:18:00 Corwin [facility] ANTIGEN [facility] HCV ANTIBODY 2020-01-19 10:18:00 Corwin [facility] HEPATITIS B CORE 2020-01-19 10:18:00 Corwin [facility] ANTIBODY IGM [facility] HAV ANTIBODY (IGG AND 2020-01-19 10:18:00 Corwin [facility] IGM) [facility] EKG-12 LEAD 2020-01-19 05:28:07 Corwin [facility] EKG-12 LEAD 2020-01-18 23:25:58 Mikhail [facility] ADC / LCC - DRUG SCREEN 2020-01-18 23:23:00 Jeremias Elizondo [facility] TRIAGE [facility] CREATINE KINASE 2020-01-18 23:07:00 Corwin [facility] TROPONIN I 2020-01-18 23:07:[address] [facility] THYROID STIMULATING 2020-01-18 23:07:00 Corwin roney [facility] HORMONE Medical Branch COMP. METABOLIC PANEL 2020-01-18 23:07:00 Jeremias Elizondo [facility] ([id number]) Medical Branch ETHANOL 2020-01-18 23:07:[address] [facility] CBC WITH DIFFERENTIAL 2020-01-18 23:07:00 Jeremias [facility] GLYCOSYLATED HEMOGLOBIN 2020-01-18 23:07:00 Dora Olivia [facility] (A1C) [facility] HIV 1/2 AG-AB WITH 2020-01-18 23:07:00 Dora Olivia [facility] REFLEX [facility] EKG-12 LEAD 2020-01-18 23:06:24 Jeremias Elizondo Tracy o f [facility] CONSENT/REFUSAL FOR 2020-01-18 22:29:16 Doctor Unassigned, No Un [facility] DIAGNOSIS AND TREATMENT Name Medical Branch Plan of Care Planned Activity Planned Date Details Comments Source Goal Plan of Care Note [code = 64000-2] Goal Plan of Care Note [code = 33029-9] Goal Plan of Care Note [code = 15823-1] Goal Plan of Care Note [code = 09957-4] Goal Plan of Care Note [code = 73567-7] Goal Plan of Care Note [code = 29428-7] Goal Plan of Care Note [code = 32548-8] Goal Plan of Care Note [code = 07783-6] Goal Plan of Care Note [code = 18078-5] Goal Plan of Care Note [code = 17679-1] Goal Plan of Care Note [code = 62047-0] Goal Plan of Care Note [code = 59137-3] Goal Plan of Care Note [code = 34021-8] Goal Plan of Care Note [code = 63024-5] Goal Plan of Care Note [code = 62520-4] Goal Plan of Care Note [code = 79487-9] Goal Plan of Care Note [code = 32314-3] Goal Plan of Care Note [code = 33863-3] Goal Plan of Care Note [code = 38540-8] Goal Plan of Care Note [code = 54411-1] Goal Plan of Care Note [code = 29069-3] Goal Plan of Care Note [code = 39497-5] Goal Plan of Care Note [code = 47953-1] Goal Plan of Care Note [code = 86415-1] Goal Plan of Care Note [code = 78014-5] Goal Plan of Care Note [code = 85864-8] Goal Plan of Care Note [code = 00881-6] Goal Plan of Care Note [code = 33491-2] Goal Plan of Care Note [code = 81763-2] Goal Plan of Care Note [code = 12360-8] Goal Plan of Care Note [code = 91985-1] Goal Plan of Care Note [code = 08171-9] Goal Plan of Care Note [code = 84388-0] Goal Plan of Care Note [code = 90919-1] Goal Plan of Care Note [code = 94095-8] Goal Plan of Care Note [code = 42986-2] Goal Plan of Care Note [code = 68241-5] Goal Plan of Care Note [code = 07760-5] Goal Plan of Care Note [code = 35241-4] Goal Plan of Care Note [code = 85664-6] Goal Plan of Care Note [code = 06661-9] Goal Plan of Care Note [code = 54299-0] Goal Plan of Care Note [code = 91008-2] Goal Plan of Care Note [code = 33486-7] Goal Plan of Care Note [code = 86906-3] Goal Plan of Care Note [code = 72214-3] Encounters Start End Encounter Admission Attending Care Care Encounter Source Date/Time Date/Time Type Type Clinicians Facility Department ID 2021-09-20 Emergency [facility] [id number] Univers 02:44:15 ity of [facility] 2023-08-18 2023-08-18 Outpatient SFA SFA [id number] Saleem 09:44:31 09:44:31 0928 F Bumpass 2023-05-20 2023-05-20 Outpatient SFA SFA [id number] Saleem 14:00:08 14:00:08 0630 F Smith 2023-02-02 2023-02-02 Outpatient SFA SFA [id number] Saleem 09:05:12 09:05:12 0315 F Smith 2022-11-09 2022-11-09 Outpatient SFA SFA [id number] Saleem 10:37:35 10:37:35 1220 F Smith 2022-09-06 2022-09-06 Outpatient SFA SFA [id number] Saleem 12:56:10 12:56:10 1017 F Smith 2022-08-12 2022-08-12 Outpatient R RADIOLOGY [facility] RAD [id number] Univers 08:32:30 23:59:00 ity of [facility] 2022-08-12 2022-08-12 Hospital Radiology [facility] 1.2.840.114 [id number] [facility] 08:32:30 23:59:00 Encounter ANGLEKALEE 350.1.13.10 ity of [place] 4.2.7.2.686 [place] [id number] [facility] [address] [place] 2022-08-05 2022-08-05 Outpatient [id number]- [id number] 0c [id number] 00:00:00 00:00:00 Visit 35ab-4b63 5ab-4b63-a -g359-639 682-4890a5 9y1487jr2 497bb9 2022-07-26 2022-07-26 Outpatient [id number] 00:00:00 00:00:00 Visit 5140-4cb7 140-4cb7-a -y1z9-y20 5g7-h374g7 0z210fo13 db18 2022-06-29 2022-06-29 Outpatient d0tva669- [id number] jyv066-8 00:00:00 00:00:00 Visit 053d-4efe 53d-4efe-8 -83ff-e2a 3ff-e2a5c0 7e938ll01 58eb08 2022-06-11 2022-06-11 Outpatient 8mbmc9l1- [id number] 0e vyi0c3-0 00:00:00 00:00:00 Visit 28af-46f6 8af-46f6-a -k07k-230 66d-4312a6 6u5p53i47 f50e85 2021-02-23 2021-02-23 Outpatient Kristie WATSON [facility] [id number] Univers 14:45:00 14:45:00 STEFANI ity of [facility] 2021-02-23 2021-02-23 Telephone Justin [facility] 1.2.840.114 [id number] Univers 00:00:00 00:00:00 Chapincito Peraza 350.1.13.10 it y of Surgical 4.2.7.2.686 [place] as Specialti [phone] Me dical es 198 [facility] 2021-02-09 2021-02-09 Patient Catracho [facility] 1.2.840.114 [id number] Univers 00:00:00 00:00:00 Outreach Mahad CRESPO 350.1.13.10 i [facility] 4.2.7.2.686 [place] [phone] Me dical [address] [place] 2021-01-22 2021-01-22 Office Shirley [facility] 1.2.840.114 [id number] Univers 10:16:48 10:31:48 Visit Stefani Soriano [facility] [id number] it y of Surgical 4.2.7.2.686 [place] Specialti [phone] Me dical es 198 [facility] 2021-01-22 2021-01-22 [facility] [id number] Univers 10:15:00 10:15:00 STEFANI ity [facility] 2021-01-21 2021-01-21 Emergency Singer [facility] [id number] Univers 08:52:00 10:40:00 Jose Angel Jermaine 350.1.13.10 i ty of [place]2.7.2.686 [place] [phone] [facility] [address] [place] 2021-01-21 2021-01-21 Laboratory Lab, Adc Fam Pob I [facility] 1.2. 840.114 [id number] Univers 08:29:38 08:49:38 Only Malorie [facility] 350.1.13.10 ity of [place] 4.2.7.2.686 Twan as Professio [phone] Me dical nal [address] [place] [address] [employer] 2021-01-21 2021-01-21 Outpatient R [facility] [id number] Univers 08:20:00 08:20:00 ity of [facility] 2021-01-21 2021-01-21 Letter Doctor MARIA DOLORES 1.2.840.114 [id number] Univers 00:00:00 00:00:00 (Out) Unassigned, RICHARD [id number] ity of [facility] 4.2.7.2.686 Twan as [phone] [facility] [address] [place] 2021-01-04 2021-01-04 Emergency [facility] 1.2.840.114 [id number] Univers 13:09:00 18:00:00 Milana Dean 350.1.13.10 ity of [place] 4.2.7.2.686 [facility] [phone] [place] [address] [place] 2021-01-04 2021-01-04 Emergency [facility] [id number] Univers 13:09:00 13:09:00 MILANA ity of [facility] 2020-06-28 2020-06-28 [facility] [id number] Univers 15:14:00 20:34:00 Harsh S Jermaine 350.1.13.10 i ty of [place] 4.2.7.2.686 [facility] [phone] [address] 2020-06-28 2020-06-28 Emergency [facility] [id number] Univers 15:01:00 15:01:00 HARSH ity of [facility] 2020-06-28 2020-06-28 Orders Doctor WHITTEN 1.2.840.114 [id number] Univers 00:00:00 00:00:00 Only Unassigned, RICHARD 350.1.13.10 ity of [facility] 4.2.7.2.686 Twan as [phone] [facility] [address] [place] 2020-06-26 2020-06-26 Emergency [facility] [id number] [id number] Univers 09:01:00 10:58:00 Jose Angel Dean 350.1.13.10 i ty of [place] 4.2.7.2.686 [facility] [id number] [address] 2020-06-26 2020-06-26 Emergency X [facility] ERT [id number] Univers 08:52:00 08:52:00 ity of [facility] 2020-06-25 2020-06-25 Transition Chito Nassar 1.2.840.114 [id number] Univers 00:00:00 00:00:00 of Care Patricia Calix 350.1.13.10 i ty of [place] 4[place]2.7.2.686 [place] [phone] [facility] [address] Branch 2020-06-22 2020-06-24 [facility] Binh Taveras [facility] 1.2.840. 114 [id number] Univers 17:49:00 11:00:00 Encounter Valarie Felder 350.1.13.10 ity of [place] 4.2.7.2.686 [place] [phone] [address] 2020-06-22 2020-06-22 Emergency X [facility] ERT [id number] Univers 17:38:00 17:38:00 [facility] 2020-06-22 2020-06-22 Orders Doctor WHITTEN 1.2.840.114 [id number] Univers 00:00:00 00:00:00 Only Unassigned, RICHARD 350.1.13.10 ity of [place] [facility] 4.2.7.2.686 Twan as [phone] [place] [address] Branch 2020-01-21 2020-01-21 Transition Chito Roberts 1.2.840.114 [id number] Univers 00:00:00 00:00:00 of Care Mickie Calix 350.1.13.10 ity of [place]2.7.2.686 [place] [phone] [address] 2020-01-18 2020-01-19 [facility] Mikhail [facility] 1.2.840.1 [id number] Univers 16:59:04 13:32:00 Encounter Dora Olivia 350.1.13.10 ity of [place] 4.2.7.2.686 [place] [id number] [address] 2020-01-18 2020-01-18 Emergency X [facility] ERT [id number] Univers 16:59:04 16:59:04 [facility] Results Test Description Test Time Test Comments Results Result Comments Source LIPID PANEL 2023-05-21 06:33:29 Test Item Value Reference Range Interpretation Comme nts CHOLESTEROL (test code = 2210) 219 MG/DL <200 H TRIGLYCERIDES (test code = 2232) 121 MG/DL <150 HDL CHOLESTEROL (test code = 38 MG/DL >39 L 2220) CALC LDL CHOL (test code = 2237) 157 MG/DL <100 H NOTE: CALCULATED LDL IS BASED ON MIKHAIL-VELIZ METHOD WHICHINCLUDES A DJUSTABLE TRIGLYCERIDE:VL DL CHOLESTEROL RATIO.THIS FACT OR VARIES BY MEASURED TRIGLY CERIDE AND NON-HDLCHOLESTE ROL CONCENTRATIONS WITH INCREASED CALCULATED LDL SEENIN HIGHER T RIGLYCERIDE OR LOWER NON-HDL S PECIMENS. FOR MOREINFORMATION , SEE CLIENT ANNOUNCEMENT AT [email or web address] LDL/HDL (test code = 4.13 RATIO <3.55 H UNLESS OTHERWISE INDICATED, ALL 2238) TESTING PERFORM ED AT [facility]ICAL [facility], [facility]. [address] [place] [address] LABORATORY DIRE CTOR: Caryn BOBO EASTON NUMBER [id number] [place]. [id number] HEPATIC FUNCTION [id number] 06:33:29 Test Item Value Reference Range Interpretation Comments PROTEIN, TOTAL (test 7.1 G/DL 6.1-8.3 code = 2228) ALBUMIN (test code = 4.5 G/DL 3.5-5.2 2200) BILIRUBIN, TOTAL (test 0.6 MG/DL See_Comment [Aut omated message] code = 2207) The system [employer] generated this result transmitted ref erence range: <=1.2. T he reference range was not used to int erpret this result as normal/abnormal . BILIRUBIN, DIRECT 0.2 MG/DL 0.0-0.3 (test code = 2021) ALKALINE PHOSPHATASE 128 U/L 40-117 H (test code = 2204) AST (test code = 2218) 117 U/L 9-50 H ALT (test code = 2219) 69 U/L 5-50 H LIPID [id number] 06:06:02 Test Item Value Reference Range Interpretation Comments CHOLESTEROL (test 263 MG/DL <200 H code = 2210) TRIGLYCERIDES (test 171 MG/DL <150 H code = 2232) HDL CHOLESTEROL (test 38 MG/DL >39 L code = 2220) CALC LDL CHOL (test 191 MG/DL <100 H NOTE: C ALCULATED LDL code = 2237) IS BASED ON MIKHAIL-VELIZ METHOD WHICHINCLUDES ADJUSTABLE TRIGLYCERIDE:VL DL CHOLESTEROL RAT IO.THIS FACTOR VARIES B Y MEASURED TRIGLY CERIDE AND NON-HDLCHOL ESTEROL CONCENTRATIONS WITH INCREASED CALCU LATED LDL SEENIN HIGH ER TRIGLYCERIDE OR LOWER NON-HDL SPECIME NS. FOR MOREINFORMATION , SEE CLIENT ANNOUNCE MENT AT [email or web address] RATIO LDL/HDL 5.03 RATIO <3.55 H (test code = 2238) COMPREHENSIVE METABOLIC [id number] 06:06:02 Test Item Value Reference Range Interpretation Comments GLUCOSE (test code = 129 MG/DL 70-99 H 2216) BUN (test code = 8 MG/DL 6-20 2207) CREATININE (test 0.57 MG/DL 0.80-1.40 L code = 221) eGFR (2020 CKD-EPI) 128 >60 (test code = 64978) ML/MIN/1.73 CALC BUN/CREAT (test 14 RATIO 6-28 code = 2235) SODIUM (test code = 139 MEQ/L 838-501 9421) POTASSIUM (test code 4.4 MEQ/L 3.5-5.4 = 2227) CHLORIDE (test code 102 MEQ/L 95-107 = 2214) CARBON DIOXIDE (test [...] PHOSPHATASE 101 U/L 40-117 (test code = 2204) AST (test code = 201 U/L 9-50 H 2218) ALT (test code = 128 U/L 5-50 H CPL leung s 2218) important patho logy staff changes effective 01/19. New patholo gy staff will prov niko uninterrupted, excellent patie nt care and clinic al consultation. S ee URL: [email or web address]. UNLE SS OTHERWISE INDIC ATED, ALL TESTING PER FORMED AT CLINICAL [facility] [employer], [facility]. [address] [facility] [place] [address] [facility] DIRECTOR: Caryn WEI EASTON NUMBER [id number] CAP ACCREDITATION N O. [id number] COMPREHENSIVE METABOLIC [id number] 03:35:07 Test Item Value Reference Range Interpretation Comments GLUCOSE (test code = 105 MG/DL 70-99 H 2216) BUN (test code = 7 MG/DL 6-20 2207) CREATININE (test 0.64 MG/DL 0.80-1.40 L code = 2214) eGFR (2020 CKD-EPI) 123 >60 (test code = 96333) ML/MIN/1.73 CALC BUN/CREAT (test 11 RATIO 6-28 code = 2235) SODIUM (test code = 141 MEQ/L 027-901 9743) POTASSIUM (test code 4.8 MEQ/L 3.5-5.4 = 2228) CHLORIDE (test code 103 MEQ/L 95-107 = 2215) CARBON DIOXIDE (test 23 MEQ/L 19-31 code = 2206) CALCIUM (test code = 9.2 MG/DL 8.5-10.5 [...] (test code = 137 U/L 9-50 H 8) ALT (test code = 115 U/L 5-50 H UNLESS OTH ERWISE 9) INDICATED, ALL TESTING PERFORM ED ATCLINICAL PATH OLOGY LABORATORIES, I MD. [address] [place] [address] [facility] DIRECTOR: PRISCA HERNANDEZ M.D. CLIA NUMBER [id number] CAP ACCREDITATION N O. [id number] HEPATITIS PANEL, [id number] 06:55:10 Test Item Value Reference Range Interpretation Comments HEPATITIS A IgM (test NON-REACTIVE NON-REACTIVE code = 38668) HEPATITIS B CORE IgM NON-REACTIVE NON-REACTIVE (test code = 4644) HEPATITIS B SURF AG NON-REACTIVE NON-REACTIVE (test code = 2739) HEPATITIS C ANTIBODY NON-REACTIVE NON-REACTIVE (test code = 4675) INTERPRETATION (NOTE) Hepatitis A HEPATITIS A: (test serology shows no code = 2552) evidence of acu te hepatitis A. INTERPRETATION (NOTE) Hepatitis B HEPATITIS B: (test serology shows no code = 26006) evidence of ac [place] hepatitis B and no indication of exposure to hepatitis B vir us in the previous si xto eight months. INTERPRETATION (NOTE) Hepatitis C HEPATITIS C: (test serology shows no code = 64635) evidence of ex posure to hepatitisC v irus at this time. I t can take up to 12 m onths after exposure tothe hepatitis C vir us for antibodies to become detectab le in the blood in ce rtain patients. UNLES S OTHERWISE INDIC ATED, ALL TESTING PERFORMED ATC NICAL PATHOLOGY LABORATORIES, I MD. [address] [facility] [place] [address] DELVIN PHILLIPS DIRECTOR: PRISCA HERNANDEZ M.D. CLIA NUMBER [id number] [place] [id number] HEMOGLOBIN [id number] 06:25:42 Test Item Value Reference Range Interpretation Comments HEMOGLOBIN A1c (test code = 07089) 6.0 % 4.2-5.6 H COMPREHENSIVE METABOLIC [id number] 06:24:21 Test Item Value Reference Range Interpretation Comments GLUCOSE (test code = 104 MG/DL 70-99 H 2216) BUN (test code = 7 MG/DL 6-20 2207) CREATININE (test 0.68 MG/DL 0.80-1.40 L code = 2213) eGFR (2020 CKD-EPI) 122 >60 (test code = 70786) ML/MIN/1.73 CALC BUN/CREAT (test 10 RATIO 6-28 code = 223) SODIUM (test code = 140 MEQ/L 582-451 2755) POTASSIUM (test code 4.3 MEQ/L 3.5-5.4 = 2227) CHLORIDE (test code 101 MEQ/L 95-107 = 2214) CARBON DIOXIDE (test 22 MEQ/L 19-31 code = 2205) CALCIUM (test code = 9.6 MG/DL 8.5-10.5 2208) PROTEIN, TOTAL (test 7.1 G/DL 6.1-8.3 code = 2228) ALBUMIN (test code = 4.2 G/DL 3.5-5.2 2200) CALC GLOBULIN (test 2.9 G/DL 1.9-3.7 code = 2239) CALC A/G RATIO (test 1.4 RATIO 1.0-2.6 code = 2233) BILIRUBIN, TOTAL 0.6 MG/DL See_Comment [Automated message] (test code = 2206) The syste m which generated this result transmit charli reference range : <=1.2. The refe rence range was not u sed to interpret th is result as normal/abnormal . ALKALINE PHOSPHATASE 102 U/L 40-117 (test code = 220) AST (test code = 170 U/L 9-50 H 2217) ALT (test code = 98 U/L 5-50 H 2218) LIPID [id number] 06:24:21 Test Item Value Reference Range Interpretation [...] MOREINFORMATION , SEE CLIENT ANNOUNCE MENT AT [email or web address] LDL/HDL 5.73 RATIO <3.55 H UNLESS O THERWISE (test code = 2238) INDICATED , ALL TESTING PERFORMED [facility], [facility]. [address] [place] [address] [facility] DIRECTOR: PRISCA HERNANDEZ M.D. [place] NUMBER [id number] CAP ACCREDITATION N O. [id number] COMPREHENSIVE METABOLIC [id number] 00:00:00 Test Item Value Reference Range Interpretation Comments GLUCOSE (test code = 7) 104 MG/DL BUN (test code = 2208) 7 MG/DL CREATININE (test code = 2214) 0.68 MG/DL eGFR (2020 CKD-EPI) (test 122 ML/MIN/1.73 code = 82698) CALC BUN/CREAT (test code = 10 RATIO [...] A/G RATIO (test code = 1.4 RATIO 2233) BILIRUBIN, TOTAL (test code = 0.6 MG/DL 2206) ALKALINE PHOSPHATASE (test 102 U/L code = 2204) AST (test code = 2218) 170 U/L ALT (test code = 2219) 98 U/L COMPREHENSIVE METABOLIC [id number] 00:00:00 Test Item Value Reference Range Interpretation Comments GLUCOSE (test code = 2217) 104 MG/DL BUN (test code = 2208) 7 MG/DL CREATININE (test code = 2214) 0.68 MG/DL eGFR (2020 CKD-EPI) (test 122 ML/MIN/1.73 code = 64517) CALC BUN/CREAT (test code = 10 RATIO [...] A/G RATIO (test code = 1.4 RATIO 2233) BILIRUBIN, TOTAL (test code = 0.6 MG/DL 2206) ALKALINE PHOSPHATASE (test 102 U/L code = 2204) AST (test code = 2218) 170 U/L ALT (test code = 2219) 98 U/L LIPID [id number] 00:00:00 Test Item Value Reference Range Interpretation Comments CHOLESTEROL (test code = 2210) 235 MG/DL TRIGLYCERIDES (test code = 2232) 173 MG/DL HDL CHOLESTEROL (test code = 2220) 30 MG/DL CALC LDL CHOL (test code = 2237) 172 MG/DL RISK RATIO LDL/HDL (test code = 5.73 RATIO 2238) LIPID [id number] 00:00:00 Test Item Value Reference Range Interpretation Comments CHOLESTEROL (test code = 2210) 235 MG/DL TRIGLYCERIDES (test code = 2232) 173 MG/DL HDL CHOLESTEROL (test code = 2220) 30 MG/DL CALC LDL CHOL (test code = 2237) 172 MG/DL RISK RATIO LDL/HDL (test code = 5.73 RATIO 2238) CBC W/AUTO [id number] 00:00:00 Test Item Value Reference Range Interpretation [...] NUCLEATED RBCS (test code = 0.00 K/UL 81905) CBC W/AUTO [id number] 00:00:00 Test Item Value Reference Range Interpretation [...] NUCLEATED RBCS (test code = 0.00 K/UL 02938) HEMOGLOBIN [id number] 00:00:00 Test Item Value Reference Range Interpretation Comments HEMOGLOBIN A1c (test code = 93909) 5.5 % HEMOGLOBIN [id number] 00:00:00 Test Item Value Reference Range Interpretation Comments HEMOGLOBIN A1c (test code = 36045) 5.5 % LIPID [id number] 00:00:00 Test Item Value Reference Range Interpretation Comments CHOLESTEROL (test code = 2210) 246 MG/DL TRIGLYCERIDES (test code = 2232) 347 MG/DL HDL CHOLESTEROL (test code = 2220) 47 MG/DL CALC LDL CHOL (test code = 2237) 146 MG/DL RISK RATIO LDL/HDL (test code = 3.11 RATIO 2238) COMPREHENSIVE METABOLIC [id number] 00:00:00 Test Item Value Reference Range Interpretation Comments GLUCOSE (test code = 2217) 116 MG/DL BUN (test code = 2208) 10 MG/DL CREATININE (test code = 2214) 0.79 MG/DL eGFR AMER. (test code 133 ML/MIN/1.73 = 61781) eGFR NON- AMER. (test 115 ML/MIN/1.73 code = 19772) CALC BUN/CREAT (test code = 13 RATIO [...] (test code = 2219) 124 U/L IRON, [id number] 00:00:00 Test Item Value Reference Range Interpretation Comments IRON, SERUM (test code = 2222) 129 UG/DL CBC W/AUTO [id number] 00:00:00 Test Item Value Reference Range Interpretation [...] NUCLEATED RBCS (test code = 0.00 K/UL 66710) CBC W/AUTO [id number] 00:00:00 Test Item Value Reference Range Interpretation [...] NUCLEATED RBCS (test code = 0.00 K/UL 35796) CBC W/AUTO [id number] 00:00:00 Test Item Value Reference Range Interpretation [...] NUCLEATED RBCS (test code = 0.00 K/UL 86133) HEMOGLOBIN [id number] 00:00:00 Test Item Value Reference Range Interpretation Comments HEMOGLOBIN A1c (test code = 23829) 5.5 % HEMOGLOBIN [id number] 00:00:00 Test Item Value Reference Range Interpretation Comments HEMOGLOBIN A1c (test code = 40747) 5.5 % HEMOGLOBIN [id number] 00:00:00 Test Item Value Reference Range Interpretation Comments HEMOGLOBIN A1c (test code = 57471) 5.5 % LIPID [id number] 00:00:00 Test Item Value Reference Range Interpretation Comments CHOLESTEROL (test code = 2210) 246 MG/DL TRIGLYCERIDES (test code = 2232) 347 MG/DL HDL CHOLESTEROL (test code = 2220) 47 MG/DL CALC LDL CHOL (test code = 2237) 146 MG/DL RISK RATIO LDL/HDL (test code = 3.11 RATIO 2238) LIPID [id number] 00:00:00 Test Item Value Reference Range Interpretation Comments CHOLESTEROL (test code = 2210) 246 MG/DL TRIGLYCERIDES (test code = 2232) 347 MG/DL HDL CHOLESTEROL (test code = 2220) 47 MG/DL CALC LDL CHOL (test code = 2237) 146 MG/DL RISK RATIO LDL/HDL (test code = 3.11 RATIO 2238) COMPREHENSIVE METABOLIC [id number] 00:00:00 Test Item Value Reference Range Interpretation Comments GLUCOSE (test code = 2217) 116 MG/DL BUN (test code = 2208) 10 MG/DL CREATININE (test code = 2214) 0.79 MG/DL eGFR AMER. (test code 133 ML/MIN/1.73 = 00337) eGFR NON- AMER. (test 115 ML/MIN/1.73 code = 18051) CALC BUN/CREAT (test code = 13 RATIO [...] code = 2219) 124 U/L COMPREHENSIVE METABOLIC [id number] 00:00:00 Test Item Value Reference Range Interpretation Comments GLUCOSE (test code = 2217) 116 MG/DL BUN (test code = 2208) 10 MG/DL CREATININE (test code = 2214) 0.79 MG/DL eGFR AMER. (test code 133 ML/MIN/1.73 = 89094) eGFR NON- AMER. (test 115 ML/MIN/1.73 code = 25144) CALC BUN/CREAT (test code = 13 RATIO [...] (test code = 2219) 124 U/L IRON, [id number] 00:00:00 Test Item Value Reference Range Interpretation Comments IRON, SERUM (test code = 2222) 129 UG/DL IRON, [id number] 00:00:00 Test Item Value Reference Range Interpretation Comments IRON, SERUM (test code = 2222) 129 UG/DL CBC W/AUTO [id number] 00:00:00 Test Item Value Reference Range Interpretation [...] NUCLEATED RBCS (test code = 0.00 K/UL 25223) CBC W/AUTO [id number] 00:00:00 Test Item Value Reference Range Interpretation [...] NUCLEATED RBCS (test code = 0.00 K/UL 98111) CBC W/AUTO [id number] 00:00:00 Test Item Value Reference Range Interpretation [...] NUCLEATED RBCS (test code = 0.00 K/UL 63146) CBC W/AUTO [id number] 00:00:00 Test Item Value Reference Range Interpretation [...] NUCLEATED RBCS (test code = 0.00 K/UL 67221) HEMOGLOBIN [id number] 00:00:00 Test Item Value Reference Range Interpretation Comments HEMOGLOBIN A1c (test code = 57974) 5.5 % HEMOGLOBIN [id number] 00:00:00 Test Item Value Reference Range Interpretation Comments HEMOGLOBIN A1c (test code = 00942) 5.5 % HEMOGLOBIN [id number] 00:00:00 Test Item Value Reference Range Interpretation Comments HEMOGLOBIN A1c (test code = 68011) 5.5 % LIPID [id number] 00:00:00 Test Item Value Reference Range Interpretation Comments CHOLESTEROL (test code = 2210) 246 MG/DL TRIGLYCERIDES (test code = 2232) 347 MG/DL HDL CHOLESTEROL (test code = 2220) 47 MG/DL CALC LDL CHOL (test code = 2237) 146 MG/DL RISK RATIO LDL/HDL (test code = 3.11 RATIO 2238) CBC W/AUTO [id number] 00:00:00 Test Item Value Reference Range Interpretation [...] NUCLEATED RBCS (test code = 0.00 K/UL 26208) LIPID [id number] 00:00:00 Test Item Value Reference Range Interpretation Comments CHOLESTEROL (test code = 2210) 246 MG/DL TRIGLYCERIDES (test code = 2232) 347 MG/DL HDL CHOLESTEROL (test code = 2220) 47 MG/DL CALC LDL CHOL (test code = 2237) 146 MG/DL RISK RATIO LDL/HDL (test code = 3.11 RATIO 2238) COMPREHENSIVE METABOLIC [id number] 00:00:00 Test Item Value Reference Range Interpretation Comments GLUCOSE (test code = 2217) 116 MG/DL BUN (test code = 2208) 10 MG/DL CREATININE (test code = 2214) 0.79 MG/DL eGFR AMER. (test code 133 ML/MIN/1.73 = 04371) eGFR NON- AMER. (test 115 ML/MIN/1.73 code = 94485) CALC BUN/CREAT (test code = 13 RATIO [...] ALKALINE PHOSPHATASE (test 74 U/L code = 220) AST (test code = 2218) 121 U/L ALT (test code = 2219) 124 U/L COMPREHENSIVE METABOLIC [id number] 00:00:00 Test Item Value Reference Range Interpretation Comments GLUCOSE (test code = 2217) 116 MG/DL BUN (test code = 2208) 10 MG/DL CREATININE (test code = 2214) 0.79 MG/DL eGFR AMER. (test code 133 ML/MIN/1.73 = 16436) eGFR NON- AMER. (test 115 ML/MIN/1.73 code = 41717) CALC BUN/CREAT (test code = 13 RATIO [...] (test code = 2219) 124 U/L IRON, [id number] 00:00:00 Test Item Value Reference Range Interpretation Comments IRON, SERUM (test code = 222) 129 UG/DL IRON, [id number] 00:00:00 Test Item Value Reference Range Interpretation Comments IRON, SERUM (test code = 2222) 129 UG/DL HEMOGLOBIN [id number] 00:00:00 Test Item Value Reference Range Interpretation Comments HEMOGLOBIN A1c (test code = 70525) 5.5 % HEMOGLOBIN [id number] 00:00:00 Test Item Value Reference Range Interpretation Comments HEMOGLOBIN A1c (test code = 91039) 5.5 % LIPID [id number] 00:00:00 Test Item Value Reference Range Interpretation Comments CHOLESTEROL (test code = 2210) 246 MG/DL TRIGLYCERIDES (test code = 2232) 347 MG/DL HDL CHOLESTEROL (test code = 2220) 47 MG/DL CALC LDL CHOL (test code = 2237) 146 MG/DL RISK RATIO LDL/HDL (test code = 3.11 RATIO 2237) COMPREHENSIVE METABOLIC [id number] 00:00:00 Test Item Value Reference Range Interpretation Comments GLUCOSE (test code = 2217) 116 MG/DL BUN (test code = 2208) 10 MG/DL CREATININE (test code = 2214) 0.79 MG/DL eGFR AMER. (test code 133 ML/MIN/1.73 = 65075) eGFR NON- AMER. (test 115 ML/MIN/1.73 code = 75997) CALC BUN/CREAT (test code = 13 RATIO 2235) SODIUM (test code = 2231) 141 MEQ/L POTASSIUM (test code = 2228) 4.2 MEQ/L CHLORIDE (test code = 2215) 102 MEQ/L CARBON DIOXIDE (test code = 24 MEQ/L 2205) CALCIUM (test code = 220) 9.6 MG/DL PROTEIN, TOTAL (test code = 7.3 G/DL 2228) ALBUMIN (test code = 2200) 4.8 G/DL CALC GLOBULIN (test code = 2.5 G/DL 2239) CALC A/G RATIO (test code = 1.9 RATIO 2233) BILIRUBIN, TOTAL (test code = 0.4 MG/DL 2206) ALKALINE PHOSPHATASE (test 74 U/L code = 2204) AST (test code = 2218) 121 U/L ALT (test code = 2219) 124 U/L IRON, [id number] 00:00:00 Test Item Value Reference Range Interpretation Comments IRON, SERUM (test code = 2222) 129 UG/DL XR HAND 3+ VW [id number] 15:35:56HISTORY: ?Pain. FINDINGS: AP, lateral, oblique views [...] along thebase ofterminal phalanx of right middle finger.[facility] [id number] 20:24:[address] examination of the brain. [...] reviewed this study and agree with the abovereport.[facility] HospitalETHANOL2021-[facility] 20:07:00 Test Item Value Reference Range Interpretation Comments ALCOHOL (test code = <10 mg/dL 9020427029) LILLIE (test code = LILLIE) <10 [id number] Toxic>100 Depression of MASTER [employer]OL ENGINEER>400 Fatalities Reported [facility] (NA, K, CL, CO2, GLUCOSE, BUN, CREATININE, CA)2021-01-04 20:02:00 Test Item Value Reference Range Interpretation Comments NA (test code = 139 mmol/L 135-145 5333263842) K (test code = 4.2 mmol/L 3.5-5 5891620545) CL (test code = 106 mmol/L 98-108 5044907739) CO2 TOTAL (test code = 24 mmol/L 23-31 4599906161) AGAP (test code = 2-16 2524965144) BUN (test code = 7 mg/dL 7-23 3984624089) GLUCOSE (test code = 107 mg/dL 70-110 9605687419) CREATININE (test code = 0.54 mg/dL 0.6-1.25 L 7407281690) CALCIUM (test code = 9.4 mg/dL 8.6-10.6 2440833677) eGFR Calculation mL/min/1.73m2 (Non-) (test code = 7138185210) eGFR Calculation mL/min/1.73m2 () (test code = 0300007560) LILLIE (test code = LILLIE) Association of [...] tests). Lab Interpretation Abnormal (test code = 25315-4) [facility]Hep[facility] (ALB, T.PRO, BILI T, BU/BC, ALT, AST, ALK PHOS)2021-01-04 20:02:00 Test Item Value Reference Range Interpretation Comments TOTAL BILI (test code = 1096791839) 0.7 mg/dL 0.1-1.1 BILI UNCON (test code = 5639680142) 0.5 mg/dL 0.1-1.1 BILI CONJ (test code = 1869030641) 0.0 mg/dL 0-0.3 T PROTEIN (test code = 5357184758) 8.2 g/dL 6.3-8.2 ALBUMIN (test code = 7955537637) 5.0 g/dL 3.5-5 ALK PHOS (test code = 2139245951) 80 U/L 34-122 ALTv (test code = 1742-6) 39 U/L 5-50 AST(SGOT) (test code = 5204601959) 44 U/L 13-40 H Lab Interpretation (test code = Abnormal 80023-5) [facility] HospitalLipase [id number] 20:01:00 Test Item Value Reference Range Interpretation Comments LIPASE (test code = 1499087500) 37 U/L 0-220 Lab Interpretation (test code = Normal 51538-9) [facility] HospitalCBC with [id number] 19:49:00 Test Item Value Reference Range Interpretation Comments WBC (test code = See_Comment [Automated 1373-2) message] The sy stem which generated this result transmitted reference range : 4.20 - 10.70 10*3/?L. The reference range was not used to interpret this result as normal/abnormal . RBC (test code = See_Comment [Automated 595-8) message] The sy stem which generated this [...] RDW-SD (test code = 39.9 fL 38.5-51.6 67674-9) RDW-CV (test code = 12.3 % 12.1-15.4 788-0) PLT (test code = See_Comment [Automated 967-3) message] The sy stem which generated this result transmitted reference range : 150 - 328 10*3/ ?L. The reference r betzy was not used to interpret this result as normal/abnormal . MPV (test code = 8.3 fL 9.8-13 L 35129-5) NRBC/100 WBC (test See_Comment [Automat ed code = 2981578327) message] The system which generated this result transmitted reference range : 0.0 - 10.0 /100 WBCs. The refer ence range was not u sed to interpret th is result as normal/abnormal . NRBC x10^3 (test code <0.01 See_Comment [Auto mated = 2654298890) message] The s ystem which generated this result transmitted reference range : 10*3/?L. The reference range was not used to interpret this result as normal/abnormal . GRAN MAT (NEUT) % 77.1 % (test code = 770-8) IMM GRAN % (test code 0.70 % = 4885530259) LYMPH % (test code = 13.3 % 736-9) MONO % (test code = 8.3 % 5905-5) EOS % (test code = 0.3 % 713-8) BASO % (test code = 0.3 % 706-2) GRAN MAT x10^3(ANC) 7.91 10*3/uL 1.99-6.95 H (test code = 8499610597) IMM GRAN x10^3 (test 0.07 10*3/uL 0-0.06 H code = 1272902574) LYMPH x10^3 (test code 1.36 10*3/uL 1.09-3.23 = 731-0) MONO x10^3 (test code 0.85 10*3/uL 0.36-1.02 = 742-7) EOS x10^3 (test code = 0.03 10*3/uL 0.06-0.53 L 711-2) BASO x10^3 (test code 0.03 10*3/uL 0.01-0.09 = 704-7) Lab Interpretation Abnormal (test code = 02604-6) [facility] HospitalCOMPRE[facility]ENS[facility] [id number] 00:00:00 Test Item Value Reference Range Interpretation Comments GLUCOSE (test code = 2217) 147 MG/DL BUN (test code = 2208) 13 MG/DL CREATININE (test code = 2214) 0.64 MG/DL eGFR AMER. (test code 145 ML/MIN/1.73 = 19783) eGFR NON- AMER. (test 125 ML/MIN/1.73 code = 17187) CALC BUN/CREAT (test code = 20 RATIO [...] A/G RATIO (test code = 2.0 RATIO 2233) BILIRUBIN, TOTAL (test code = 0.3 MG/DL 2206) ALKALINE PHOSPHATASE (test 70 U/L code = 2204) AST (test code = 2218) 21 U/L ALT (test code = 2219) 24 U/L LIPID [id number] 00:00:00 Test Item Value Reference Range Interpretation Comments CHOLESTEROL (test code = 2210) 227 MG/DL TRIGLYCERIDES (test code = 2232) 164 MG/DL HDL CHOLESTEROL (test code = 2220) 42 MG/DL CALC LDL CHOL (test code = 2237) 155 MG/DL RISK RATIO LDL/HDL (test code = 3.69 RATIO 2238) CBC W/AUTO [id number] 00:00:00 Test Item Value Reference Range Interpretation [...] code = 1015) 235 K/UL CBC W/AUTO [id number] 00:00:00 Test Item Value Reference Range Interpretation [...] code = 1015) 235 K/UL COMPREHENSIVE METABOLIC [id number] 00:00:00 Test Item Value Reference Range Interpretation Comments GLUCOSE (test code = 2217) 147 MG/DL BUN (test code = 2208) 13 MG/DL CREATININE (test code = 2214) 0.64 MG/DL eGFR AMER. (test code 145 ML/MIN/1.73 = 31707) eGFR NON- AMER. (test 125 ML/MIN/1.73 code = 48091) CALC BUN/CREAT (test code = 20 RATIO [...] CALC GLOBULIN (test code = 2.3 G/DL 224) CALC A/G RATIO (test code = 2.0 RATIO 2234) BILIRUBIN, TOTAL (test code = 0.3 MG/DL 2206) ALKALINE PHOSPHATASE (test 70 U/L code = 2204) AST (test code = 2218) 21 U/L ALT (test code = 2219) 24 U/L COMPREHENSIVE METABOLIC [id number] 00:00:00 Test Item Value Reference Range Interpretation Comments GLUCOSE (test code = 2217) 147 MG/DL BUN (test code = 2208) 13 MG/DL CREATININE (test code = 2214) 0.64 MG/DL eGFR AMER. (test code 145 ML/MIN/1.73 = 30127) eGFR NON- AMER. (test 125 ML/MIN/1.73 code = 54562) CALC BUN/CREAT (test code = 20 RATIO [...] (test code = 2219) 24 U/L LIPID [id number] 00:00:00 Test Item Value Reference Range Interpretation Comments CHOLESTEROL (test code = 2210) 227 MG/DL TRIGLYCERIDES (test code = 2232) 164 MG/DL HDL CHOLESTEROL (test code = 2220) 42 MG/DL CALC LDL CHOL (test code = 2237) 155 MG/DL RISK RATIO LDL/HDL (test code = 3.69 RATIO 2238) LIPID [id number] 00:00:00 Test Item Value Reference Range Interpretation Comments CHOLESTEROL (test code = 2210) 227 MG/DL TRIGLYCERIDES (test code = 2232) 164 MG/DL HDL CHOLESTEROL (test code = 2220) 42 MG/DL CALC LDL CHOL (test code = 2237) 155 MG/DL RISK RATIO LDL/HDL (test code = 3.69 RATIO 2238) CBC W/AUTO [id number] 00:00:00 Test Item Value Reference Range Interpretation [...] code = 1015) 235 K/UL CBC W/AUTO [id number] 00:00:00 Test Item Value Reference Range Interpretation [...] code = 1015) 235 K/UL CBC W/AUTO [id number] 00:00:00 Test Item Value Reference Range Interpretation [...] code = 1015) 235 K/UL COMPREHENSIVE METABOLIC [id number] 00:00:00 Test Item Value Reference Range Interpretation Comments GLUCOSE (test code = 2217) 147 MG/DL BUN (test code = 2208) 13 MG/DL CREATININE (test code = 2214) 0.64 MG/DL eGFR AMER. (test code 145 ML/MIN/1.73 = 44427) eGFR NON- AMER. (test 125 ML/MIN/1.73 code = 85435) CALC BUN/CREAT (test code = 20 RATIO 2235) SODIUM (test code = 2231) 141 MEQ/L POTASSIUM (test code = 2228) 4.3 MEQ/L CHLORIDE (test code = 2215) 105 MEQ/L CARBON DIOXIDE (test code = 24 MEQ/L 220) CALCIUM (test code = 2209) 9.1 MG/DL PROTEIN, TOTAL (test code = 6.8 G/DL 222) ALBUMIN (test code = 2201) 4.5 G/DL CALC GLOBULIN (test code = 2.3 G/DL 2240) CALC A/G RATIO (test code = 2.0 RATIO 2234) BILIRUBIN, TOTAL (test code = 0.3 MG/DL 220) ALKALINE PHOSPHATASE (test 70 U/L code = 2204) AST (test code = 2218) 21 U/L ALT (test code = 2219) 24 U/L COMPREHENSIVE METABOLIC [id number] 00:00:00 Test Item Value Reference Range Interpretation Comments GLUCOSE (test code = 2217) 147 MG/DL BUN (test code = 2208) 13 MG/DL CREATININE (test code = 2214) 0.64 MG/DL eGFR AMER. (test code 145 ML/MIN/1.73 = 17091) eGFR NON- AMER. (test 125 ML/MIN/1.73 code = 36222) CALC BUN/CREAT (test code = 20 RATIO [...] ALKALINE PHOSPHATASE (test 70 U/L code = 220) AST (test code = 2218) 21 U/L ALT (test code = 2219) 24 U/L COMPREHENSIVE METABOLIC [id number] 00:00:00 Test Item Value Reference Range Interpretation Comments GLUCOSE (test code = 2217) 147 MG/DL BUN (test code = 2208) 13 MG/DL CREATININE (test code = 2214) 0.64 MG/DL eGFR AMER. (test code 145 ML/MIN/1.73 = 70156) eGFR NON- AMER. (test 125 ML/MIN/1.73 code = 75021) CALC BUN/CREAT (test code = 20 RATIO [...] (test code = 2219) 24 U/L LIPID [id number] 00:00:00 Test Item Value Reference Range Interpretation Comments CHOLESTEROL (test code = 2210) 227 MG/DL TRIGLYCERIDES (test code = 2232) 164 MG/DL HDL CHOLESTEROL (test code = 2220) 42 MG/DL CALC LDL CHOL (test code = 2237) 155 MG/DL RISK RATIO LDL/HDL (test code = 3.69 RATIO 2238) LIPID [id number] 00:00:00 Test Item Value Reference Range Interpretation Comments CHOLESTEROL (test code = 2210) 227 MG/DL TRIGLYCERIDES (test code = 2232) 164 MG/DL HDL CHOLESTEROL (test code = 2220) 42 MG/DL CALC LDL CHOL (test code = 2237) 155 MG/DL RISK RATIO LDL/HDL (test code = 3.69 RATIO 2238) CBC W/AUTO [id number] 00:00:00 Test Item Value Reference Range Interpretation [...] code = 1015) 235 K/UL CBC W/AUTO [id number] 00:00:00 Test Item Value Reference Range Interpretation [...] code = 1015) 235 K/UL CBC W/AUTO [id number] 00:00:00 Test Item Value Reference Range Interpretation [...] (test code = 1015) 235 K/UL LIPID [id number] 00:00:00 Test Item Value Reference Range Interpretation Comments CHOLESTEROL (test code = 2210) 227 MG/DL TRIGLYCERIDES (test code = 2232) 164 MG/DL HDL CHOLESTEROL (test code = 2220) 42 MG/DL CALC LDL CHOL (test code = 2237) 155 MG/DL RISK RATIO LDL/HDL (test code = 3.69 RATIO 2238) CBC W/AUTO [id number] 00:00:00 Test Item Value Reference Range Interpretation [...] code = 1015) 235 K/UL CBC W/AUTO [id number] 00:00:00 Test Item Value Reference Range Interpretation [...] 1015) 235 K/UL CT ABDOMEN PELVIS W [id number] 23:59:14 No acute intra-abdominal or pelvic process. [...] subchondral collapse.Preliminary Report Dictated by Resident: Jared oRdríguez MD., have reviewed this study and agree with theabove report. [facility]IN[facility]IS[facility] 22:24:00 Test Item Value Reference Range Interpretation Comments APPEARANCE (test code = Clear Clear 9557470858) COLOR (test code = Yellow Yellow 6762111955) PH (test code = 4.8-8.0 5362967927) SP GRAVITY (test code = 1.003-1.030 1642963527) GLU U QUAL (test code = Normal Normal 9325420604) BLOOD (test code = Negative Negative INTERFERE NCE FROM 5745384063) ASCORBIC ACID M AY CAUSE FALSE NEG ATIVE RESULT KETONES (test code = Negative Negative 3369029251) PROTEIN (test code = Negative Negative 2887-8) UROBILIN (test code = Normal Normal 0776998810) BILIRUBIN (test code = Negative Negative 7738383537) NITRITE (test code = Negative Negative 7249632869) LEUK ARON (test code = Negative Negative 4081482073) RBC/HPF (test code = See_Comment [Autom ated message] 5742003532) The system [employer] generated this result transmitted ref erence range: 0 - 3 HP F. The reference range was not used to int erpret this result as normal/abnormal . WBC/HPF (test code = <1 See_Comment [Autom ated message] 6116366236) The system [employer] generated this result transmitted ref erence range: 0 - 5 HP F. The reference range was not used to int erpret this result as normal/abnormal . BACTERIA (test code = Few Negative A 6143984900) MUCOUS (test code = Slight Negative LPF A 7214513032) Lab Interpretation (test Abnormal code = 69499-9) [facility]. METABOLIC PANEL (18020)2020-06-28 21:46:00 Test Item Value Reference Range Interpretation Comments NA (test code = 136 mmol/L 135-145 0115980201) K (test code = 4.3 mmol/L 3.5-5 8049716751) CL (test code = 104 mmol/L 98-108 3022929146) CO2 TOTAL (test code = 23 mmol/L 23-31 0950475499) AGAP (test code = 2-16 5909918695) BUN (test code = 13 mg/dL 7-23 4420341134) GLUCOSE (test code = 99 mg/dL 70-110 3310614015) CREATININE (test code = 0.61 mg/dL 0.6-1.25 9519034851) TOTAL BILI (test code = 0.9 mg/dL 0.1-1.9 1845048973) CALCIUM (test code = 9.3 mg/dL 8.6-10.6 3265416871) T PROTEIN (test code = 8.0 g/dL 6.3-8.2 9085700963) ALBUMIN (test code = 4.8 g/dL 3.5-5 7948271380) ALK PHOS (test code = 60 U/L 34-122 4408432923) ALTv (test code = 372 U/L 5-50 H 1742-6) AST(SGOT) (test code = 202 U/L 13-40 H 1377756527) eGFR Calculation mL/min/1.73m2 (Non-) (test code = 2596319598) eGFR Calculation mL/min/1.73m2 () (test code = 4585455308) LILLIE (test code = LILLIE) Association of [...] tests). Lab Interpretation Abnormal (test code = 61502-9) [facility]IP[facility] 21:46:00 Test Item Value Reference Range Interpretation Comments LIPASE (test code = 5886343760) 63 U/L 0-220 Lab Interpretation (test code = Normal 07885-2) [facility]CBC WITH [id number] 21:34:00 Test Item Value Reference Range Interpretation Comments WBC (test code = See_Comment [Automated 6190-2) message] The sy stem which generated this result transmitted reference range : 4.20 - 10.70 10*3/?L. The reference range was not used to interpret this result as normal/abnormal . RBC (test code = See_Comment L [Automated 019-8) message] The sy stem which generated this [...] RDW-SD (test code = 39.6 fL 38.5-51.6 77461-1) RDW-CV (test code = 12.1 % 12.1-15.4 788-0) PLT (test code = See_Comment [Automated 837-3) message] The sy stem which generated this result transmitted reference range : 150 - 328 10*3/ ?L. The reference r betzy was not used to interpret this result as normal/abnormal . MPV (test code = 9.0 fL 9.8-13 L 04884-4) NRBC/100 WBC (test See_Comment [Automat ed code = 9644097605) message] The system which generated this result transmitted reference range : 0.0 - 10.0 /100 WBCs. The refer ence range was not u sed to interpret th is result as normal/abnormal . NRBC x10^3 (test code <0.01 See_Comment [Auto mated = [id number]) message] The s ystem which generated this result transmitted reference range : 10*3/?L. The reference range was not used to interpret this result as normal/abnormal . GRAN MAT (NEUT) % 58.4 % (test code = 770-8) IMM GRAN % (test code 0.50 % = [id number]) LYMPH % (test code = 25.0 % 736-9) MONO % (test code = 12.3 % 5905-5) EOS % (test code = 3.3 % 713-8) BASO % (test code = 0.5 % 706-2) GRAN MAT x10^3(ANC) 3.84 10*3/uL 1.99-6.95 (test code = 7283326076) IMM GRAN x10^3 (test 0.03 10*3/uL 0-0.06 code = [id number]) LYMPH x10^3 (test code 1.64 10*3/uL 1.09-3.23 = 731-0) MONO x10^3 (test code 0.81 10*3/uL 0.36-1.02 = 742-7) EOS x10^3 (test code = 0.22 10*3/uL 0.06-0.53 711-2) BASO x10^3 (test code 0.03 10*3/uL 0.01-0.09 = 704-7) Lab Interpretation Abnormal (test code = 95339-3) [facility] 10:12:00 Test Item Value Reference Range Interpretation Comments NA (test code = 139 mmol/L 135-145 [id number]) K (test code = 4.0 mmol/L 3.5-5 6701486681) CL (test code = 110 mmol/L 98-108 H 0428908292) CO2 TOTAL (test code = 22 mmol/L 23-31 L 3969004293) AGAP (test code = 2-16 1518157431) BUN (test code = 10 mg/dL 7-23 3508842177) GLUCOSE (test code = 104 mg/dL 70-110 7293147705) CREATININE (test code = 0.65 mg/dL 0.6-1.25 1001115892) TOTAL BILI (test code = 0.9 mg/dL 0.1-1.6 6171877938) CALCIUM (test code = 9.2 mg/dL 8.6-10.6 7501755853) T PROTEIN (test code = 6.9 g/dL 6.3-8.2 8110646282) ALBUMIN (test code = 4.1 g/dL 3.5-5 6936021838) ALK PHOS (test code = 66 U/L 34-122 6968154317) ALTv (test code = 195 U/L 5-50 H 1742-6) AST(SGOT) (test code = 134 U/L 13-40 H 7763743179) eGFR Calculation mL/min/1.73m2 (Non-) (test code = 0181324403) eGFR Calculation mL/min/1.73m2 () (test code = 4682397423) LILLIE (test code = LILLIE) Association of [...] tests). Lab Interpretation Abnormal (test code = 80166-0) [facility] [id number] 01:37:33 1. ?Hyperechoic and mild coarse hepatic echotexture, nonspecific, and maybe seen with hepatocellular disease, including steatosis. No focal hepaticlesions identified. Preliminary Report Dictated by Resident: Lisa Coko MD., have reviewed this study and agree [...] aorta measures 2.3 cm in AP diameter. [facility], Radiant Results Inft User - 06/23/2020 8:38 [...] reviewed this study and agree with the abovereport.[facility] / [facility] - DRUG SCREEN TRIAGE 2020-06-23 12:49:00 Test Item Value Reference Range Interpretation Comments BENZO U (test code = Presumptive Negative A 1420060380) Positive ANA MARIA U (test code = Negative Negative 5552349155) AMPHET (test code = Negative Negative 7171271324) THC (test code = Presumptive Negative A Confirmatio n of 2512783491) Positive Presumptive Positive THC result requires physician order . METHADONE (test code Negative Negative = 0147386530) Meth U (test code = Negative Negative 4586278323) OPIATES (test code = Negative Negative 8904400015) Cocaine Metabolite Negative Negative (test code = 2674026266) PROPOXY (test code = Negative Negative 7783125555) Tric U (test code = Negative Negative 1319063698) PCP (test code = Negative Negative 9295402219) OXYCOD (test code = Negative Negative 4765017315) LILLIE (test code = Urine Drug Cutoff [...] testing). Lab Interpretation Abnormal (test code = 61640-6) [facility] METABOLIC PANEL (NA, K, CL, CO2, GLUCOSE, BUN, CREATININE, CA)2020-06-23 11:37:00 Test Item Value Reference Range Interpretation Comments NA (test code = 139 mmol/L 135-145 7238430015) K (test code = 4.0 mmol/L 3.5-5 2458716535) CL (test code = 108 mmol/L 98-108 9862649117) CO2 TOTAL (test code = 25 mmol/L 23-31 3845279144) AGAP (test code = 2-16 5926720064) BUN (test code = 8 mg/dL 7-23 6308764911) GLUCOSE (test code = 105 mg/dL 70-110 2006195991) CREATININE (test code 0.65 mg/dL 0.6-1.25 = 5645381604) CALCIUM (test code = 8.7 mg/dL 8.6-10.6 2468480096) eGFR Calculation mL/min/1.73m2 (Non-) (test code = 6033643608) eGFR Calculation mL/min/1.73m2 () (test code = 8497535989) LILLIE (test code = LILLIE) Association of [...] or urine or abnormalities in imaging tests). [facility] 11:37:00 Test Item Value Reference Range Interpretation Comments MAGNESIUM (test code = 1011247036) 1.9 mg/dL 1.7-2.4 Lab Interpretation (test code = Normal 73702-5) [facility] 1 [id number] 01:36:48 No acute cardiopulmonary abnormality. Preliminary Report Dictated by Resident: Lisa Mendiola MD., have reviewed this study and agree with the abovereport.EXAM: XR CHEST 1 VW CLINICAL INDICATION: SOB COMPARISON: None FINDINGS: The lungs are well-expanded and clear without focal consolidation, pleuraleffusion, or pneumothorax. Mild pulmonary vascular congestion. The cardiac silhouette is normal in size. No acute osseous abnormality. [facility], Radiant Results Inft User - 06/22/2020 8:37 PM CDTEXAM: XR CHEST 1 VWCLINICAL INDICATION: SOB COMPARISON: NoneFINDINGS:The lungs are well-expanded andclear without focal consolidation, pleuraleffusion, or pneumothorax. Mild pulmonary vascular congestion.The cardiac silhouette is normal in size. No acute osseous abnormality. IMPRESSIONNo acute cardiopulmonary abnormality.Preliminary Report Dictated by Resident: Lisa Walker MD., have reviewed this study and agree with the abovereport.[facility] ([facility] NOW RAPID TESTING)2020-06-23 00:58:00 Test Item Value Reference Range Interpretation Comments SARS-CoV-2 Rapid ID NOW Not Detected Not Detected (test code = 40581-0) LILLIE (test code = LILLIE) ID NOW COVID-19 Assay is an isothermal nucleic acid amplification test intended for the qualitative detection of nucleic acid from SARS-CoV-2 viral RNA in nasopharyngeal (CARD GRADER) specimens. It is used under Emergency Use [...] indicated. Lab Interpretation Normal (test code = 10859-1) [facility] [id number] 00:50:00 Test Item Value Reference Range Interpretation Comments NT-proBNP (test code <11 See_Comment [Autom ated = 7975019165) message] The system which generated this result transmitted reference range : <=125 pg/mL. e reference range was not used to interpret this result as normal/abnormal . LILLIE (test code = LILLIE) Biotin has been reported to cause a negative bias, interpret results relative to patient's use of biotin. Lab Interpretation Normal (test code = 93919-4) [facility] HospitalTroponin [id number] 23:46:00 Test Item Value Reference Range Interpretation Comments TROPONIN I (test <0.012 See_Comment [Automated code = 8772375904) message] The system which generated this result [...] ? Lab Interpretation Normal (test code = 23134-8) [facility] (NA, K, CL, CO2, GLUCOSE, BUN, CREATININE, CA)2020-06-22 23:35:00 Test Item Value Reference Range Interpretation Comments NA (test code = 141 mmol/L 135-145 3265056645) K (test code = 4.2 mmol/L 3.5-5 3860674158) CL (test code = 105 mmol/L 98-108 7350054760) CO2 TOTAL (test code = 23 mmol/L 23-31 1887232925) AGAP (test code = 2-16 2457096914) BUN (test code = 8 mg/dL 7-23 4996784143) GLUCOSE (test code = 114 mg/dL 70-110 H 9622415114) CREATININE (test code = 0.65 mg/dL 0.6-1.25 6027949396) CALCIUM (test code = 10.2 mg/dL 8.6-10.6 1157383492) eGFR Calculation mL/min/1.73m2 (Non-) (test code = 3523072929) eGFR Calculation mL/min/1.73m2 () (test code = 2707247693) LILLIE (test code = LILLIE) Association of [...] tests). Lab Interpretation Abnormal (test code = 07259-9) [facility]2020-08-02 23:35:00 Test Item Value Reference Range Interpretation Comments MAGNESIUM (test code = 2155250185) 2.0 mg/dL 1.7-2.4 Lab Interpretation (test code = Normal 67941-0) [facility] HospitalETHANOL2020-08-02 23:35:00 Test Item Value Reference Range Interpretation Comments ALCOHOL (test code = 13 mg/dL 1468915005) LILLIE (test code = LILLIE) <10 Uwsmqooq67-075 Toxic>100 Depression of MASTER CONTROL ENGINEER>400 Fatalities Reported [facility] HospitalHepatic Function Panel (ALB, T.PRO, BILI T, BU/BC, ALT, AST, ALK PHOS)2020-06-22 23:34:00 Test Item Value Reference Range Interpretation Comments TOTAL BILI (test code = 1497951324) 0.7 mg/dL 0.1-1.1 BILI UNCON (test code = 1832108731) 0.7 mg/dL 0.1-1.1 BILI CONJ (test code = 1800603057) 0.0 mg/dL 0-0.3 T PROTEIN (test code = 6545376343) 9.1 g/dL 6.3-8.2 H ALBUMIN (test code = 5611261770) 5.2 g/dL 3.5-5 H ALK PHOS (test code = 3074782650) 93 U/L 34-122 ALTv (test code = 1742-6) 296 U/L 5-50 H AST(SGOT) (test code = 3165030291) 183 U/L 13-40 H Lab Interpretation (test code = Abnormal 23864-7) [facility] HospitalPHOSPHORUS2020-08-02 23:34:00 Test Item Value Reference Range Interpretation Comments PHOSPHORUS (test code = 7148635838) 4.0 mg/dL 2.5-5 Lab Interpretation (test code = Normal 46736-9) [facility] HospitalUrinalysis2020-08-02 23:28:00 Test Item Value Reference Range Interpretation Comments APPEARANCE (test code = Clear Clear 4142155766) COLOR (test code = Yellow Yellow 6277084550) PH (test code = 4.8-8.0 1249515634) SP GRAVITY (test code = 1.003-1.030 8436113726) GLU U QUAL (test code = Normal Normal 6107952542) BLOOD (test code = Negative Negative 9683107988) KETONES (test code = Negative Negative 3374239547) PROTEIN (test code = Negative Negative 2887-8) UROBILIN (test code = Normal Normal 3066793295) BILIRUBIN (test code = Negative Negative 4533803669) NITRITE (test code = Negative Negative 9612626842) LEUK ARON (test code = Negative Negative 5314669875) RBC/HPF (test code = <1 See_Comment [Autom ated message] 1335591318) The system [employer] generated this result transmitted ref erence range: 0 - 3 HP F. The reference range was not used to int erpret this result as normal/abnormal . WBC/HPF (test code = See_Comment [Autom ated message] 3708950628) The system [employer] generated this result transmitted ref erence range: 0 - 5 HP F. The reference range was not used to int erpret this result as normal/abnormal . BACTERIA (test code = Negative Negative 2963426431) MUCOUS (test code = Slight Negative LPF A 7554310439) HYAL CAST (test code = See_Comment [Aut omated message] 1273633800) The system [employer] generated this result transmitted ref erence range: <=2 LPF. The reference range was not used to int erpret this result as normal/abnormal . Lab Interpretation (test Abnormal code = 67507-2) [facility] with [id number] 23:22:00 Test Item Value Reference Range Interpretation [...] RDW-SD (test code = 40.5 fL 38.5-51.6 15301-6) RDW-CV (test code = 12.0 % 12.1-15.4 L 788-0) PLT (test code = See_Comment [Automated 777-3) message] The sy stem which generated this result transmitted reference range : 150 - 328 10*3/ ?L. The reference r betzy was not used to interpret this result as normal/abnormal . MPV (test code = 8.3 fL 9.8-13 L 40919-2) NRBC/100 WBC (test See_Comment [Automat ed code = 4982646495) message] The system which generated this result transmitted reference range : 0.0 - 10.0 /100 WBCs. The refer ence range was not u sed to interpret th is result as normal/abnormal . NRBC x10^3 (test code <0.01 See_Comment [Auto mated = 6828062993) message] The s [employer] which generated this result transmitted reference range : 10*3/?L. The reference range was not used to interpret this result as normal/abnormal . GRAN MAT (NEUT) % 61.8 % (test code = 770-8) IMM GRAN % (test code 0.70 % = 5547280265) LYMPH % (test code = 23.5 % 736-9) MONO % (test code = 11.6 % 5905-5) EOS % (test code = 1.7 % 713-8) BASO % (test code = 0.7 % 706-2) GRAN MAT x10^3(ANC) 4.65 10*3/uL 1.99-6.95 (test code = 8328637322) IMM GRAN x10^3 (test 0.05 10*3/uL 0-0.06 code = 3929806745) LYMPH x10^3 (test code 1.77 10*3/uL 1.09-3.23 = 731-0) MONO x10^3 (test code 0.87 10*3/uL 0.36-1.02 = 742-7) EOS x10^3 (test code = 0.13 10*3/uL 0.06-0.53 711-2) BASO x10^3 (test code 0.05 10*3/uL 0.01-0.09 = 704-7) Lab Interpretation Abnormal (test code = 58975-0) [facility] HospitalCOMPREHENSIVE METABOLIC PANEL [ADDED] 2020-06-11 00:00:00 Test Item Value Reference Range Interpretation Comments GLUCOSE (test code = 2217) 143 MG/DL BUN (test code = 2208) 9 MG/DL CREATININE (test code = 2214) 0.75 MG/DL eGFR AMER. (test code 137 ML/MIN/1.73 = 99105) eGFR NON- AMER. (test 118 ML/MIN/1.73 code = 73174) CALC BUN/CREAT (test code = 12 RATIO 2235) SODIUM (test code = 2231) 143 MEQ/L POTASSIUM (test code = 2228) 4.7 MEQ/L CHLORIDE (test code = 2215) 102 MEQ/L CARBON DIOXIDE (test code = 28 MEQ/L 2206) CALCIUM (test code = 2209) 9.7 MG/DL [...] eGFR AMER. (test code 137 ML/MIN/1.73 = 59374) eGFR NON- AMER. (test 118 ML/MIN/1.73 code = 07824) CALC BUN/CREAT (test code = 12 RATIO [...] CALC GLOBULIN (test code = 2.6 G/DL 224) CALC A/G RATIO (test code = 1.8 [...] eGFR AMER. (test code 137 ML/MIN/1.73 = 21165) eGFR NON- AMER. (test 118 ML/MIN/1.73 code = 34744) CALC BUN/CREAT (test code = 12 RATIO [...] eGFR AMER. (test code 137 ML/MIN/1.73 = 95669) eGFR NON- AMER. (test 118 ML/MIN/1.73 code = 58439) CALC BUN/CREAT (test code = 12 RATIO [...] CALC GLOBULIN (test code = 2.6 G/DL 224) CALC A/G RATIO (test code = 1.8 [...] eGFR AMER. (test code 137 ML/MIN/1.73 = 24128) eGFR NON- AMER. (test 118 ML/MIN/1.73 code = 86370) CALC BUN/CREAT (test code = 12 RATIO 2235) SODIUM (test code = 2231) 143 MEQ/L POTASSIUM (test code = 2228) 4.7 MEQ/L CHLORIDE (test code = 2215) 102 MEQ/L CARBON DIOXIDE (test code = 28 MEQ/L 2206) CALCIUM (test code = 2209) 9.7 MG/DL [...] eGFR AMER. (test code 137 ML/MIN/1.73 = 45789) eGFR NON- AMER. (test 118 ML/MIN/1.73 code = 24199) CALC BUN/CREAT (test code = 12 RATIO 2235) SODIUM (test code = 2231) 143 MEQ/L POTASSIUM (test code = 2228) 4.7 MEQ/L CHLORIDE (test code = 2215) 102 MEQ/L CARBON DIOXIDE (test code = 28 MEQ/L 2206) CALCIUM (test code = 2209) 9.7 MG/DL [...] = 4.15 RATIO 2238) HEPATITIS B SURFACE [id number] 18:36:00 Test Item Value Reference Range Interpretation Comments HBsAB (test code = Negative 1810648475) HBsAb mIU/mL Semi-Quantitative (test code = 8523721621) LILLIE (test code = Interpretation: LILLIE) ?Hepatitis B Surface Antibody ? Negative - Patient is considered to be not immune to infection with HBV. ? ? Positive - Anti-HBs detected at greater than or equal to 12 mIU/mL. ?Patient is considered to be immune to infection with HBV. ? [facility] HospitalHCV [id number] 18:36:00 Test Item Value Reference Range Interpretation Comments HCV Ab (test code = 93640-3) Negative HCV Semi-Quantitative (test code = 45857-1) [facility] HospitalHAV ANTIBODY (IGG AND IGM)2020-01-19 18:36:00 Test Item Value Reference Range Interpretation Comments HAV Total (test code = 7032956816) Negative HAVT Semi-Quantitative (test code = 8622940166) [facility] HospitalHEPATITIS B CORE ANTIBODY [id number] 18:23:00 Test Item Value Reference Range Interpretation Comments HBCM Negative Semi-Quantitative (test code = 44899-8) LILLIE (test code = Biotin has been reported LILLIE) to cause a negative bias, interpret results relative to patient's use of biotin. [facility]HEEPH[facility]ENTERTIS B SURFACE [id number] 18:18:00 Test Item Value Reference Range Interpretation Comments HBsAg Semi-Quantitative (test code = Negative Negative 5195-3) [facility] HospitalETHANOL2020-02-29 12:56:00 Test Item Value Reference Range Interpretation Comments ALCOHOL (test code = <10 mg/dL 7173253646) LILLIE (test code = LILLIE) <10 [id number] Toxic>100 Depression of MASTER CONTROL ENGINEER>400 Fatalities Reported [facility]. METABOLIC PANEL (52204)2020-01-19 12:41:00 Test Item Value Reference Range Interpretation Comments NA (test code = 141 mmol/L 135-145 3282228574) K (test code = 3.8 mmol/L 3.5-5 9656502425) CL (test code = 108 mmol/L 98-108 1634058974) CO2 TOTAL (test code = 25 mmol/L 23-31 9543887865) AGAP (test code = 2-16 3680706007) BUN (test code = 12 mg/dL 7-23 2248661561) GLUCOSE (test code = 96 mg/dL 70-110 1547071690) CREATININE (test code = 0.52 mg/dL 0.6-1.25 L 0842636577) TOTAL BILI (test code = 0.6 mg/dL 0.1-1.4 2028436494) CALCIUM (test code = 8.7 mg/dL 8.6-10.6 6609052395) T PROTEIN (test code = 6.5 g/dL 6.3-8.2 1075290053) ALBUMIN (test code = 4.1 g/dL 3.5-5 2200156651) ALK PHOS (test code = 72 U/L 34-122 1972793549) ALTv (test code = 132 U/L 5-50 H 1742-6) AST(SGOT) (test code = 90 U/L 13-40 H 5299060029) eGFR Calculation mL/min/1.73m2 (Non-) (test code = 7539299757) eGFR Calculation mL/min/1.73m2 () (test code = 4638906236) LILLIE (test code = LILLIE) Association of [...] tests). Lab Interpretation Abnormal (test code = 88349-2) [facility] WITH [id number] 11:42:00 Test Item Value Reference Range Interpretation Comments WBC (test code = See_Comment [Automated 7390-2) message] The sy stem which generated this result transmitted reference range : 4.20 - 10.70 10*3/?L. The reference range was not used to interpret this result as normal/abnormal . RBC (test code = See_Comment L [Automated 669-8) message] The sy stem which generated this [...] RDW-SD (test code = 41.3 fL 38.5-51.6 33080-1) RDW-CV (test code = 12.3 % 12.1-15.4 788-0) PLT (test code = See_Comment [Automated 777-3) message] The sy stem which generated this result transmitted reference range : 150 - 328 10*3/ ?L. The reference r betzy was not used to interpret this result as normal/abnormal . MPV (test code = 8.6 fL 9.8-13 L 72126-9) NRBC/100 WBC (test See_Comment [Automat ed code = 8455848208) message] The system which generated this result transmitted reference range : 0.0 - 10.0 /100 WBCs. The refer ence range was not u sed to interpret th is result as normal/abnormal . NRBC x10^3 (test code <0.01 See_Comment [Auto mated = 0519756800) message] The s ystem which generated this result transmitted reference range : 10*3/?L. The reference range was not used to interpret this result as normal/abnormal . GRAN MAT (NEUT) % 46.6 % (test code = 770-8) IMM GRAN % (test code 0.60 % = 1237709435) LYMPH % (test code = 39.3 % 736-9) MONO % (test code = 10.2 % 5905-5) EOS % (test code = 2.4 % 713-8) BASO % (test code = 0.9 % 706-2) GRAN MAT x10^3(ANC) 3.17 10*3/uL 1.99-6.95 (test code = 3334318483) IMM GRAN x10^3 (test 0.04 10*3/uL 0-0.06 code = 8923234119) LYMPH x10^3 (test code 2.67 10*3/uL 1.09-3.23 = 731-0) MONO x10^3 (test code 0.69 10*3/uL 0.36-1.02 = 742-7) EOS x10^3 (test code = 0.16 10*3/uL 0.06-0.53 711-2) BASO x10^3 (test code 0.06 10*3/uL 0.01-0.09 = 704-7) Lab Interpretation Abnormal (test code = 16185-1) [facility] HospitalHIV [facility]/2 AG-AB WITH [id number] 06:15:00 Test Item Value Reference Range Interpretation Comments HIV Negative Negative Semi-quantitative (test code = 64663-8) LILLIE (test code = Non-reactive for HIV-1 LILLIE) antigen and HIV-1/HIV-2 antibodies. ?No laboratory evidence of HIV infection. ?Repeat in 2-4 weeks if acute HIV infection is suspected. [facility] HospitalTHYROID STIMULATING [id number] 06:05:00 Test Item Value Reference Range Interpretation Comments TSH (test code = See_Comment [Automated message] 7698088047) The system [employer] generated this result transmitted ref erence range: 0.45 - 4 .70 mIU/L. The refe rence range was not u sed to interpret this result as normal/abnor mal. Lab Interpretation (test Normal code = 99967-8) [facility] HospitalGLYCOSYLATED HEMOGLOBIN (A1C)2020-01-19 05:39:00 Test Item Value Reference [...] Indicated Lab Interpretation Normal (test code = 85009-0) [facility] HospitalCREATINE [id number] 05:33:00 Test Item Value Reference Range Interpretation Comments CK (test code = 1108866703) 143 U/L 33-194 Lab Interpretation (test code = Normal 00354-1) [facility] HospitalAD / C - DRUG SCREEN [id number] 00:30:00 Test Item Value Reference Range Interpretation Comments BENZO U (test code = Negative Negative 5540063871) ANA MARIA U (test code = Negative Negative 4146924263) AMPHET (test code = Negative Negative 9058219046) THC (test code = Presumptive Negative A Confirmatio n of 9320326377) Positive Presumptive Positive THC result requires physician order . METHADONE (test code Negative Negative = 7689630972) Meth U (test code = Negative Negative 3094995646) OPIATES (test code = Negative Negative 2439334210) Cocaine Metabolite Negative Negative (test code = 4021103857) PROPOXY (test code = Negative Negative 2382632141) Tric U (test code = Negative Negative 5093358364) PCP (test code = Negative Negative 4734724777) OXYCOD (test code = Negative Negative 5077236011) LILLIE (test code = Urine Drug Cutoff [...] testing). Lab Interpretation Abnormal (test code = 18339-0) [facility] HospitalABBY [id number] 23:42:00 Test Item Value Reference Range Interpretation Comments TROPONIN I (test 0.003 ng/mL See_Comment [Automated code = 9937945758) message] The system which generated this result [...] ? Lab Interpretation Normal (test code = 87315-1) [facility]. METABOLIC PANEL (29260)2020-01-18 23:30:00 Test Item Value Reference Range Interpretation Comments NA (test code = 144 mmol/L 135-145 2507180426) K (test code = 3.8 mmol/L 3.5-5 5626077550) CL (test code = 107 mmol/L 98-108 9766609608) CO2 TOTAL (test code = 23 mmol/L 23-31 3456865662) AGAP (test code = 2-16 4654844774) BUN (test code = 7 mg/dL 7-23 4786256350) GLUCOSE (test code = 143 mg/dL 70-110 H 5938802615) CREATININE (test code = 0.60 mg/dL 0.6-1.25 8778991742) TOTAL BILI (test code = 0.2 mg/dL 0.1-1.1 2117683215) CALCIUM (test code = 9.5 mg/dL 8.6-10.6 0139612633) T PROTEIN (test code = 8.3 g/dL 6.3-8.2 H 0031942905) ALBUMIN (test code = 5.3 g/dL 3.5-5 H 5226234921) ALK PHOS (test code = 91 U/L 34-122 9016276733) ALTv (test code = 199 U/L 5-50 H 1742-6) AST(SGOT) (test code = 108 U/L 13-40 H 7942905176) eGFR Calculation mL/min/1.73m2 (Non-) (test code = 6283062967) eGFR Calculation mL/min/1.73m2 () (test code = 8072465897) LILLIE (test code = LILLIE) Association of [...] tests). Lab Interpretation Abnormal (test code = 35090-9) [facility] HospitalETHANOL2020-02-28 23:30:00 Test Item Value Reference Range Interpretation Comments ALCOHOL (test code = 112 mg/dL 4827588694) LILLIE (test code = LILLIE) <10 Smohmuef92-148 Toxic>100 Depression of MASTER CONTROL ENGINEER>400 Fatalities Reported [facility] WITH [id number] 23:19:00 Test Item Value Reference Range Interpretation Comments WBC (test code = See_Comment [Automated 4990-2) message] The sy stem which generated this [...] RDW-SD (test code = 40.7 fL 38.5-51.6 10055-0) RDW-CV (test code = 12.4 % 12.1-15.4 788-0) PLT (test code = See_Comment [Automated 777-3) message] The sy stem which generated this result transmitted reference range : 150 - 328 10*3/ ?L. The reference r betzy was not used to interpret this result as normal/abnormal . MPV (test code = 8.1 fL 9.8-13 L 84728-6) NRBC/100 WBC (test See_Comment [Automat ed code = 3636794524) message] The system which generated this result transmitted reference range : 0.0 - 10.0 /100 WBCs. The refer ence range was not u sed to interpret th is result as normal/abnormal . NRBC x10^3 (test code <0.01 See_Comment [Auto mated = 6986217555) message] The s ystem which generated this result transmitted reference range : 10*3/?L. The reference range was not used to interpret this result as normal/abnormal . GRAN MAT (NEUT) % 66.2 % (test code = 770-8) IMM GRAN % (test code 0.30 % = 7000198245) LYMPH % (test code = 22.7 % 736-9) MONO % (test code = 9.3 % 5905-5) EOS % (test code = 0.9 % 713-8) BASO % (test code = 0.6 % 706-2) GRAN MAT x10^3(ANC) 5.92 10*3/uL 1.99-6.95 (test code = 3745637387) IMM GRAN x10^3 (test 0.03 10*3/uL 0-0.06 code = 8364465535) LYMPH x10^3 (test code 2.03 10*3/uL 1.09-3.23 = 731-0) MONO x10^3 (test code 0.83 10*3/uL 0.36-1.02 = 742-7) EOS x10^3 (test code = 0.08 10*3/uL 0.06-0.53 711-2) BASO x10^3 (test code 0.05 10*3/uL 0.01-0.09 = 704-7) Lab Interpretation Abnormal (test code = 80150-3) [facility]"
[2023-09-20] MEDS ORDERED: NA CHLORIDE 0.9% 1,000 ML ONE (16:41)
[2023-09-20] MEDS ORDERED: DIAZEPAM 10 MG/2 ML INJ SYRINGE ONE (16:41)
[2023-09-20] MEDS ORDERED: ONDANSETRON 4 MG/2 ML VIAL ONE (16:41)
[2023-09-20 16:59] LABS: Absolute Lymphocytes (CBC) 1.4 K/uL (0.7-4.9); Hematocrit 40.8 % (39.6-49.0); Lymphocytes % 18.2 % (15.3-44.8); MCV 97.2 fL (80-100); MPV 6.7 fL (7.6-11.3); Platelets 129 thou/uL (152-406)
[2023-09-20 17:10] LABS: Protime INR 1.4
[2023-09-20 17:22] LABS: Albumin 3.7 g/dL (3.4-5.0); Bilirubin Total 1.3 mg/dL (0.2-1.0); Protein, Total 8.3 g/dL (6.4-8.2)
--- NOTE | 2023-09-20 17:34 | RAD REPORT ---
EXAM DESCRIPTION: Ribs Bilateral W/Chest - 09/20/2023 5:17 pm CLINICAL HISTORY: PAIN COMPARISON: Ribs Left dated 04/23/2023 TECHNIQUE: AP view of the chest, and Bilateral ribs, at least 3 views each. FINDINGS: Expansile callus along the antro lateral left ninth rib, suggestive of a healing fracture. No other displaced rib fracture is evident. No aggressive rib lesion. No underlying pneumothorax, effusion, infiltrate or pulmonary contusion. IMPRESSION: Healing left ninth rib fracture. Otherwise negative right rib series.
--- NOTE | 2023-09-20 17:41 | ER ---
Nurse's Notes [facility] Name: Morro Norwood Age: 38 yrs Sex: Male : 1985 Arrival Date: 09/20/2023 Time: 15:40 Bed 3 Private MD: Diagnosis: Alcohol dependence with withdrawal, uncomplicated;Fracture of one rib, left side-9th rib Presentation: 09/20 16:10 Chief complaint: Daily drinker of approx 20 beers per day last had alcohol yesterday, hb c/o tremors, headache, and anxiety. Coronavirus screen: At this time, the client does not indicate any symptoms associated with coronavirus-19. Ebola Screen: No symptoms or risks identified at this time. Risk Assessment: Do you want to hurt yourself or someone else? Patient reports no desire to harm self or others. Onset of symptoms was September 20, 2023. 16:10 Method Of Arrival: Ambulatory hb 16:10 Acuity: SHAYNE 2 hb 16:56 Initial Sepsis Screen: Does the patient meet any 2 criteria? No. Patient's initial kc6 sepsis screen is negative. Does the patient have a suspected source of infection? No. Patient's initial sepsis screen is negative. Historical: - Allergies: 16:54 Aspirin; kc6 16:54 Tylenol; kc6 - PMHx: 16:54 Anxiety; Hypertensive disorder; Alcoholism; kc6 - PSHx: 16:54 neck; kc6 - Immunization history:: Adult Immunizations unknown. - Family history:: not pertinent. - Social history:: Smoking status: unknown. - Hospitalizations: : No recent hospitalization is reported. Screenin:52 [facility] ED Fall Risk Assessment (Adult) History of falling in the last 3 months, kc6 including since admission No falls in past 3 months (0 pts) Confusion or Disorientation No (0 pts) Intoxicated or Sedated No (0 pts) Impaired Gait No (0 pts) Mobility Assist Device Used No (0 pt) Altered Elimination No (0 pt) Score/Fall Risk Level 0 - 2 = Low Risk. Abuse screen: Denies threats or abuse. Denies injuries from another. Nutritional screening: No deficits noted. Tuberculosis screening: No symptoms or risk factors identified. 16:52 [facility] Withdrawal Assessment for Alcohol, revised (CIWA-Ar): kc6 Nausea/Vomitin - Intermittent nausea with dry heaves Headache: 0 - Not present Paroxysmal Sweats: 0 - No sweats visible Anxiety: 4 - Moderately anxious, guarded Agitation: 0 - Normal actiivty Tremor: 4 - Moderate when client's hands extended Auditory Disturbances: 0 - Not present Visual Disturbances: 0 - Not present Tactile Disturbances: 0 - None Orientation and Clouding of Sensorium: 0 - Oriented and can do serial additions Total Score: 10 to 15: Mild Withdrawal. Assessment: 16:55 General: Appears in no apparent distress. comfortable, Behavior is cooperative, kc6 appropriate for age, anxious. Pain: Denies pain. Neuro: Level of Consciousness is awake, alert, obeys commands, Oriented to person, place, time, situation, Appropriate for age. Cardiovascular: Denies chest pain, Heart tones S1 S2 present Capillary refill < 3 seconds Rhythm is sinus rhythm. Respiratory: Reports shortness of breath Airway is patent Trachea midline Respiratory effort is even, unlabored, Respiratory pattern is regular, symmetrical, Breath sounds are clear bilaterally. GI: Reports nausea, Patient currently denies diarrhea, vomiting. : No signs and/or symptoms were reported regarding the genitourinary system. Urine is clear. EENT: No signs and/or symptoms were reported regarding the EENT system. Derm: No signs and/or symptoms reported regarding the dermatologic system. Skin is intact, is healthy with good turgor, Skin is pink, warm \T\ dry. Musculoskeletal: No signs and/or symptoms reported regarding the musculoskeletal system. Circulation, motion, and sensation intact. Capillary refill < 3 seconds, Range of motion: intact in all extremities. 17:41 Reassessment: d/c pending IV fluid completion. kc6 17:55 Reassessment: Patient appears in no apparent distress at this time. No changes from kc6 previously documented assessment. Patient and/or family updated on plan of care and expected duration. Pain level reassessed. Patient is alert, oriented x 3, equal unlabored respirations, skin warm/dry/pink. 18:00 Reassessment: pt unable to find a ride home at this time, states he drove himself here. kc6 discharge pending at this time as he has been administered 10mg IV Valium. Jg Rivera notified. 18:55 Reassessment: Patient appears in no apparent distress at this time. No changes from kc6 previously documented assessment. Patient and/or family updated on plan of care and expected duration. Pain level reassessed. Patient is alert, oriented x 3, equal unlabored respirations, skin warm/dry/pink. 19:31 General: Appears comfortable, Behavior is calm, cooperative. Pain: Denies pain. Neuro: ha1 Level of Consciousness is awake, alert, obeys commands, Oriented to person, place, time, situation. Cardiovascular: Denies chest pain, Capillary refill < 3 seconds Patient's skin is warm and dry. Respiratory: Airway is patent Respiratory effort is even, unlabored, Respiratory pattern is regular, symmetrical. GI: No signs and/or symptoms were reported involving the gastrointestinal system. Abdomen is round non-distended. Musculoskeletal: No signs and/or symptoms reported regarding the musculoskeletal system. Circulation, motion, and sensation intact. Range of motion: intact in all extremities. Vital Signs: 16:10 BP 168 / 102; Pulse 98; Resp 18; Temp 98; Pulse Ox 100% on R/A; Weight 81.65 kg; Height hb 5 ft. 7 in. ; Pain 5/10; 16:56 BP 126 / 97; Pulse 88; Resp 18 S; Pulse Ox 96% on R/A; kc6 17:58 BP 157 / 97; Pulse 76; Resp 14; Pulse Ox 100% ; kc6 19:32 BP 150 / 95; Pulse 78; Resp 18 S; Pulse Ox 99% on R/A; ha1 16:10 Body Mass Index 28.19 (81.65 kg, 170.18 cm) hb 16:10 Pain Scale: Adult hb ED Course: 15:43 Patient arrived in ED. mg5 15:47 Brandon Chen MD is Attending Physician. rn 16:11 Triage completed. hb 16:11 Arm band placed on. hb 16:51 Inserted saline lock: 20 gauge in left antecubital area, using aseptic technique. Blood kc6 collected. Patient maintains SpO2 saturation greater than 95% on room air. 16:53 Patient has correct armband on for positive identification. Placed in gown. Bed in low kc6 position. Call light in reach. Side rails up X2. Client placed on continuous cardiac and pulse oximetry monitoring. NIBP monitoring applied. desk monitor on. 16:59 Mallorie Garcia, JG is Primary Nurse. kc6 17:19 XRAY Ribs BILATERAL w/chest In Process Unspecified. EDMS 19:00 Report given to Mimi Akhtar RN \T\ JG Tilley. kc6 19:44 Provided Education on: need to follow with pcp . ha1 19:44 No provider procedures requiring assistance completed. IV discontinued, intact, ha1 bleeding controlled, No redness/swelling at site. Pressure dressing applied. Administered Medications: 16:51 Drug: NS 0.9% IV 1000 ml IV at 1000 ml once Route: IV; Rate: 1000 ml; Site: left kc6 antecubital; 18:27 Follow up: Response: No adverse reaction; IV Status: Completed infusion; IV Intake: kc6 1000ml 16:51 Drug: Diazepam IVP 10 mg IVP once Route: IVP; Site: left antecubital; kc6 17:41 Follow up: Response: No adverse reaction; Anxiety decreased; RASS: Alert and Calm (0) kc6 16:51 Drug: Ondansetron IVP 4 mg IVP once; over 2 minutes Route: IVP; Site: left antecubital; kc6 17:41 Follow up: Response: No adverse reaction; Nausea is decreased; Vomiting decreased kc6 Medication: 19:44 VIS not applicable for this client. ha1 Intake: 18:27 IV: 1000ml; Total: 1000ml. kc6 Outcome: 17:41 Discharge ordered by . rn 19:44 Discharged to home ambulatory, ha1 19:44 Condition: stable 19:44 Discharge instructions given to patient, Instructed on discharge instructions, follow up and referral plans. medication usage, Demonstrated understanding of instructions, follow-up care, medications, Prescriptions given X 1, 19:45 Patient left the ED. ha1 Signatures: Dispatcher [employer] EDMS Brandon Chen MD MD rn Baxter, Heather, RN RN hb Ayala, Heidy, RN RN 1 Mallorie Garcia RN RN kc6 Ev Calix mg5 Corrections: (The following items were deleted from the chart) 19:15 17:55 Reassessment: Patient appears in no apparent distress at this time. No changes kc6 from previously documented assessment. Patient and/or family updated on plan of care and expected duration. Pain level reassessed. Patient is alert, oriented x 3, equal unlabored respirations, skin warm/dry/pink. Patient is alert/active/playful, equal unlabored respirations, skin warm/dry/pink. kc6
--- NOTE | 2023-09-20 17:41 | EDPHYS ---
Physician Documentation [facility] Name: Morro Norwood Age: 38 yrs Sex: Male : 1985 Arrival Date: 09/20/2023 Time: 15:40 Bed 3 Private MD: ED Physician Brandon Chen HPI: 09/20 16:01 This 38 yrs old Male presents to ER via Unassigned with complaints of Alcohol rn Withdrawal. 16:01 Patient reports he was alcoholic and stopped drinking last drink was last night. rn Patient reports shaking and does not feel well. No fever. No vomiting. No seizure. Drinks about 20 beers a day.. Onset: The symptoms/episode began/occurred last night. Severity of symptoms: At their worst the symptoms were mild. The patient has experienced similar episodes in the past. The patient has not recently seen a physician. Historical: - Allergies: 16:54 Aspirin; kc6 16:54 Tylenol; kc6 - PMHx: 16:54 Anxiety; Hypertensive disorder; Alcoholism; kc6 - PSHx: 16:54 neck; kc6 - Immunization history:: Adult Immunizations unknown. - Family history:: not pertinent. - Social history:: Smoking status: unknown. - Hospitalizations: : No recent hospitalization is reported. ROS: 16:01 Constitutional: Negative for fever, chills, and weight loss, Cardiovascular: Negative rn for chest pain, palpitations, and edema, Respiratory: Negative for shortness of breath, cough, wheezing, and pleuritic chest pain, Abdomen/GI: Negative for abdominal pain, nausea, vomiting, diarrhea, and constipation, Back: Negative for injury and pain, MS/Extremity: Negative for injury and deformity, Skin: Negative for injury, rash, and discoloration, Neuro: Positive for generalized weakness and tremors Exam: 16:10 Constitutional: This is a well developed, well nourished patient who is awake, alert, rn endocrinology to chair without assistance or difficulty Head/Face: Normocephalic, atraumatic. ENT: Dry mucous membranes Cardiovascular: Tachycardic, regular. Respiratory: Speaking full sentences, unlabored. No increased work of breathing, no retractions or nasal flaring. Abdomen/GI: Soft, non-tender MS/ Extremity: Pulses equal, no cyanosis. Neurovascular intact. Full, normal range of motion. Equal circumference. Neuro: Awake and alert, GCS 15, oriented to person, place, time, and situation. Course bilateral tremors as well as tongue fasciculations present. 16:39 ECG was reviewed by the Attending Physician. rn Vital Signs: 16:10 BP 168 / 102; Pulse 98; Resp 18; Temp 98; Pulse Ox 100% on R/A; Weight 81.65 kg; Height hb 5 ft. 7 in. ; Pain 5/10; 16:56 BP 126 / 97; Pulse 88; Resp 18 S; Pulse Ox 96% on R/A; kc6 17:58 BP 157 / 97; Pulse 76; Resp 14; Pulse Ox 100% ; kc6 19:32 BP 150 / 95; Pulse 78; Resp 18 S; Pulse Ox 99% on R/A; ha1 16:10 Body Mass Index 28.19 (81.65 kg, 170.18 cm) hb 16:10 Pain Scale: Adult hb MDM: 15:47 Patient medically screened. rn 17:39 Differential Diagnosis Alcohol withdrawal, rib contusion, rib fracture. Data reviewed: rn vital signs, nurses notes, lab test result(s), EKG, radiologic studies, plain films, and as a result, I will discharge patient. I considered the following discharge prescriptions or medication management in the emergency department Medications were administered in the Emergency Department. See MAR. Independent interpretation of the following test(s) in the Emergency Department X-Ray: My interpretation is X-ray images negative for pneumothorax per my interpretation. Care significantly affected by the following chronic conditions: Hypertension, Liver Disease, Alcoholism. Counseling: I had a detailed discussion with the patient and/or guardian regarding the historical points, exam findings, and any diagnostic results supporting the discharge/admit diagnosis, lab results, radiology results, the need for outpatient follow up, to return to the emergency department if symptoms worsen or persist or if there are any questions or concerns that arise at home. Response to treatment: the patient's symptoms have markedly improved after treatment, and as a result, I will discharge patient. Special discussion: I discussed with the patient/guardian in detail that at this point there is no indication for admission to the hospital. It is understood, however, that if the symptoms persist or worsen the patient needs to return immediately for re-evaluation. ED course: No indication at this time for emergent admission. Spoke at length with patient and will try p.o. Librium. Patient also intends on quitting and going to rehab facility especially if Librium does not work. I have personally reviewed all of the results, including but not limited to blood tests and imaging deemed necessary to safely discharge this patient at this time. I personally went over all the results with the patient and answered all questions. Patient will follow-up with PCP and or specialist as discussed. Return precautions given and understood.. 09/20 16:00 Order name: CBC with Diff; Complete Time: 17:06 rn 09/20 16:00 Order name: ETOH Level; Complete Time: 17:33 rn 09/20 16:00 Order name: CMP; Complete Time: 17:33 rn 09/20 16:00 Order name: PT-INR; Complete Time: 17:21 rn 09/20 16:00 Order name: Lipase; Complete Time: 17:33 rn 09/20 16:12 Order name: XRAY Ribs BILATERAL w/chest; Complete Time: 17:37 rn 09/20 16:00 Order name: EKG; Complete Time: 16:01 rn 09/20 16:00 Order name: IV Start; Complete Time: 16:51 rn 09/20 16:00 Order name: EKG - Nurse/Tech; Complete Time: 16:51 rn EC:39 Rate is 68 beats/min. Rhythm is regular. QRS [place] is Normal. MI interval is normal. QRS rn interval is normal. QT interval is normal. No Q waves. T waves are Normal. No ST changes noted. Clinical impression: Normal ECG. Interpreted by me. Reviewed by me. Administered Medications: 16:51 Drug: NS 0.9% IV 1000 ml IV at 1000 ml once Route: IV; Rate: 1000 ml; Site: left kc6 antecubital; 18:27 Follow up: Response: No adverse reaction; IV Status: Completed infusion; IV Intake: kc6 1000ml 16:51 Drug: Diazepam IVP 10 mg IVP once Route: IVP; Site: left antecubital; kc6 17:41 Follow up: Response: No adverse reaction; Anxiety decreased; RASS: Alert and Calm (0) kc6 16:51 Drug: Ondansetron IVP 4 mg IVP once; over 2 minutes Route: IVP; Site: left antecubital; kc6 17:41 Follow up: Response: No adverse reaction; Nausea is decreased; Vomiting decreased kc6 Disposition Summary: 09/20/23 17:41 Discharge Ordered Notes: Location: Home rn Problem: new rn Symptoms: have improved rn Condition: Stable rn Diagnosis - Alcohol dependence with withdrawal, uncomplicated rn - Fracture of one rib, left side - 9th rib rn Followup: rn - With: Private Physician - When: As needed - Reason: Recheck today's complaints, Re-evaluation by your physician Discharge Instructions: - Discharge Summary Sheet rn - Alcohol Withdrawal Syndrome rn - Rib Fracture rn Forms: - Medication Reconciliation Form rn - Thank You Letter rn - Antibiotic furnace checker - Prescription Opioid Use rn - Patient Portal Instructions rn - Leadership Thank You Letter rn Prescriptions: - chlordiazepoxide HCl 25 mg Oral capsule - take 4 capsule ORAL route every 8 hours as needed for agitation; until symptoms rn of withdrawal controlled or stopped; 36 capsule; Refills: 0, Product Selection Permitted Signatures: Dispatcher [employer] Brandon Calvert MD MD rn Campbell, Kaitlyn, RN RN kc6 Corrections: (The following items were deleted from the chart) 16:10 16:01 Constitutional: Negative for fever, chills, and weight loss, rn rn
[2023-09-20 20:06] VITALS: TEMP 98
[2023-09-20 20:11] VITALS: BP 150/95; O2SAT 99
--- NOTE | 2023-09-22 09:51 | EKG ---
Test Date: 2023-09-20 Test Time: 16:33:19 Network Security Consultant: RAMEZ MEASUREMENT RESULTS: Intervals: Rate: 68 CO: 130 QRSD: 82 QT: 424 QTc: 450 [place]: P: 6 CO: 130 QRS: 75 T: 31 INTERPRETIVE STATEMENTS: Normal sinus rhythm Normal ECG No previous ECG available for comparison Electronically Signed On 09-22-23 09:46:54 CDT by Rakesh Huston
== END 2023-09-20 19:45 | disposition home or self-care (01) ==
LOC: ER 15:40
DX: F10.239 Alcohol dependence with withdrawal, unspecified (principal); S22.31XA Fracture of one rib, right side, initial encounter for closed fracture
CPT/HCPCS: 36415; 71111; 80053; 82077; 83690; 85025; 85610; 93005; 96361; 96374; 96375; 99285; J2405; J3360; J7030